=== PATIENT | female | born 1960 | race Hispanic/Latino ===

== ENCOUNTER 2018-01-21 16:41 | Inpatient (IN) | payer MEDICAID, OTHER ==
--- NOTE | 2018-01-21 17:09 | ED PDOC ---
HPI:STROKE - Historian Historian: Patient, Family - TPA Positive for Contraindication: No - Notes: Notes:: Pt presents to ED with Mother with c/o difficulty speaking that started @ 2:30 PM today. Pt was watching TV when she started feeling dizzy and speech became difficulty. Denies GIBSON, paresthesias, weakness, fever, head trauma. Pt recently discharged from psych unit and medications were changed but did not know which ones. Pt states shaking in arms is not new. NIHSS Stroke Scale - Date/Time Evaluation Performed Date Performed: 01/21/18 Time Performed: 17:06 When Was NIHSS Performed: Code Stroke - How Severe is the Stroke Level of Consciousness: 0=Alert LOC to Questions: 1=One correct LOC to commands: 0=Obeys both correctly Best Gaze: 0=Normal Visual: 0=No visual loss Facial: 0=Normal Motor Arm - Left: 0=No drift Motor Arm - Right: 0=No drift Motor Leg - Left: 0=No drift Motor Leg - Right: 0=No drift Limb Ataxia: 0=Absent Sensory: 0=Normal Best Language: 1=Mild to moderate aphasia Dysarthia: 0=Normal articulation Extinction & Inattention (Neglect): 0=Normal, no object Score: 2 rTPA Inclusion/Exclusion - Refusal of Treatment Patient Refused Treatment: No - Inclusion Criteria for Altepase Patient is 18 years or Older: Yes The Clinical Diagnosis of Ischemic Stroke That is Causing a Potentially Disabling Neurological Deficit: Yes Time of Onset is Well Established to be Less Than 270 Minute Before Treatment Would Begin: Yes Risk/Benefit Discussed With Patient/Family Member Present: Yes - Exclusion Criteria for Altepase Uncontrolled Hypertension at Time of Treatment (Systolic BP above 185 or Diastolic BP above 110 mmHg): No Known Bleeding Diathesis Including but Not Limited to: Platelets Below 100,000/ mm,PTT Above 40 sec After Heparin Use, Current Use of Oral Anitcoagulant With INR Greater Than 1.7 or PT Greater Than 15 secs: No Evidence of an Intracranial Hemorrhage: No Evidence of Major Acute Infarct With Signs Greater Than 1/3 MCA Territory: No Suspicion of Subarachnoid Hemorrhage on Pretreatment Evaluation Even if CT Head Negative For Hemorrhage: No - Warning to TPA With Conditions Following Conditions Weighed Against Anticipated Benefit: No Past Medical History Reviewed: Nursing Documentation, Vital Signs Vital Signs: Last Vital Signs Temp 99.7 F H 01/21/18 16:53 Pulse 81 01/21/18 16:53 Resp 20 01/21/18 16:53 BP 131/62 01/21/18 16:53 Pulse Ox 97 01/21/18 16:53 - Medical History PMH: Anxiety, Bipolar Disorder, Depression, HTN Denies: Cardia Arrhythmia, CHF, Hypercholesterolemia, Mitral Valve Prolapse, Paranoia, Peripheral Edema, Personality Disorder, Post Traumatic Stress Disorder , Chronic Kidney Disease, Schizophrenia - Surgical History Surgical History: Denies: Appendectomy, Cholecystectomy, Coronary Stent, Pacemaker - Family History Family History: States: Unknown Family Hx - Living Arrangements Living Arrangements: With Family - Social History Current smoker - smoking cessation education provided: Yes Alcohol: None Drugs: Denies - Home Medications Home Medications: Ambulatory Orders Medication Instructions Recorded Gabapentin [Neurontin] 300 mg PO TID #45 cap 01/19/18 Ibuprofen [Motrin Tab] 600 mg PO TID #45 tab 01/19/18 Nicotine 14 mg/24 hr [Nicoderm CQ] 1 patch TD DAILY #14 patch 01/19/18 Quetiapine Fumarate [Seroquel] 200 mg PO 1600 #14 tablet 01/19/18 Quetiapine Fumarate [Seroquel] 400 mg PO AMHS #14 tablet 01/19/18 Zaleplon [Sonata] 10 mg PO HS PRN #14 cap 01/19/18 buPROPion XL [Wellbutrin XL] 150 mg PO DAILY #14 t24 01/19/18 hydrOXYzine Pamoate [Vistaril] 50 mg PO TID #45 cap 01/19/18 - Allergies Allergies/Adverse Reactions: Allergies Allergy/AdvReac Type Severity Reaction Status Date / Time No Known Allergies Allergy Verified 01/13/18 00:50 Review of Systems Constitutional: Negative for: Fever, Chills Eyes: Negative for: Vision Change Cardiovascular: Negative for: Chest Pain, Palpitations Respiratory: Negative for: Cough, Shortness of Breath Gastrointestinal: Negative for: Nausea, Vomiting, Abdominal Pain, Diarrhea Musculoskeletal: Negative for: Neck Pain Skin: Negative for: Rash, Lesions Neurological: Positive for: Incoordination (Chronic), Change in Speech. Negative for: Weakness, Numbness, Confusion, Seizures, Altered Mental Status, Headache, Dizziness Physical Exam - Reviewed Nursing Documentation Reviewed: Yes Vital Signs Reviewed: Yes - Physical Exam Appears: Positive for: Well, No Acute Distress Head Exam: Positive for: ATRAUMATIC, NORMAL INSPECTION Skin: Positive for: Normal Color, Warm, Dry Eye Exam: Positive for: Normal appearance, EOMI, PERRL Neck: Positive for: Normal, Painless ROM, Supple Cardiovascular/Chest: Positive for: Regular Rate, Rhythm Respiratory: Positive for: Normal Breath Sounds Gastrointestinal/Abdominal: Positive for: Normal Exam Neurologic/Psych: Positive for: Alert, program advisor II-XII, Oriented, Aphasia, Other ( Generalized body tremors (old as per patient)). Negative for: Motor/Sensory Deficits, Facial Droop - Laboratory Results Result Diagrams: 01/21/18 17:38 01/21/18 17:38 - ECG O2 Sat by Pulse Oximetry: 97 (RA) Pulse Ox Interpretation: Normal - Core Measure Core Measure Indicators: Code Stroke - Critical Care Total Time (In Min): 60 Medical Decision Making Medical Decision Making: Time: 1701 -- Code stroke Time: 1704 Plan: -- Type and Screen -- Head CT w/o (CODE STROKE) -- CMP -- Hemoglobin -- Lipid Panel -- Troponin I -- CBC with differentials -- PTT -- Prothombin Time -- Chest Portable XR -- Sodium Chloride IV 1000 mls/hr -- Risk Compliance Analyst -- ED Obtain Labs -- Glucose, Blood, POC -- Nursing Swallow Screen -- Vital Signs Q15MIN Time: 17:[address] Chowdhury (Code stroke), recommends reevaluation and if unchanged will tPA. Time: [address] RESULTS FINDINGS: HEMORRHAGE: No intracranial hemorrhage. BRAIN: Normal dowell-white matter differentiation and density are appreciated throughout the cerebrum and cerebellum with the brainstem appearing unremarkable as well. There is no mass effect. There is no suspicious extra-axial fluid collection and the midline brain anatomy appears diffusely unremarkable. VENTRICLES: Unremarkable. No hydrocephalus. CALVARIUM: Unremarkable. PARANASAL SINUSES: Unremarkable as visualized. No significant inflammatory changes. MASTOID AIR CELLS: Unremarkable as visualized. No inflammatory changes. OTHER FINDINGS: None. IMPRESSION: Unremarkable noncontrast head CT. No significant interval change compared prior to dated 01/22/2014. Discussed with Dr. Carvalho with written down read as verification 01/21/2018 5:20 p.m.. Time: 17:[address] Chowdhury, recommends tPA. Time: 1749 CHEST X-RAY RESULTS FINDINGS: LUNGS: No active pulmonary disease. PLEURA: No significant pleural effusion identified, no pneumothorax apparent. CARDIOVASCULAR: No radiographic findings to suggest acute or significant cardiovascular disease. OSSEOUS STRUCTURES: No significant abnormalities. VISUALIZED UPPER ABDOMEN: Normal. OTHER FINDINGS: None. IMPRESSION: No active disease. No significant interval change compared to the prior examination(s). Time: 17:55 Pt administered tPA bolus and drip. Scribe Attestation: Documented by Dominique Vargas, acting as a scribe for Dr. Fernanda Carvalho MD. Provider Scribe Attestation: All medical record entries made by the Scribe were at my direction and personally dictated by me. I have reviewed the chart and agree that the record accurately reflects my personal performance of the history, physical exam, medical decision making, and the department course for this patient. I have also personally directed, reviewed, and agree with the discharge instructions and disposition. Disposition - Clinical Impression Clinical Impression: CVA (cerebral vascular accident) - Patient ED Disposition Is Patient to be Admitted: Yes - Disposition Disposition Time: 17:50 Condition: GUARDED - Pt Status Changed To: Hospital Disposition Of: Inpatient - Admit Certification Admit to Inpatient:: After my assessment, the patient will require hospitalization for at least two midnights. This is because of the severity of symptoms shown, intensity of services needed, and/or the medical risk in this patient being treated as an outpatient. - POA Present On Arrival: None
--- NOTE | 2018-01-21 17:32 | CT ---
PROCEDURE: CT HEAD WITHOUT CONTRAST. HISTORY: COMPARISON: Noncontrast head CT 01/22/2014. TECHNIQUE: Axial computed tomography images were obtained through the head/brain without intravenous contrast. Radiation dose: Due to system failure, radiation dose data is unavailable. This CT exam was performed using one or more of the following dose reduction techniques: Automated exposure control, adjustment of the mA and/or kV according to patient size, and/or use of iterative reconstruction technique. FINDINGS: HEMORRHAGE: No intracranial hemorrhage. BRAIN: Normal dowell-white matter differentiation and density are appreciated throughout the cerebrum and cerebellum with the brainstem appearing unremarkable as well. There is no mass effect. There is no suspicious extra-axial fluid collection and the midline brain anatomy appears diffusely unremarkable. VENTRICLES: Unremarkable. No hydrocephalus. CALVARIUM: Unremarkable. PARANASAL SINUSES: Unremarkable as visualized. No significant inflammatory changes. MASTOID AIR CELLS: Unremarkable as visualized. No inflammatory changes. OTHER FINDINGS: None. IMPRESSION: Unremarkable noncontrast head CT. No significant interval change compared prior to dated 01/22/2014. Discussed with Dr. Carvalho with written down read as verification 01/21/2018 5:20 p.m..
--- NOTE | 2018-01-21 17:51 | RAD ---
HISTORY: Code Stroke COMPARISON: 01/22/2014 FINDINGS: LUNGS: No active pulmonary disease. PLEURA: No significant pleural effusion identified, no pneumothorax apparent. CARDIOVASCULAR: No radiographic findings to suggest acute or significant cardiovascular disease. OSSEOUS STRUCTURES: No significant abnormalities. VISUALIZED UPPER ABDOMEN: Normal. OTHER FINDINGS: None. IMPRESSION: No active disease. No significant interval change compared to the prior examination(s).
[2018-01-21 17:53] LABS: BASO % 0.3 % (0.0-2.0); EOS # 0.1 K/uL (0.0-0.7); EOS % 0.8 % (0.0-4.0); HEMOGLOBIN 13.8 g/dL (12.0-16.0); LYMPH # 1.8 K/uL (1.0-4.3); LYMPH % 19.1 % (20.0-40.0); MEAN CELL VOLUME 99.2 fl (81.0-99.0); MEAN CORPUSCULAR HEMOGLOBIN 34.5 pg (27.0-31.0); MEAN CORPUSCULAR HGB CONC 34.8 g/dL (33.0-37.0); MONO # 0.8 K/uL (0.0-0.8); MONO % 9.1 % (0.0-10.0); NEUT # 6.6 K/uL (1.8-7.0); NEUT % 70.7 % (50.0-75.0); RBC 3.99 Mil/uL (3.80-5.20); RED CELL DISTRIBUTION WIDTH 12.3 % (11.5-14.5); WHITE BLOOD COUNT 9.3 K/uL (4.8-10.8)
[2018-01-21 18:11] LABS: ALB/GLOB RATIO 1.2 (1.0-2.1); ALBUMIN 4.2 g/dL (3.5-5.0); ALT/SGPT 30 U/L (9-52); AST/SGOT 21 U/L (14-36); BLOOD UREA NITROGEN 10 mg/dl (7-17); CALCIUM 9.7 mg/dL (8.4-10.2); GFR AFRICAN-AMERICAN > 60; GFR NON-AFRICAN AMERICAN > 60; HDL CHOLESTEROL 68 MG/DL (30-70)
[2018-01-21 18:22] LABS: LDL CHOLESTEROL 75 mg/dL (0-129)
[2018-01-21 18:27] LABS: PARTIAL THROMBOPLASTIN TIME 25.5 Seconds (25.6-37.1); PROTHROMBIN TIME 11.4 Seconds (9.8-13.1)
--- NOTE | 2018-01-21 19:31 | CP.PCM.CON ---
History of Present Illness - History of Present Illness History of Present Illness: PMD: Brandon Valderrama MD Reason for Consult: critical care management Chief complaint: confusion/trouble speaking The Patient was seen and examined in the ED HPI: the Hx was obtained partially from the Patient but mostly from the medical record. She is a 57 years old female with hx of Breast Cancer, Bipolar, self medicating misusing and abusing Psychotropic drugs. She presented to the ED with her Mother with complaint of sudden unset of dizziness and speech difficulty being garbled or slurred and mention of confusion. No fever, headache , dizziness, head trauma, LOC, chest pain nor SOB. No facial droop nor weakness to the upper nor lower extremities. Code Stroke was called. NIHSS was 2 - The Neurologist was consulted and TPA was administered after a negative CT of head. PMH: Right Breast Cancer dx 7 years ago s/p Chemo and Radiotherapy with lumpectomy; Bipolar; Depression; Involungtary Tremors; self medicating and misusing Psychotropic medications; PSH: Cervical spine tumor removal X3; Right breast lumpectomy SH: heavy smoker; No Alcohol; Lorazepam abuse; Live with family FH: States: No known family hx Allergies: NKDA Medication: Reviewed Review of Systems - Review of Systems Review of Systems: Review of systems limited because of the patients difficulty in communication - Constitutional Constitutional: absent: Anorexia, Chills, Fever, Headache - EENT Eyes: Requires Corrective Lenses. absent: Floaters, Itchy Eyes, Sees Flashes Ears: absent: Decreased Hearing, Ear Discharge, Tinnitus Nose/Mouth/Throat: absent: Epistaxis, Nasal Congestion - Cardiovascular Cardiovascular: absent: Chest Pain, Dyspnea, Edema - Respiratory Respiratory: absent: Cough, Dyspnea - Gastrointestinal Gastrointestinal: absent: Constipation, Diarrhea, Nausea, Vomiting - Genitourinary Genitourinary: absent: Dysuria, Flank Pain - Musculoskeletal Musculoskeletal: absent: Back Pain - Integumentary Integumentary: absent: Sores, Striae, Swelling - Neurological Neurological: absent: Confusion, Focal Weakness, Vertigo - Psychiatric Psychiatric: Anxiety, Depression, Suicidal Ideation - Endocrine Endocrine: absent: Polyuria - Hematologic/Lymphatic Hematologic: absent: Easy Bleeding, Easy Bruising Past Patient History - Infectious Disease Hx of Infectious Diseases: None - Past Medical History & Family History Past Medical History?: Yes - Past Social History Smoking Status: Heavy Smoker > 10 Cigarettes Daily Chewing Tobacco Use: No Cigar Use: No Alcohol: None Drugs: Denies Home Situation {Lives}: With Family - CARDIAC Hx Cardia Arrhythmia: No Hx Congestive Heart Failure: No Hx Hypercholesterolemia: No Hx Hypertension: Yes Hx Mitral Valve Prolapse: No Hx Pacemaker: No Hx Peripheral Edema: No - PULMONARY Hx Respiratory Disorders: No - NEUROLOGICAL Hx Neurological Disorder: No Other/Comment: Involuntary tremors - HEENT Hx HEENT Problems: No - RENAL Hx Chronic Kidney Disease: No - ENDOCRINE/METABOLIC Hx Endocrine Disorders: No - HEMATOLOGICAL/ONCOLOGICAL Hx Blood Disorders: No - INTEGUMENTARY Hx Dermatological Problems: No - MUSCULOSKELETAL/RHEUMATOLOGICAL Hx Musculoskeletal Disorders: Yes Hx Falls: No Other/Comment: Spinal Fusion - GASTROINTESTINAL Hx Gastrointestinal Disorders: No - GENITOURINARY/GYNECOLOGICAL Hx Genitourinary Disorders: No Hx Reproductive Disorders: No Other/Comment: Right Breast Cancer - PSYCHIATRIC Hx Anxiety: Yes Hx Bipolar Disorder: Yes Hx Depression: Yes Hx Paranoia: No Hx Post Traumatic Stress Disorder: No Hx Schizophrenia: No - SURGICAL HISTORY Hx Appendectomy: No Hx Cholecystectomy: No Hx Coronary Stent: No Other/Comment: left breast lumpectomy - ANESTHESIA Hx Anesthesia: Yes Hx Anesthesia Reactions: No Hx Malignant Hyperthermia: No Meds Allergies/Adverse Reactions: Allergies Allergy/AdvReac Type Severity Reaction Status Date / Time No Known Allergies Allergy Verified 01/13/18 00:50 - Medications Medications: Current Medications Sodium Chloride (Sodium Chloride 0.9%) 1,000 mls @ 100 mls/hr IV .Q10H DEBI Physical Exam - Constitutional Appears: No Acute Distress - Head Exam Head Exam: ATRAUMATIC, NORMAL INSPECTION, NORMOCEPHALIC - Eye Exam Eye Exam: EOMI, Normal appearance Pupil Exam: NORMAL ACCOMODATION, PERRL - ENT Exam ENT Exam: Mucous Membranes Moist, Normal Exam, Normal External Ear Exam - Neck Exam Neck exam: Positive for: Full Rom, Normal Inspection. Negative for: Lymphadenopathy, Tenderness - Respiratory Exam Respiratory Exam: Clear to Auscultation Bilateral. absent: Rales, Rhonchi, Wheezes - Cardiovascular Exam Cardiovascular Exam: REGULAR RHYTHM, RRR, +S1, +S2. absent: Gallop, JVD - GI/Abdominal Exam GI & Abdominal Exam: Normal Bowel Sounds, Soft. absent: Mass, Organomegaly, Tenderness - Rectal Exam Rectal Exam: Deferred - Extremities Exam Extremities exam: Positive for: full ROM, normal inspection. Negative for: joint swelling, pedal edema - Back Exam Back exam: NORMAL INSPECTION. absent: CVA tenderness (L), CVA tenderness (R) - Neurological Exam Neurological exam: Alert, CN II-XII Intact, Oriented x3, Reflexes Normal Additional comments: No facial droop, Cluttered, Mumbling speech with difficulty to find words. - Psychiatric Exam Psychiatric exam: Flat Affect - Skin Skin Exam: Dry, Intact, Normal Color, Warm Results - Vital Signs Recent Vital Signs: Last Vital Signs Temp 98.9 F 01/21/18 18:02 Pulse 73 01/21/18 18:31 Resp 15 01/21/18 18:31 BP 128/78 01/21/18 18:31 Pulse Ox 97 01/21/18 19:12 - Labs Result Diagrams: 01/21/18 17:38 01/21/18 17:38 Labs: Laboratory Results - last 24 hr 01/21/18 01/21/18 01/21/18 17:38 17:38 17:38 WBC 9.3 RBC 3.99 Hgb 13.8 Hct 39.6 MCV 99.2 H MCH 34.5 H MCHC 34.8 RDW 12.3 Plt Count 306 MPV 8.0 Neut % (Auto) 70.7 Lymph % (Auto) 19.1 L Nance % (Auto) 9.1 Eos % (Auto) 0.8 Baso % (Auto) 0.3 Neut # (Auto) 6.6 Lymph # (Auto) 1.8 Nance # (Auto) 0.8 Eos # (Auto) 0.1 Baso # (Auto) 0.0 PT 11.4 INR 1.0 APTT 25.5 L Sodium 143 Potassium 3.7 Chloride 102 Carbon Dioxide 25 Anion Gap 20 BUN 10 Creatinine 0.6 L Est GFR ( Amer) > 60 Est GFR (Non-Af Amer) > 60 Random Glucose 87 Calcium 9.7 Total Bilirubin 0.3 AST 21 ALT 30 Alkaline Phosphatase 73 Troponin I < 0.0120 Total Protein 7.7 Albumin 4.2 Globulin 3.5 Albumin/Globulin Ratio 1.2 Triglycerides 55 Cholesterol 168 LDL Cholesterol Direct 75 HDL Cholesterol 68 - Impressions Impression: NSR 74 /min Prolonged QT - Imaging and Cardiology Chest x-ray Status: Image reviewed by me, Report reviewed by me Additional comment: No Active Disease CT scan - head Status: Image reviewed by me, Report reviewed by me Additional comment: Unremarkable Assessment & Plan - Assessment and Plan (Free Text) Assessment: #. Abnormal speech R/o CVA #. Bipolar #. Involuntary tremors #. Hx of Breast Cancer Plan: 57 years old female with hx of Breast Cancer and Bipolar presented to the ED with complaint of sudden unset of dizziness and speech difficulty being garbled or slurred and mention of confusion. No fever, headache, dizziness, head trauma , LOC, chest pain nor SOB. No facial droop nor weakness to the upper nor lower extremities. Code Stroke was called. NIHSS was 2 - The Neurologist was consulted and TPA was administered after a negative CT of head. #. Abnormal speech R/o CVA vs Psychiatric disorder. Serotonin syndrome unlikely but consider Tachyphemia if CVA is ruled out - CT head: no bleed - Consult Dr Chowdhury Neurology - Patient received TPA - NPO failed swallow eval by nurse - Neuro checks Q1H - OT/PT - Swallow eval - Speech therapy #. Bipolar - Consult Psychiatry Dr Ayers #. Involuntary tremors - treat with Propranol if severe #. Hx of Breast Cancer - Treateded #. DVT Prophylaxis with SCD #. Code Status: Full - Date & Time Date: 01/21/18 Time: 19:31
[2018-01-21] MEDS: Sodium Chloride 0.9% 1,000 ML IV SCH (20:26)
[2018-01-21] MEDS: Potassium Chl 20 mEq in D5-NS 1,000 ML IV SCH (21:00)
[2018-01-21] MEDS ORDERED: Sodium Chloride 0.9% 50 ML IV ONE (21:02)
[2018-01-21] MEDS ORDERED: Iodixanol 320 MG/ML 100 ML BOTTLE IV ONE (21:02)
[2018-01-22 05:49] LABS: BASO % 0.4 % (0.0-2.0); EOS # 0.1 K/uL (0.0-0.7); EOS % 1.1 % (0.0-4.0); HEMOGLOBIN 13.8 g/dL (12.0-16.0); LYMPH # 2.7 K/uL (1.0-4.3); LYMPH % 26.7 % (20.0-40.0); MEAN CELL VOLUME 100.3 fl (81.0-99.0); MEAN CORPUSCULAR HEMOGLOBIN 34.4 pg (27.0-31.0); MEAN CORPUSCULAR HGB CONC 34.3 g/dL (33.0-37.0); MEAN PLATELET VOLUME 8.3 fl (7.2-11.7); MONO # 0.9 K/uL (0.0-0.8); MONO % 8.7 % (0.0-10.0); NEUT # 6.3 K/uL (1.8-7.0); NEUT % 63.1 % (50.0-75.0); RBC 4.02 Mil/uL (3.80-5.20); RED CELL DISTRIBUTION WIDTH 12.6 % (11.5-14.5); WHITE BLOOD COUNT 9.9 K/uL (4.8-10.8)
[2018-01-22 05:52] LABS: BLOOD UREA NITROGEN 8 mg/dl (7-17); CALCIUM 9.2 mg/dL (8.4-10.2); GFR AFRICAN-AMERICAN > 60; GFR NON-AFRICAN AMERICAN > 60
[2018-01-22] MEDS: Potassium Chl 20 mEq in D5-NS 1,000 ML IV SCH (10:11)
--- NOTE | 2018-01-22 11:21 | HP ---
CHIEF COMPLAINT: Speaking difficulty. HISTORY OF PRESENT ILLNESS: This is a 57-year-old female without significant past medical history who was watching TV yesterday afternoon and suddenly starting having difficulty speaking, so the patient was brought to the emergency room where the patient was found to have acute stroke and tPA administered and was admitted for further management. REVIEW OF SYSTEMS: Positive difficulty speaking. Review of systems otherwise is negative for headache, dizziness, syncope, loss of consciousness, chest pain, shortness of breath, nausea, vomiting, diarrhea, constipation, any new joint or extremity pain. Review of systems of all other organ systems is unremarkable. PAST MEDICAL HISTORY: Significant for questionable hypertension. PAST SURGICAL HISTORY: Unremarkable. PAST PSYCHIATRIC HISTORY: Significant for anxiety, depression, and bipolar disorder. PERSONAL HISTORY: The patient is currently nonsmoker, nondrinker. No substance abuse. MEDICATIONS: The patient is on multiple medications including gabapentin, ibuprofen, nicotine patch, quetiapine, Sonata, Wellbutrin, and . ALLERGIES: THE PATIENT IS NOT ALLERGIC TO ANY MEDICATIONS. FAMILY HISTORY: Noncontributory. PHYSICAL EXAMINATION: GENERAL: A well-built, well-nourished 57-year-old female, in no acute distress. VITAL SIGNS: Temperature 98.6, pulse 75, respirations 19, blood pressure 114/75, and saturations 97%. HEENT: Pupils reacting to light. No JVD. No thyromegaly. No lymphadenopathy. No nystagmus. Normocephalic, atraumatic skull. HEART: S1 and S2, normal and regular. No significant murmur, gallop or rub is heard. LUNGS: Shows good bilateral air exchange. No rales or rhonchi. ABDOMEN: Soft and nontender. No organomegaly. No fluid. Bowel sounds are plus and normal. EXTREMITIES: No edema. No calf swelling. No tenderness. No acute ischemia. CENTRAL NERVOUS SYSTEM: The patient is alert, awake, and oriented x3. The patient has speech abnormality and has dysarthria, but there is no acute focal motor or sensory neurological deficits, otherwise. DIAGNOSTIC DATA: Available diagnostic data reviewed. CAT scan head did not reveal any acute territorial infarct or bleeding. Her troponin levels are negative. WBC 9.9, hemoglobin 13.3, hematocrit 40.3, and platelets 309. Sodium 144, potassium 4.2, chloride 104, bicarb 27, BUN 8, and creatinine 0.8. SMA-12 is unremarkable. Chest x-ray is clear. CTA of head and neck is done, but report is pending. EKG shows normal sinus rhythm without any significant acute ST-T changes. The patient has terminal positive R-wave in AVR, consistent with right axis and incomplete right bundle-branch block. ADMITTING IMPRESSION: Acute cerebrovascular accident, dysarthria, bipolar disorder, hypertension, anxiety, and depression. PLAN: As ordered. Case and plan discussed with the patient. Samuel Mireles MD
--- NOTE | 2018-01-22 12:49 | CP.PCM.CON ---
History of Present Illness - History of Present Illness History of Present Illness: 5 57 yr old woman who has pmh of right sided breast cancer, dx 7 years ago, s/p chemotherapy, radiotherapy and lumpectomy, bipolar disease who was BIBA to the Er yesterday at about 330 pm with lip droop, with aphasia and some right sided mild weakness. Symptoms started at 2:30 pm yesterday, and TPA was given within 3 hours of presentation. I was able to conduct a neurology exam via video and found that the patient did have word finding difficulties with right sided weakness. Today, her symptoms are resolved after TPA. NIH score is 0 PMH: Right Breast Cancer dx 7 years ago s/p Chemo and Radiotherapy with lumpectomy; Bipolar; Depression; Involungtary Tremors; self medicating and misusing Psychotropic medications; PSH: Cervical spine tumor removal X3; Right breast lumpectomy SH: heavy smoker; No Alcohol; Lorazepam abuse; Live with family FH: States: No known family hx Allergies: NKDA On exam: Neurological exam is normal. She has tremendous amount of voluntary tremors and tongue is midline. good strength bilaterally, no sensory issues noted. Past Patient History - Infectious Disease Hx of Infectious Diseases: None - Past Medical History & Family History Past Medical History?: Yes - Past Social History Smoking Status: Heavy Smoker > 10 Cigarettes Daily Chewing Tobacco Use: No Cigar Use: No Alcohol: None Drugs: Denies Home Situation {Lives}: With Family - CARDIAC Hx Cardia Arrhythmia: No Hx Congestive Heart Failure: No Hx Hypercholesterolemia: No Hx Hypertension: Yes Hx Mitral Valve Prolapse: No Hx Pacemaker: No Hx Peripheral Edema: No - PULMONARY Hx Respiratory Disorders: No - NEUROLOGICAL Hx Neurological Disorder: No Other/Comment: Involuntary tremors - HEENT Hx HEENT Problems: No - RENAL Hx Chronic Kidney Disease: No - ENDOCRINE/METABOLIC Hx Endocrine Disorders: No - HEMATOLOGICAL/ONCOLOGICAL Hx Blood Disorders: No - INTEGUMENTARY Hx Dermatological Problems: No - MUSCULOSKELETAL/RHEUMATOLOGICAL Hx Musculoskeletal Disorders: Yes Hx Falls: No Other/Comment: Spinal Fusion - GASTROINTESTINAL Hx Gastrointestinal Disorders: No - GENITOURINARY/GYNECOLOGICAL Hx Genitourinary Disorders: No Hx Reproductive Disorders: No Other/Comment: Right Breast Cancer - PSYCHIATRIC Hx Anxiety: Yes Hx Bipolar Disorder: Yes Hx Depression: Yes Hx Paranoia: No Hx Post Traumatic Stress Disorder: No Hx Schizophrenia: No - SURGICAL HISTORY Hx Appendectomy: No Hx Cholecystectomy: No Hx Coronary Stent: No Other/Comment: left breast lumpectomy - ANESTHESIA Hx Anesthesia: Yes Hx Anesthesia Reactions: No Hx Malignant Hyperthermia: No Meds Allergies/Adverse Reactions: Allergies Allergy/AdvReac Type Severity Reaction Status Date / Time No Known Allergies Allergy Verified 01/13/18 00:50 - Medications Medications: Current Medications Sodium Chloride (Sodium Chloride 0.9%) 1,000 mls @ 100 mls/hr IV .Q10H DEBI Last Admin: 01/21/18 20:26 Dose: 100 mls/hr Potassium Chloride/Dextrose/Sod Cl (Potassium Chl 20 Meq In D5-Ns) 1,000 mls @ 100 mls/hr IV .Q10H DEBI Stop: 01/22/18 20:34 Last Admin: 01/22/18 10:11 Dose: 100 mls/hr Nicotine (Nicoderm Cq) 1 patch TD DAILY DEBI Last Admin: 01/22/18 10:12 Dose: 1 patch Results - Vital Signs Recent Vital Signs: Last Vital Signs Temp 98.4 F 01/22/18 09:00 Pulse 72 01/22/18 10:00 Resp 16 01/22/18 10:00 BP 102/66 01/22/18 10:00 Pulse Ox 97 01/22/18 10:00 - Labs Result Diagrams: 01/22/18 05:04 01/22/18 05:04 Labs: Laboratory Results - last 24 hr 01/21/18 01/21/18 01/21/18 17:00 17:26 17:38 WBC 9.3 RBC 3.99 Hgb 13.8 Hct 39.6 MCV 99.2 H MCH 34.5 H MCHC 34.8 RDW 12.3 Plt Count 306 MPV 8.0 Neut % (Auto) 70.7 Lymph % (Auto) 19.1 L [place] % (Auto) 9.1 Eos % (Auto) 0.8 Baso % (Auto) 0.3 Neut # (Auto) 6.6 Lymph # (Auto) 1.8 [place] # (Auto) 0.8 Eos # (Auto) 0.1 Baso # (Auto) 0.0 PT INR APTT Sodium Potassium Chloride Carbon Dioxide Anion Gap BUN Creatinine Est GFR ( Amer) Est GFR (Non-Af Amer) POC Glucose (mg/dL) 95 Random Glucose Calcium Total Bilirubin AST ALT Alkaline Phosphatase Troponin I Total Protein Albumin Globulin Albumin/Globulin Ratio Triglycerides Cholesterol LDL Cholesterol Direct HDL Cholesterol Vitamin B12 TSH 3rd Generation Blood Type O POSITIVE Antibody Screen Negative BBK History Checked No verified bt 01/21/18 01/21/18 01/22/18 17:38 17:38 05:04 WBC 9.9 RBC 4.02 Hgb 13.8 Hct 40.3 MCV 100.3 H MCH 34.4 H MCHC 34.3 RDW 12.6 Plt Count 309 MPV 8.3 Neut % (Auto) 63.1 Lymph % (Auto) 26.7 [place] % (Auto) 8.7 Eos % (Auto) 1.1 Baso % (Auto) 0.4 Neut # (Auto) 6.3 Lymph # (Auto) 2.7 [place] # (Auto) 0.9 H Eos # (Auto) 0.1 Baso # (Auto) 0.0 PT 11.4 INR 1.0 APTT 25.5 L Sodium 143 Potassium 3.7 Chloride 102 Carbon Dioxide 25 Anion Gap 20 BUN 10 Creatinine 0.6 L Est GFR ( Amer) > 60 Est GFR (Non-Af Amer) > 60 POC Glucose (mg/dL) Random Glucose 87 Calcium 9.7 Total Bilirubin 0.3 AST 21 ALT 30 Alkaline Phosphatase 73 Troponin I < 0.0120 Total Protein 7.7 Albumin 4.2 Globulin 3.5 Albumin/Globulin Ratio 1.2 Triglycerides 55 Cholesterol 168 LDL Cholesterol Direct 75 HDL Cholesterol 68 Vitamin B12 TSH 3rd Generation Blood Type Antibody Screen BBK History Checked 01/22/18 01/22/18 05:04 06:49 WBC RBC Hgb Hct MCV MCH MCHC RDW Plt Count MPV Neut % (Auto) Lymph % (Auto) [place] % (Auto) Eos % (Auto) Baso % (Auto) Neut # (Auto) Lymph # (Auto) [place] # (Auto) Eos # (Auto) Baso # (Auto) PT INR APTT Sodium 144 Potassium 4.2 Chloride 104 Carbon Dioxide 27 Anion Gap 17 BUN 8 Creatinine 0.6 L Est GFR ( Amer) > 60 Est GFR (Non-Af Amer) > 60 POC Glucose (mg/dL) Random Glucose 112 H Calcium 9.2 Total Bilirubin AST ALT Alkaline Phosphatase Troponin I Total Protein Albumin Globulin Albumin/Globulin Ratio Triglycerides Cholesterol LDL Cholesterol Direct HDL Cholesterol Vitamin B12 643 TSH 3rd Generation 1.75 Blood Type Antibody Screen BBK History Checked - Imaging and Cardiology CT scan - head Status: Report reviewed by me (Normal ct head from today and yesterday. ) Assessment & Plan - Assessment and Plan (Free Text) Assessment: 57 yr old woman with aphasia now resolved, NIH stroke scale 0, who responded to TPA well and is now symptom free. We will still proceed with stroke workup. PLan: 1. MRI Brain diffusion protocol 2. hold aspirin until wednesday 3. ECHO 4. CTA head completed 5. PT St OT Thank you dr han
--- NOTE | 2018-01-22 12:53 | CT ---
PROCEDURE: CT HEAD WITHOUT CONTRAST. HISTORY: CVA COMPARISON: 01/21/2018 TECHNIQUE: Axial computed tomography images were obtained through the head/brain without intravenous contrast. Radiation dose: Total exam DLP = 843.04 mGy-cm. This CT exam was performed using one or more of the following dose reduction techniques: Automated exposure control, adjustment of the mA and/or kV according to patient size, and/or use of iterative reconstruction technique. FINDINGS: HEMORRHAGE: No intracranial hemorrhage. BRAIN: No mass effect or edema. No atrophy or chronic microvascular ischemic changes. No evidence of acute infarct. Normal dowell/white matter differentiation is preserved. VENTRICLES: Unremarkable. No hydrocephalus. CALVARIUM: Unremarkable. PARANASAL SINUSES: Unremarkable as visualized. No significant inflammatory changes. MASTOID AIR CELLS: Unremarkable as visualized. No inflammatory changes. OTHER FINDINGS: None. IMPRESSION: No evidence of acute infarct. No intracranial mass or hemorrhage. Unremarkable examination.
--- NOTE | 2018-01-22 13:16 | PN ---
DATE: 01/22/2018 CRITICAL CARE PROGRESS NOTE LOCATION: The patient in ICU, bed 434. TIME SPENT: 35 minutes. SUBJECTIVE: The patient is seen and evaluated at the bedside. Past medical, surgical, and family history reviewed. A 57-year-old female with history significant for bipolar disorder and CA breast admitted through emergency room, presenting with sudden onset of dizziness, speech difficulty, being garbled or slurred and mention of confusion, not associated with fever, headache or head trauma or loss of consciousness. CT head negative on admission, status post tPA as per neurology consultation. Failed swallow evaluation. Admitted to ICU. Remains alert and awake. Able to follow commands appropriate. Speech improved and clear. Denies headache. No shortness of breath or chest pain. Complaining of mild epigastric pain, associated with her usual acid reflux. Tremor of both hands. OBJECTIVE: VITAL SIGNS: Temperature 98.4, heart rate 72 and regular, blood pressure 106/77, mean arterial pressure 86, respiratory rate 16, thoracoabdominal, saturation 98% on room air. INTAKE AND OUTPUT: Intake 100 mL, positive balance of 100. Weight 135 pounds. HEENT: Pupils are reactive. Conjunctivae pink. Sclerae white. NECK: Supple. Trachea central. CHEST: Bilateral breath sounds. HEART: Rhythm regular. S1 and S2 normal intensity. LUNGS: Bilateral breath sounds clear to auscultation. EXTREMITIES: Positive for full range of motion. Normal inspection. Mild involuntary tremor. NEUROLOGIC: Cranial nerves intact. Oriented to name, place and time. Normal reflex. No facial droop. Mumbling speech with difficulty, improved compared to presentation. CURRENT MEDICATIONS: Nicotine patch one patch daily, potassium chloride with D5 normal saline at 100 mL/hour. LABORATORY DATA: WBC 9.9, hemoglobin 13.8, hematocrit 40.2, and platelet count 309,000. PT 11.4, INR 1, and PTT 25.5. SMA-7 sodium 144, potassium 4.2, chloride 104, CO2 27, BUN 8, creatinine 0.6, and random glucose 112. Microbiology, none reported. Head CT unremarkable. Chest x-ray; no acute infiltrate. Report of head and neck CTA pending. MRI head pending. IMPRESSION AND PLAN: 1. Neurologic: Admitted with garbled speech. Initial CT head negative status post tPA. Remains wakeful. No headache. Still with garbled speech and involuntary tremor. Suspect extrapyramidal symptoms related to long-term use of antipsychotic medications. Follow up MRI of head. 2. Pulmonary: No acute issues. 3. Cardiac: telemetry sinus rhythm. No arrhythmias noted. 4. Hematology: Normal white count, normal platelet count, normal hemoglobin and hematocrit. 5. Gastrointestinal: Possible gastritis, no evidence of active GI bleeding. 6. Renal: No acute issues noted. 7. Psychiatric: History of bipolar disorder, needs followup by evaluation and recommendation by psych consult on board. 8. Continue DVT and GI prophylaxis. 9. Hold anticoagulation until repeat CT head and MRI report available. Swallow evaluation, Pepcid 20 mg and Protonix 40 IV daily. Vicente Velasco MD
[2018-01-23 05:24] LABS: MEAN CELL VOLUME 99.5 fl (81.0-99.0); MEAN CORPUSCULAR HEMOGLOBIN 34.4 pg (27.0-31.0); MEAN CORPUSCULAR HGB CONC 34.6 g/dL (33.0-37.0); RBC 4.07 Mil/uL (3.80-5.20); RED CELL DISTRIBUTION WIDTH 12.1 % (11.5-14.5); WHITE BLOOD COUNT 12.3 K/uL (4.8-10.8)
[2018-01-23 05:34] LABS: ALB/GLOB RATIO 1.1 (1.0-2.1); ALBUMIN 3.7 g/dL (3.5-5.0); AST/SGOT 21 U/L (14-36); BLOOD UREA NITROGEN 8 mg/dl (7-17); CALCIUM 9.2 mg/dL (8.4-10.2); GFR AFRICAN-AMERICAN > 60; GFR NON-AFRICAN AMERICAN > 60
[2018-01-23 05:35] LABS: ALT/SGPT 26 U/L (9-52)
[2018-01-23] MEDS ORDERED: Sodium Chloride 0.9% 1,000 ML IV SCH ×2 (07:45→08:20)
--- NOTE | 2018-01-23 07:58 | PN ---
DATE: 01/23/2018 SUBJECTIVE: The patient is seen and examined. Interim events noted. Consults noted and appreciated. The patient remains in Intensive Care Unit . The patient feels better, sleeping, arousable, and no deficits. Back to her usual state. PHYSICAL EXAMINATION GENERAL: The patient is in no acute distress. VITAL SIGNS: Stable. HEART: S1 and S2, normal and regular. LUNGS: Good bilateral air exchange. ABDOMEN: Soft and nontender. EXTREMITIES: No edema. No calf swelling. No tenderness. No acute ischemia. CENTRAL NERVOUS SYSTEM: Exam is essentially unchanged. DIAGNOSTIC DATA: Available diagnostic data reviewed. Telemetry monitoring does not show significant arrhythmia. Neurology followup and interventions noted and appreciated. ASSESSMENT AND PLAN: Overall, the patient's general medical condition is stable and improved. Plan as ordered. Samuel Mireles MD
--- NOTE | 2018-01-23 08:09 | CP.PCM.PN ---
Subjective - Date & Time of Evaluation Date of Evaluation: 01/23/18 Time of Evaluation: 08:09 - Subjective Subjective: Ms. Heath was seen and examined at the bedside. She is alert, oriented in all spheres. She denies any headache but complains of dizziness, lightheadedness with movement of her head. She is able to follow simple commands with noted tremors in her right upper extremity. She states of diplopia with her eyes looking at her left side, but normal with her right side. She has some redness in her face and neck, but denies any itchiness. Her blood pressure has been in the low 100 and 90's sytolic. The repeat CT scan of the head yesterday showed no evidence of acute infarct. No intracranial mass or hemorrhage. Objective - Vital Signs/Intake and Output Vital Signs (last 24 hours): Temp Pulse Resp BP Pulse Ox 98.4 F 68 14 94/61 L 93 L 01/23/18 04:00 01/23/18 06:00 01/23/18 06:00 01/23/18 06:00 01/23/18 06:00 - Medications Medications: Current Medications Diazepam (Valium) 2 mg PO Q12 DEBI Sodium Chloride (Sodium Chloride 0.9%) 1,000 mls @ 100 mls/hr IV .Q10H DEBI Last Admin: 01/21/18 20:26 Dose: 100 mls/hr Sodium Chloride (Sodium Chloride 0.9%) 1,000 mls @ 100 mls/hr IV .Q10H DEBI Stop: 01/23/18 21:45 Metoclopramide HCl (Reglan) 10 mg IVP Q6 PRN PRN Reason: Nausea/Vomiting Last Admin: 01/23/18 08:00 Dose: 10 mg Nicotine (Nicoderm Cq) 1 patch TD DAILY [facility] Last Admin: 01/22/18 10:12 Dose: 1 patch Pantoprazole Sodium (Protonix Inj) 40 mg IVP DAILY [facility] Last Admin: 01/22/18 14:12 Dose: 40 mg - Labs Labs: 01/23/18 04:25 01/23/18 04:25 PT 11.4 Seconds (9.8-13.1) 01/21/18 17:38 INR 1.0 (0.9-1.2) 01/21/18 17:38 APTT 25.5 Seconds (25.6-37.1) L 01/21/18 17:38 - Constitutional Appears: No Acute Distress - Head Exam Head Exam: NORMAL INSPECTION - Eye Exam Additional comments: nystagmus with the left eye when looking at her left side. - Neurological Exam Neurological Exam: Alert, Awake, Oriented x3 Neuro motor strength exam: Left Upper Extremity: 4, Right Upper Extremity: 4, Left Lower Extremity: 4, Right Lower Extremity: 4 Additional comments: Alert, oriented, follows commands. sensation is intact. Assessment and Plan (1) CVA (cerebral vascular accident) Assessment & Plan: Case discussed with Dr. Chowdhury, continue all current medical, physical regimen. Recommend hydration to keep blood pressure at least 120 systolic, discontinue IVF if sytolic blood pressure is above 160 and diastolic blood pressure above 110 mm/hg. Recommend valium 2 mg PO Q 12 hours PRN with meclizine with severe dizziness. Recommend keep head of bed elevated at least 30 degress, encourage po intake if tolerated. Status: Acute
[2018-01-23] MEDS ORDERED: Pneumococcal 23-Valent Vaccine IM ONE (08:44)
--- NOTE | 2018-01-23 11:02 | CT ---
PROCEDURE: CT Angiography of the neck and Brain. HISTORY: Confusion/slurred speech COMPARISON: Comparison is made to the previous CT of the head without contrast dated 01/21/2018 TECHNIQUE: CT angiography of the intracranial arteries was performed. Coronal and sagittal maximum intensity projection reformated images were generated. This CT exam was performed using one or more of the following dose reduction techniques: Automated exposure control, adjustment of the mA and/or kV according to patient size, and/or use of iterative reconstruction technique. FINDINGS: CTA of the neck: RIGHT CAROTID ARTERIES: Common Carotid Artery: No evidence of significant stenosis. Carotid Bifurcation: No evidence of significant stenosis Internal Carotid Artery:Tortuous internal carotid artery extending to the retropharyngeal region. External Carotid Artery (proximal branches): Normal. LEFT CAROTID ARTERIES: Common Carotid Artery: No evidence of focal stenosis. Carotid Bifurcation: No evidence of significant stenosis Internal Carotid Artery:Tortuous internal carotid artery extending to the retro pharyngeal region. External Carotid Artery (proximal branches): Normal. VERTEBRAL ARTERIES: Right Vertebral Artery: The distal right vertebral artery is small in size. Left Vertebral Artery: The left vertebral artery is dominant. INTERNAL CEREBRAL ARTERIES: Unremarkable. The skull base, petrous, cavernous and supraclinoid segments are bilaterally widely patent. ANTERIOR CEREBRAL ARTERIES: Unremarkable. A1 and A2 segments are widely patent. Smaller distal branches unremarkable, as visualized. MIDDLE CEREBRAL ARTERIES: Unremarkable. M1 and M2 segments are widely patent. Perisylvian branches grossly symmetric. POSTERIOR CIRCULATION: Basilar Artery: Unremarkable. Distal Vertebral Arteries: Unremarkable. Posterior Cerebral Arteries: Unremarkable. Posterior Inferior Cerebellar Arteries: Unremarkable. ANEURYSM/ VASCULAR MALFORMATIONS: None. OTHER FINDINGS: The left thyroid lobe is not visualized. The right thyroid lobe lobes is enlarged. There is right thyroid nodule measures 1 centimeter. Internal anterior fusion and fixation noted at the mid cervical spine IMPRESSION: No evidence of focal stenosis or occlusion in the carotid arteries and intracranial arteries. Tortuous bilateral internal carotid arteries extending to the retropharyngeal region.
[2018-01-23] MEDS ORDERED: Albuterol-Ipratrop 3 mg / 0.5 (3 ml) UD INH PRN (11:17)
--- NOTE | 2018-01-23 12:22 | PN ---
DATE: 01/23/2018 LOCATION: The patient in ICU bed 429. TIME SPENT: 35 minutes. SUBJECTIVE: The patient is seen and evaluated at the bedside. Past medical, surgical, social and family history reviewed. A 57-year-old female with bipolar disorder, carcinoma of left breast status post left lumpectomy, chemo and radiation treatment, admitted with sudden onset of dizziness, difficulty with speech being garbled. CT head negative on admission, suspected CVA status post tPA. Overnight afebrile, normotensive. Telemetry sinus rhythm, saturation 95% on room air. This morning alert and awake, follows commands, appropriate. Complaining of dizziness, lightheadedness with movement of her head, complaining of shaky movements of both hands. Also not complaining of diplopia with her eyes looking at her left side. OBJECTIVE: VITAL SIGNS: Temperature 98.4, heart rate 68, respiratory rate 14, thoracoabdominal, blood pressure 94/61, and pulse oximetry 93%. HEENT: Pupils are equal, round, and reactive to light and accommodation. Extraocular muscles intact. Conjunctivae pink. Sclerae white. NECK: Supple. CHEST: Bilateral breath sounds clear to auscultation. HEART: Rhythm regular. S1 and S2 normal. No audible murmur. ABDOMEN: Bowel sounds are present. Soft. Liver and spleen not palpable. Bladder not distended. EXTREMITIES: No clubbing, cyanosis or edema. NEUROLOGIC: Left upper extremity 4/5. Right upper extremity 4/5. Left lower extremity 4/5. Right lower extremity 4/5. Deep tendon reflexes 2+ bilaterally. Plantar flexor. CURRENT MEDICATIONS: Sodium chloride 100 mL/hour, Protonix 40 IV daily, nicotine patch daily, Reglan 10 mg IV every 6 hours p.r.n., and Valium 2 mg p.o. every 12 hours. LABORATORY DATA: WBC 12.3, hemoglobin 14, hematocrit 40.5, and platelet count of 307,000. PT 11.4, INR 1, and PTT 25.5. SMA-7; sodium 140, potassium 3.9, chloride 102, CO2 25, BUN 17, creatinine 0.5, random glucose 104, calcium 9.2, total bilirubin 0.5, AST 21, ALT 26, alkaline phosphatase 78, and albumin 3.7. Vitamin B12 643. TSH of 1.75. Microbiology, none reported. Head CT dated 01/22/2018, no mass effect or edema. No atrophy or chronic microvascular ischemic changes, evidence of acute infarct. Head and neck CT angiography bilateral internal carotid arteries extending to the retropharyngeal region, no evidence of focal stenosis or occlusion in the carotid arteries and intracranial arteries. IMPRESSION AND PLAN: 1. Neurologic: Admitted with garbled speech. Initial CT head negative status post tPA. Remains wakeful. Speech improved. Involuntary tremor of both hands, more on the left than the right persist, suspect extrapyramidal symptoms related to long-term use of antipsychotic medications. MRI of head could not be done due to claustorphobia.. 2. Pulmonary: Chronic smoker with chronic obstructive lung disease. Continue DuoNeb as every 6 hours, cardiac telemetry sinus rhythm. No arrhythmia noted. 3. Hematology: Mild leukocytosis, probably reactive. Monitor for any evidence of infection. 4. Renal, no acute issues. 5. GI: Stable. Tolerating p.o. feeds. 6. Hypotension: The patient complaining of dizziness and ringing in the ear, suspect vertigo as per neurology. Recommended hydration along with Antivert and Valium to see response to treatment. 7. Continue DVT. GI prophylaxis. Aspirin to resume tomorrow. Vicente Velasco MD MTDD
[2018-01-23] MEDS: Sodium Chloride 0.9% 1,000 ML IV SCH (20:45)
[2018-01-24 06:03] LABS: ALB/GLOB RATIO 1.3 (1.0-2.1); ALBUMIN 3.8 g/dL (3.5-5.0); ALT/SGPT 25 U/L (9-52); AST/SGOT 24 U/L (14-36); BLOOD UREA NITROGEN 8 mg/dl (7-17); CALCIUM 9.3 mg/dL (8.4-10.2); GFR AFRICAN-AMERICAN > 60; GFR NON-AFRICAN AMERICAN > 60
[2018-01-24 06:05] LABS: HEMOGLOBIN 13.6 g/dL (12.0-16.0); MEAN CELL VOLUME 98.9 fl (81.0-99.0); MEAN CORPUSCULAR HEMOGLOBIN 33.7 pg (27.0-31.0); MEAN CORPUSCULAR HGB CONC 34.1 g/dL (33.0-37.0); RBC 4.05 Mil/uL (3.80-5.20); RED CELL DISTRIBUTION WIDTH 12.1 % (11.5-14.5); WHITE BLOOD COUNT 10.9 K/uL (4.8-10.8)
[2018-01-24] MEDS: Sodium Chloride 0.9% 1,000 ML IV SCH ×2 (06:26→18:46)
--- NOTE | 2018-01-24 07:01 | CARD ---
APPROVED REPORT EKG Measurement Heart [id number] <Conclusion> Normal sinus rhythm Rightward axis Prolonged QT Abnormal ECG
--- NOTE | 2018-01-24 09:53 | CP.PCM.PN ---
Subjective - Date & Time of Evaluation Date of Evaluation: 01/24/18 Time of Evaluation: 09:52 - Subjective Subjective: Ms. Heath was seen and examined at the bedside. She is alert oriented in all spheres. She denies any headache, weakness, but c/o of mild dizziness which was improvement from yesterday. She remains with the extra pyramidal tremors, but able to follow all commands. She is also being seen by a psychiatrist.She claims of not able to increase PO intake so not to disturb her mother and staff. She is tolerating IVF. She needs assistance with her ADL. There was no untoward events overnight. Objective - Vital Signs/Intake and Output Vital Signs (last 24 hours): Temp Pulse Resp BP Pulse Ox 98.8 F 73 18 125/74 99 01/24/18 07:42 01/24/18 07:42 01/24/18 07:42 01/24/18 07:42 01/24/18 07:42 - Medications Medications: Current Medications Albuterol/Ipratropium (Duoneb 3 Mg/0.5 Mg (3 Ml) Ud) 3 ml INH RQ6 PRN PRN Reason: Shortness of Breath Diazepam (Valium) 2 mg PO Q12 PRN PRN Reason: Dizziness Sodium Chloride (Sodium Chloride 0.9%) 1,000 mls @ 100 mls/hr IV .Q10H [facility] Last Admin: 01/24/18 06:26 Dose: Not Given Metoclopramide HCl (Reglan) 10 mg IVP Q6 PRN PRN Reason: Nausea/Vomiting Last Admin: 01/24/18 09:19 Dose: 10 mg Nicotine (Nicoderm Cq) 1 patch TD DAILY [facility] Last Admin: 01/24/18 09:19 Dose: 1 patch Pantoprazole Sodium (Protonix Inj) 40 mg IVP DAILY [facility]BI Last Admin: 01/24/18 09:19 Dose: 40 mg - Labs Labs: 01/24/18 04:30 01/24/18 04:30 PT 11.4 Seconds (9.8-13.1) 01/21/18 17:38 INR 1.0 (0.9-1.2) 01/21/18 17:38 APTT 25.5 Seconds (25.6-37.1) L 01/21/18 17:38 - Constitutional Appears: No Acute Distress - Head Exam Head Exam: NORMAL INSPECTION - Neurological Exam Neurological Exam: Alert, Awake, Oriented x3 Neuro motor strength exam: Left Upper Extremity: 5, Right Upper Extremity: 5, Left Lower Extremity: 5, Right Lower Extremity: 5 Additional comments: No neuro deficits except for the extra pyramidal tremors. Assessment and Plan (1) CVA (cerebral vascular accident) Assessment & Plan: Case discussed with Dr. Chowdhury, continue all current medical, physical, and occupational therapies. Recommend vestibular rehab for her dizziness. Encourage increase PO intake.Recommend blood pressure control not to exceed systolic over 160 and diastolic more than 110. Will start aspirin 81 mg PO daily gab. Status: Acute
--- NOTE | 2018-01-24 10:34 | PN ---
DATE: 01/24/2018 SUBJECTIVE: The patient is seen and examined. Interim events noted. The patient is now in Progressive Care Unit on telemetry monitoring. The patient feels okay. Complains of not being able to sleep well, but no chest pain, shortness of breath, or any weakness. PHYSICAL EXAMINATION: GENERAL: The patient is in no acute distress. VITAL SIGNS: Stable. HEART: S1 and S2, normal and regular. LUNGS: Good bilateral air exchange. GASTROINTESTINAL: Abdomen is soft and nontender. EXTREMITIES: No edema. No calf swelling. No tenderness. No acute ischemia. CENTRAL NERVOUS SYSTEM: Exam is essentially unchanged. DIAGNOSTIC DATA: Available diagnostic data reviewed. Telemetry monitoring does not reveal significant arrhythmia. ASSESSMENT AND PLAN: Overall, the patient is clinically stable and improving. Plan as ordered. Neurologic followup and intervention noted and appreciated. Samuel Mireles MD
--- NOTE | 2018-01-24 13:52 | CP.PCM.CON ---
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 reportedly has history of two inpatient psychiatric hospializations , last was and patient was released on 01/19 pt has been admitted due to abuse of her psychotropic medications, taking more than prescribed of seroquel sonata and neurontin pt reported that she has been depressed as she has lost her sister 18months ago and also for not having a close relation with her son pt reported has been feeling relatively better since she was discharged from [facility] which is about three days ago, yet she stated she has been sleeping a lot possible due to the high dose of seroquel total of 1000 mg daily , pt reported feeling anxious at times, reported early insomnia, denied any changes in appetite denied symptoms of depression, denied manic or psychotic symptoms denied any current suicidal or homicidal ideation Past Patient History - Infectious Disease Hx of Infectious Diseases: None - Past Medical History & Family History Past Medical History?: Yes - Past Social History Smoking Status: Current Some Days Smoker - CARDIAC Hx Cardia Arrhythmia: No Hx Congestive Heart Failure: No Hx Hypercholesterolemia: No Hx Hypertension: Yes Hx Mitral Valve Prolapse: No Hx Pacemaker: No Hx Peripheral Edema: No - PULMONARY Hx Respiratory Disorders: No - NEUROLOGICAL Hx Neurological Disorder: No Other/Comment: Involuntary tremors - HEENT Hx HEENT Problems: No - RENAL Hx Chronic Kidney Disease: No - ENDOCRINE/METABOLIC Hx Endocrine Disorders: No - HEMATOLOGICAL/ONCOLOGICAL Hx Blood Disorders: No - INTEGUMENTARY Hx Dermatological Problems: No - MUSCULOSKELETAL/RHEUMATOLOGICAL Hx Musculoskeletal Disorders: Yes Hx Falls: No Other/Comment: Spinal Fusion - GASTROINTESTINAL Hx Gastrointestinal Disorders: No - GENITOURINARY/GYNECOLOGICAL Hx Genitourinary Disorders: No Hx Reproductive Disorders: No Other/Comment: Right Breast Cancer - PSYCHIATRIC Hx Anxiety: Yes Hx Bipolar Disorder: Yes Hx Depression: Yes Hx Paranoia: No Hx Post Traumatic Stress Disorder: No Hx Schizophrenia: No - SURGICAL HISTORY Hx Appendectomy: No Hx Cholecystectomy: No Hx Coronary Stent: No Other/Comment: left breast lumpectomy - ANESTHESIA Hx Anesthesia: Yes Hx Anesthesia Reactions: No Hx Malignant Hyperthermia: No Meds Allergies/Adverse Reactions: Allergies Allergy/AdvReac Type Severity Reaction Status Date / Time No Known Allergies Allergy Verified 01/13/18 00:50 - Medications Medications: Current Medications Albuterol/Ipratropium (Duoneb 3 Mg/0.5 Mg (3 Ml) Ud) 3 ml INH RQ6 PRN PRN Reason: Shortness of Breath Aspirin (Ecotrin) 81 mg PO DAILY [facility] Atorvastatin Calcium (Lipitor) 10 mg PO DAILY [facility] Diazepam (Valium) 2 mg PO Q12 PRN PRN Reason: Dizziness Sodium Chloride (Sodium Chloride 0.9%) 1,000 mls @ 100 mls/hr IV .Q10H [facility] Last Admin: 01/24/18 06:26 Dose: Not Given Metoclopramide HCl (Reglan) 10 mg IVP Q6 PRN PRN Reason: Nausea/Vomiting Last Admin: 01/24/18 09:19 Dose: 10 mg Nicotine (Nicoderm Cq) 1 patch TD DAILY [facility] Last Admin: 01/24/18 09:19 Dose: 1 patch Pantoprazole Sodium (Protonix Inj) 40 mg IVP DAILY [facility] Last Admin: 01/24/18 09:19 Dose: 40 mg Physical Exam - Psychiatric Exam Psychiatric exam: Anxious Additional comments: pt seen in chair, cooperative good eye contact, reported feeling anxious, anxious affect, thought form coherent, denied any current suicidal or homicidal ideation denied perceptual disturbances, non elicited alert awakeoriented to person place and time Results - Vital Signs Recent Vital Signs: Last Vital Signs Temp 98.3 F 01/24/18 12:00 Pulse 73 01/24/18 12:00 Resp 18 01/24/18 12:00 BP 121/74 01/24/18 12:00 Pulse Ox 100 01/24/18 12:00 - Labs Result Diagrams: 01/24/18 04:30 01/24/18 04:30 Labs: Laboratory Results - last 24 hr 01/23/18 01/24/18 01/24/18 07:52 04:30 04:30 WBC 10.9 H RBC 4.05 Hgb 13.6 Hct 40.0 MCV 98.9 MCH 33.7 H MCHC 34.1 RDW 12.1 Plt Count 325 ESR 7 Sodium 138 Potassium 3.9 Chloride 99 Carbon Dioxide 28 Anion Gap 15 BUN 8 Creatinine 0.5 L Est GFR ( Amer) > 60 Est GFR (Non-Af Amer) > 60 Random Glucose 110 H Calcium 9.3 Total Bilirubin 0.4 AST 24 ALT 25 Alkaline Phosphatase 77 C-React Prot High Sens Total Protein 6.6 Albumin 3.8 Globulin 2.8 Albumin/Globulin Ratio 1.3 25-OH Vitamin D Total 31.3 01/24/18 04:30 WBC RBC Hgb Hct MCV MCH MCHC RDW Plt Count ESR Sodium Potassium Chloride Carbon Dioxide Anion Gap BUN Creatinine Est GFR ( Amer) Est GFR (Non-Af Amer) Random Glucose Calcium Total Bilirubin AST ALT Alkaline Phosphatase C-React Prot High Sens 2.98 Total Protein Albumin Globulin Albumin/Globulin Ratio 25-OH Vitamin D Total Assessment & Plan - Assessment and Plan (Free Text) Assessment: bipolar i disorder most recent episode depressed moderate benzodiazepine abuse Plan: start neurontin 300 mg tid seroquel 300mg qhs vistaril 50mg q8 prn for anxiety pt psychiatricaly cleared to be discharged to rehab recommend after rehab to be linked to day program for therapy
[2018-01-24 18:30] VITALS: BMI 21.1
[2018-01-25 05:38] LABS: HEMOGLOBIN 14.1 g/dL (12.0-16.0); MEAN CELL VOLUME 98.9 fl (81.0-99.0); MEAN CORPUSCULAR HEMOGLOBIN 34.4 pg (27.0-31.0); MEAN CORPUSCULAR HGB CONC 34.8 g/dL (33.0-37.0); RBC 4.08 Mil/uL (3.80-5.20); WHITE BLOOD COUNT 12.8 K/uL (4.8-10.8)
[2018-01-25 05:53] LABS: ALB/GLOB RATIO 1.2 (1.0-2.1); ALT/SGPT 63 U/L (9-52); AST/SGOT 37 U/L (14-36); BLOOD UREA NITROGEN 7 mg/dl (7-17); CALCIUM 9.3 mg/dL (8.4-10.2); GFR AFRICAN-AMERICAN > 60; GFR NON-AFRICAN AMERICAN > 60
--- NOTE | 2018-01-25 09:36 | CP.PCM.PN ---
Objective - Vital Signs/Intake and Output Vital Signs (last 24 hours): Temp Pulse Resp BP Pulse Ox 98.5 F 72 18 102/78 96 01/25/18 07:41 01/25/18 07:41 01/25/18 07:41 01/25/18 07:41 01/25/18 07:41 - Medications Medications: Current Medications Albuterol/Ipratropium (Duoneb 3 Mg/0.5 Mg (3 Ml) Ud) 3 ml INH RQ6 PRN PRN Reason: Shortness of Breath Aspirin (Ecotrin) 81 mg PO DAILY [facility] Last Admin: 01/25/18 08:36 Dose: 81 mg Atorvastatin Calcium (Lipitor) 10 mg PO DAILY [facility] Last Admin: 01/25/18 08:36 Dose: 10 mg Diazepam (Valium) 2 mg PO HS PRN PRN Reason: Insomnia Last Admin: 01/24/18 21:57 Dose: 2 mg Gabapentin (Neurontin) 100 mg PO TID [facility] Last Admin: 01/25/18 08:37 Dose: 100 mg Metoclopramide HCl (Reglan) 10 mg IVP Q6 PRN PRN Reason: Nausea/Vomiting Last Admin: 01/25/18 08:39 Dose: 10 mg Nicotine (Nicoderm Cq) 1 patch TD DAILY [facility] Last Admin: 01/25/18 08:37 Dose: 1 patch Pantoprazole Sodium (Protonix Inj) 40 mg IVP DAILY [facility] Last Admin: 01/25/18 08:37 Dose: 40 mg - Labs Labs: 01/25/18 04:20 01/25/18 04:20 PT 11.4 Seconds (9.8-13.1) 01/21/18 17:38 INR 1.0 (0.9-1.2) 01/21/18 17:38 APTT 25.5 Seconds (25.6-37.1) L 01/21/18 17:38
--- NOTE | 2018-01-25 12:54 | CARD ---
APPROVED REPORT EXAM: Two-dimensional and M-mode echocardiogram with Doppler and color Doppler. Other Information Quality : AverageRhythm : NSR Technically limited study due to smoking. INDICATION CVA/TIA 2D DIMENSIONS IVSd0.76 (0.7-1.1cm)LVDd3.81 (3.9-5.9cm) LVOT Diameter1.86 (1.8-2.4cm)PWd0.86 (0.7-1.1cm) IVSs1.15 (0.8-1.2cm)LVDs3.44 (2.5-4.0cm) FS (%) 9.7 %PWs0.94 (0.8-1.2cm) M-Mode DIMENSIONS Left Atrium (MM)2.56 (2.5-4.0cm)IVSd0.76 (0.7-1.1cm) Aortic Root3.06 (2.2-3.7cm)LVDd3.88 (4.0-5.6cm) Aortic Cusp Exc.1.76 (1.5-2.0cm)PWd0.97 (0.7-1.1cm) IVSs1.15 cmFS (%) 25 % LVDs2.91 (2.0-3.8cm)PWs1.12 cm Mitral Valve MV E Lgplnqba14.1cm/sMV DECEL [id number] A Nbrrhkci46.7cm/s MV NTT25jwR/A ratio0.8MVA (PHT)2.62cm2 TDI Lateral E' Peak V8.47cm/sMedial E' Peak V10.43cm/sE/Lateral E'7.2 E/Medial E'5.9 LEFT VENTRICLE The left ventricle is normal size. There is normal left ventricular wall thickness. Left ventricle systolic function is normal. The Ejection Fraction is 65-70%. There is normal LV segmental wall motion. Transmitral Doppler flow pattern is Grade I-abnormal relaxation pattern. RIGHT VENTRICLE The right ventricle is normal size. There is normal right ventricular wall thickness. The right ventricular systolic function is normal. ATRIA The left atrium size is normal. The right atrium size is normal. AORTIC VALVE The aortic valve is normal in structure. No aortic regurgitation is present. There is no aortic valvular stenosis. MITRAL VALVE The mitral valve is normal in structure. There is no evidence of mitral valve prolapse. There is no mitral valve stenosis. There is no mitral valve regurgitation noted. TRICUSPID VALVE The tricuspid valve is normal in structure. There is no tricuspid valve regurgitation noted. PULMONIC VALVE The pulmonary valve is normal in structure. There is no pulmonic valvular regurgitation. GREAT VESSELS The aortic root is normal in size. The IVC is normal in size and collapses >50% with inspiration. PERICARDIAL EFFUSION The pericardium appears normal. <Conclusion> The left ventricle is normal size. There is normal left ventricular wall thickness. There is normal LV segmental wall motion. Left ventricle systolic function is normal. The Ejection Fraction is 65-70%. Transmitral Doppler flow pattern is Grade I-abnormal relaxation pattern.
--- NOTE | 2018-01-25 13:33 | CP.PCM.DIS ---
Provider - Provider Date of Admission: 01/21/18 19:15 Attending physician: Samuel Mireles MD Consults: Neurologist Dr Garza Time Spent in preparation of Discharge (in minutes): 20 Hospital Course - Lab Results Lab Results: Micro Results 01/21/18 12:24 Nose MRSA Culture (Admit) - Final MRSA NOT DETECTED Most Recent Lab Values WBC 12.8 K/uL (4.8-10.8) H 01/25/18 04:20 RBC 4.08 Mil/uL (3.80-5.20) 01/25/18 04:20 Hgb 14.1 g/dL (12.0-16.0) 01/25/18 04:20 Hct 40.4 % (34.0-47.0) 01/25/18 04:20 MCV 98.9 fl (81.0-99.0) 01/25/18 04:20 MCH 34.4 pg (27.0-31.0) H 01/25/18 04:20 MCHC 34.8 g/dL (33.0-37.0) 01/25/18 04:20 RDW 12.0 % (11.5-14.5) 01/25/18 04:20 Plt Count 336 K/uL (130-400) 01/25/18 04:20 MPV 8.3 fl (7.2-11.7) 01/22/18 05:04 Neut % (Auto) 63.1 % (50.0-75.0) 01/22/18 05:04 Lymph % (Auto) 26.7 % (20.0-40.0) 01/22/18 05:04 [place] % (Auto) 8.7 % (0.0-10.0) 01/22/18 05:04 Eos % (Auto) 1.1 % (0.0-4.0) 01/22/18 05:04 Baso % (Auto) 0.4 % (0.0-2.0) 01/22/18 05:04 Neut # (Auto) 6.3 K/uL (1.8-7.0) 01/22/18 05:04 Lymph # (Auto) 2.7 K/uL (1.0-4.3) 01/22/18 05:04 [place] # (Auto) 0.9 K/uL (0.0-0.8) H 01/22/18 05:04 Eos # (Auto) 0.1 K/uL (0.0-0.7) 01/22/18 05:04 Baso # (Auto) 0.0 K/uL (0.0-0.2) 01/22/18 05:04 ESR 7 mm/hr (0-30) 01/24/18 04:30 PT 11.4 Seconds (9.8-13.1) 01/21/18 17:38 INR 1.0 (0.9-1.2) 01/21/18 17:38 APTT 25.5 Seconds (25.6-37.1) L 01/21/18 17:38 Sodium 140 mmol/l (132-148) 01/25/18 04:20 Potassium 3.6 MMOL/L (3.6-5.0) 01/25/18 04:20 Chloride 98 mmol/L (98-107) 01/25/18 04:20 Carbon Dioxide 28 mmol/L (22-30) 01/25/18 04:20 Anion Gap 18 (10-20) 01/25/18 04:20 BUN 7 mg/dl (7-17) 01/25/18 04:20 Creatinine 0.5 mg/dl (0.7-1.2) L 01/25/18 04:20 Est GFR ( Amer) > 60 01/25/18 04:20 Est GFR (Non-Af Amer) > 60 01/25/18 04:20 POC Glucose (mg/dL) 95 mg/dL (65-110) 01/21/18 17:26 Random Glucose 108 mg/dL (65-105) H 01/25/18 04:20 Hemoglobin A1c 5.5 % (4.2-6.5) 01/21/18 17:39 Calcium 9.3 mg/dL (8.4-10.2) 01/25/18 04:20 Total Bilirubin 0.5 mg/dl (0.2-1.3) 01/25/18 04:20 AST 37 U/L (14-36) H D 01/25/18 04:20 ALT 63 U/L (9-52) H D 01/25/18 04:20 Alkaline Phosphatase 80 U/L (38-126) 01/25/18 04:20 Troponin I < 0.0120 ng/mL (0.00-0.120) 01/21/18 17:38 C-React Prot High Sens 2.98 mg/L (1.00-3.00) 01/24/18 04:30 Total Protein 7.2 G/DL (6.3-8.2) 01/25/18 04:20 Albumin 4.0 g/dL (3.5-5.0) 01/25/18 04:20 Globulin 3.2 gm/dL (2.2-3.9) 01/25/18 04:20 Albumin/Globulin Ratio 1.2 (1.0-2.1) 01/25/18 04:20 Triglycerides 55 mg/DL (0-149) 01/21/18 17:38 Cholesterol 168 mg/dL (0-199) 01/21/18 17:38 LDL Cholesterol Direct 75 mg/dL (0-129) 01/21/18 17:38 HDL Cholesterol 68 MG/DL (30-70) 01/21/18 17:38 Vitamin B12 643 pg/mL (239-931) 01/22/18 06:49 25-OH Vitamin D Total 31.3 NG/ML (30.0-100.0) 01/23/18 07:52 TSH 3rd Generation 1.75 mIU/ML (0.46-4.68) 01/22/18 06:49 Blood Type O POSITIVE 01/21/18 17:00 Antibody Screen Negative 01/21/18 17:00 BBK History Checked No verified bt 01/21/18 17:00 - Hospital Course Hospital Course: 57 yo , f, PMhx/o Breast Cancer, Bipolar, self medicating misusing and abusing Psychotropic drugs presenting with dysarthria and confusion , admitted for CVA unspecified, s/p TPA treatment . CT head no intracranial bleeding. MRI brain patient does not cooperate with exam.CTA head/neck no evidence of vascular obstruction. Echo normal. Neuro consult appreciated. Psyq consult appreciated. Psyq meds adjusted. Cleared to be discharged to Acute rehab. Patient seen and examined bedside with Dr Mireles. Patient AAO x 3. Noted b/l arm involuntary tremor Denies chest pain, SOB, abd pain, no overnight events. Medically cleared to be discharged. Diagnosis on Discharged 1) CVA unspecified -resolved 2) Bipolar disorder -chronic 3) Hx/o Breast ca -chronic Discharge Exam - Head Exam Head Exam: NORMAL INSPECTION - Eye Exam Eye Exam: Normal appearance - ENT Exam ENT Exam: Mucous Membranes Moist - Respiratory Exam Respiratory Exam: Clear to PA & Lateral. absent: Wheezes, Stridor - Cardiovascular Exam Cardiovascular Exam: REGULAR RHYTHM, +S1, +S2 - GI/Abdominal Exam GI & Abdominal Exam: Normal Bowel Sounds, Soft. absent: Tenderness - Extremities Exam Additional comments: b/l arms involuntary tremor - Neurological Exam Neurological exam: Alert - Psychiatric Exam Psychiatric exam: Normal Affect - Skin Skin Exam: Intact Discharge Plan - Follow Up Plan Condition: STABLE Disposition: REHAB FACILITY/REHAB UNIT
[2018-01-25 16:17] VITALS: BP 105/64; PULSE 76; RESP 17; TEMP 98.6; O2SAT 98
== END 2018-01-25 16:15 | DRG 880 ==
LOC: H.ER 16:41 → H.ERHOLD 19:15 → H.ICU/CCU 21:47 → H.TEL 01-23 17:34
PROVIDERS: ADMIT Internal Medicine; ATTEND Internal Medicine
PROC: 3E03317 Introduction of Other Thrombolytic into Peripheral Vein, Percutaneous Approach (ICD-10-PCS; principal; 2018-01-21)
PROC: F07Z9FZ Gait Training/Functional Ambulation Treatment using Assistive, Adaptive, Supportive or Protective Equipment (ICD-10-PCS; 2018-01-22)
PROC: F06Z3MZ Aphasia Treatment using Augmentative / Alternative Communication Equipment (ICD-10-PCS; 2018-01-22)
PROC: 3E0234Z Introduction of Serum, Toxoid and Vaccine into Muscle, Percutaneous Approach (ICD-10-PCS; 2018-01-23)
DX: I63.9 Cerebral infarction, unspecified (principal); F13.10 Sedative, hypnotic or anxiolytic abuse, uncomplicated; I69.320 Aphasia following cerebral infarction; F31.9 Bipolar disorder, unspecified; F19.10 Other psychoactive substance abuse, uncomplicated; D72.828 Other elevated white blood cell count; H53.2 Diplopia; I10 Essential (primary) hypertension; F41.9 Anxiety disorder, unspecified; F17.210 Nicotine dependence, cigarettes, uncomplicated; Z85.3 Personal history of malignant neoplasm of breast; Z92.21 Personal history of antineoplastic chemotherapy; Z23 Encounter for immunization; Z92.3 Personal history of irradiation

== ENCOUNTER 2018-04-13 15:43 | Inpatient (IN) | payer OTHER ==
[2018-04-13 15:43] VITALS: BMI 21.1
[2018-04-13 17:39] LABS: BASO % 0.1 % (0.0-2.0); EOS % 0.1 % (0.0-4.0); HEMOGLOBIN 12.2 g/dL (12.0-16.0); LYMPH # 0.8 K/uL (1.0-4.3); LYMPH % 9.6 % (20.0-40.0); MEAN CELL VOLUME 99.1 fl (81.0-99.0); MEAN CORPUSCULAR HEMOGLOBIN 33.3 pg (27.0-31.0); MEAN CORPUSCULAR HGB CONC 33.6 g/dL (33.0-37.0); MEAN PLATELET VOLUME 7.8 fl (7.2-11.7); MONO # 0.5 K/uL (0.0-0.8); MONO % 5.8 % (0.0-10.0); NEUT # 7.2 K/uL (1.8-7.0); NEUT % 84.4 % (50.0-75.0); PLATELET COUNT 453 K/uL (130-400); RBC 3.68 Mil/uL (3.80-5.20); RED CELL DISTRIBUTION WIDTH 13.8 % (11.5-14.5); WHITE BLOOD COUNT 8.5 K/uL (4.8-10.8)
[2018-04-13 18:03] LABS: BLOOD UREA NITROGEN 12 mg/dl (7-17); CALCIUM 8.6 mg/dL (8.4-10.2); GFR AFRICAN-AMERICAN > 60; GFR NON-AFRICAN AMERICAN > 60
[2018-04-13 18:15] LABS: SALICYLATE < 1.0 mg/dl
--- NOTE | 2018-04-13 18:28 | ED PDOC ---
HPI: Psych/Substance Abuse Time Seen by Provider: 04/13/18 16:20 Chief Complaint (Nursing): GI Problem Chief Complaint (Provider): Withdrawal History Per: Patient History/Exam Limitations: no limitations Onset/Duration Of Symptoms: Days (x5) Current Symptoms Are (Timing): Still Present Suicide/Self Injury Attempted (Context): None Modifying Factor(s): None Additional Complaint(s): 58 y/o female with a PMHx of anxiety, bipolar disorder, and depression presents to the ED complaining of nausea, vomiting and diarrhea, onset 5 days ago. Patient states she has been seen at two hospitals since then for symptoms. Patient believes she is withdrawing from klonopin for anxiety because she decided to stop taking it at home. Since then, patient reports she has been very anxious and agitated. Denies fever, vomiting and diarrhea. PMD: Alejandro Valderrama Past Medical History Reviewed: Historical Data, Nursing Documentation, Vital Signs Vital Signs: Last Vital Signs Temp 98.1 F 04/13/18 15:55 Pulse 84 04/13/18 15:55 Resp 18 04/13/18 15:55 BP 119/52 L 04/13/18 15:55 Pulse Ox 99 04/13/18 15:55 - Medical History PMH: Anxiety, Bipolar Disorder, Depression, HTN Denies: Cardia Arrhythmia, CHF, HIV, Hypercholesterolemia, Mitral Valve Prolapse, Paranoia, Peripheral Edema, Personality Disorder, Post Traumatic Stress Disorder, Chronic Kidney Disease, Schizophrenia Other PMH: Breast Cancer - Surgical History Surgical History: No Surg Hx Denies: Appendectomy, Cholecystectomy, Coronary Stent, Pacemaker - Family History Family History: States: Unknown Family Hx - Social History Current smoker - smoking cessation education provided: Yes Alcohol: None Drugs: Denies - Home Medications Home Medications: Ambulatory Orders Medication Instructions Recorded LORazepam [Ativan] 2 mg PO BID 04/14/18 QUEtiapine [SEROquel] 400 mg PO HS 04/14/18 - Allergies Allergies/Adverse Reactions: Allergies Allergy/AdvReac Type Severity Reaction Status Date / Time No Known Allergies Allergy Verified 01/13/18 00:50 Review of Systems ROS Statement: Except As Marked, All Systems Reviewed And Found Negative Gastrointestinal: Positive for: Nausea, Vomiting, Diarrhea Psych: Positive for: Anxiety (and agitated) Physical Exam - Reviewed Nursing Documentation Reviewed: Yes Vital Signs Reviewed: Yes - Physical Exam Appears: Positive for: Non-toxic, Uncomfortable (shaking, appears anxious) Head Exam: Positive for: ATRAUMATIC, NORMOCEPHALIC Skin: Positive for: Normal Color, Warm, Dry Eye Exam: Positive for: Normal appearance, EOMI, PERRL ENT: Positive for: Normal ENT Inspection Neck: Positive for: Normal, Painless ROM Cardiovascular/Chest: Positive for: Regular Rate, Rhythm. Negative for: Murmur Respiratory: Positive for: Normal Breath Sounds. Negative for: Respiratory Distress Gastrointestinal/Abdominal: Positive for: Normal Exam, Soft. Negative for: Tenderness Back: Positive for: Normal Inspection. Negative for: L CVA Tenderness, R CVA Tenderness, Vertebral Tenderness Extremity: Positive for: Normal ROM. Negative for: Deformity Neurologic/Psych: Positive for: Alert, Oriented, Other (Patient seen very anxious, shaky and agitated). Negative for: Motor/Sensory Deficits - Laboratory Results Result Diagrams: 04/13/18 17:36 04/13/18 21:39 - ECG O2 Sat by Pulse Oximetry: 99 (RA) Pulse Ox Interpretation: Normal Medical Decision Making Medical Decision Making: Time: 1739 Plan: med withdrawal, full workup for psych/med overdose -- Acetaminophen -- Alcohol Serum -- BMP -- Urine Drug Screen -- Salicylate -- CBC with differentials -- Ativan 1 mg IVP -- Urinalysis 1844-- Spoke to Bandar at poison control who states to have a repeat Tylenol and LFTs at 9:30 PM and if tylenol level decreased- than NAC is not needed but if increased NAC is needed. and if lfts are elevated, that would be another reason to do NAc. (repeate would be at around 930 pm) pt denies taking tylenol Time: 1899 -- Patient endorsed to Dr. Najera, pending repeat labs and re-evaluation. Scribe Attestation: Documented by Dominique Vargas acting as a scribe for Dr. Kin Nam MD. Provider Scribe Attestation: All medical record entries made by the Scribe were at my direction and personally dictated by me. I have reviewed the chart and agree that the record accurately reflects my personal performance of the history, physical exam, medical decision making, and the department course for this patient. I have also personally directed, reviewed, and agree with the discharge instructions and disposition. Disposition - Clinical Impression Clinical Impression: Tylenol overdose - Patient ED Disposition Is Patient to be Admitted: Transfer of Care - Disposition Disposition: Transfer of Care Disposition Time: 19:00 Condition: FAIR Patient Signed Over To: Raul Najera
[2018-04-13 19:45] LABS: SQUAMOUS EPITHIAL 1 /hpf (0-5); URINE BILIRUBIN NEGATIVE (NEGATIVE); URINE BLOOD NEGATIVE (NEGATIVE); URINE CLARITY SLIGHTY-CLOUDY (Clear); URINE COLOR YELLOW (YELLOW); URINE GLUCOSE (UA) NEG (Normal); URINE LEUKOCYTE ESTERASE NEG Leu/uL (Negative); URINE PROTEIN NEGATIVE (NEGATIVE); URINE UROBILINOGEN 0.2-1.0 mg/dL (0.2-1.0)
[2018-04-13 19:52] LABS: BARBITURATES, UR NEGATIVE (NEGATIVE); BENZODIAZEPINES, UR NEGATIVE (NEGATIVE); OPIATES, UR POSITIVE (NEGATIVE); PHENCYCLIDINE, UR NEGATIVE (NEGATIVE)
[2018-04-13 19:56] LABS: ALB/GLOB RATIO 1.4 (1.0-2.1); ALBUMIN 4.1 g/dL (3.5-5.0)
[2018-04-13 20:08] LABS: ANISOCYTOSIS SLIGHT; BANDS 1 % (0-2); LYMPHOCYTE 4 % (20-50); MONOCYTE 4 % (0-10); NEUTROPHIL 91 % (42-75); PLATELET ESTIMATE NORMAL (NORMAL); TOTAL CELLS COUNTED 100; TOXIC GRANULATION PRESENT
--- NOTE | 2018-04-13 20:23 | ED PDOC ---
- Laboratory Results Result Diagrams: 04/13/18 17:36 04/13/18 21:39 - ECG O2 Sat by Pulse Oximetry: 99 (RA) Pulse Ox Interpretation: Normal Medical Decision Making Medical Decision Making: Time: 1899 -- Patient endorsed to me by Dr. Nam, pending lab work and crisis evaluation. 23:00 Patient has abnormal LFT's Poison control recommends NAC treatment Patient currently stable, no signs of withdrawal, normal vitals Patient states she took 4 Tylenol PM tablets and one Tylenol with codeine within the past 12 hours Will admit for NAC treatment and repeat LFTs Case discussed with Dr. Rosales ____ Scribe Attestation: Documented by Dmoinique Vargas acting as a scribe for Dr. Raul Najera MD. Provider Scribe Attestation: All medical record entries made by the Scribe were at my direction and personally dictated by me. I have reviewed the chart and agree that the record accurately reflects my personal performance of the history, physical exam, medical decision making, and the department course for this patient. I have also personally directed, reviewed, and agree with the discharge instructions and disposition. Disposition - Clinical Impression Clinical Impression: Tylenol overdose - POA Present On Arrival: None - Disposition Disposition: Admitted as In-Patient Disposition Time: 22:00 Condition: FAIR
[2018-04-13 20:44] LABS: BILIRUBIN,DIRECT 0.4 mg/ml (0.0-0.4)
[2018-04-13 22:08] LABS: ALBUMIN 3.7 g/dL (3.5-5.0)
[2018-04-13 22:09] LABS: ALB/GLOB RATIO 1.3 (1.0-2.1); BILIRUBIN,DIRECT 0.3 mg/ml (0.0-0.4)
[2018-04-13] MEDS ORDERED: ACETYLCYSTEINE IVPB ONE (22:38)
[2018-04-13] MEDS ORDERED: WATER IVPB ONE (22:38)
[2018-04-13] MEDS ORDERED: DEXTROSE 5% IVPB ONE (22:38)
[2018-04-13 23:00] LABS: BLOOD UREA NITROGEN 8 mg/dl (7-17); GFR AFRICAN-AMERICAN > 60; GFR NON-AFRICAN AMERICAN > 60
[2018-04-13 23:01] LABS: CALCIUM 8.3 mg/dL (8.4-10.2)
[2018-04-14] MEDS ORDERED: WATER IVPB ONE ×2 (00:01→05:35)
[2018-04-14] MEDS ORDERED: ACETYLCYSTEINE IVPB ONE ×2 (00:01→05:35)
[2018-04-14] MEDS ORDERED: DEXTROSE 5% IVPB ONE ×2 (00:01→05:35)
[2018-04-14] MEDS ORDERED: Dextrose 5%/Lactated Ringer's 1,000 ML IV SCH (05:45)
--- NOTE | 2018-04-14 07:33 | CARD ---
APPROVED REPORT Date of service: 04/14/2018 <Conclusion> Normal sinus rhythm Rightward axis Borderline ECG
--- NOTE | 2018-04-14 09:22 | RAD ---
Date of service: 04/13/2018 HISTORY: overdose COMPARISON: Portable chest 01/21/2018. FINDINGS: LUNGS: No active pulmonary disease. PLEURA: No significant pleural effusion identified, no pneumothorax apparent. CARDIOVASCULAR: Normal. OSSEOUS STRUCTURES: No significant abnormalities. VISUALIZED UPPER ABDOMEN: Normal. OTHER FINDINGS: Incidental anterior cervical spinal fusion hardware reiterated. Multiple dental implants are also identified at the mandible IMPRESSION: No interval acute cardiopulmonary disease appreciated.
--- NOTE | 2018-04-14 12:44 | CP.PCM.CON ---
History of Present Illness - History of Present Illness History of Present Illness: pt is 58ys old female with previous psychiatric diagnosis of depression/ bipolar disorder/ benzodizepine and psychotropic abuse pt has history of two inpatient psychiatric hospializations , last was 01/13/18 pt has been admitted due to abuse of her psychotropic medications, taking more than prescribed of seroquel sonata and neurontin pt presented to ER after she has been abusing and taking more than prescribed of her psychotropic medications including lorazepam and seroquel, this resulted in her psychiatrist refusing to prescribe her medications after he came to know she is abusing them again when questioned about abusing her medications, pt was tearful stating that she wanted to punish herself pt reported that she has been depressed as she has lost her sister 18months ago and also for not having a close relation with her son, reported increased anxiety with frequent panic attacks, poor sleep, poor appetite, pt has indicated being frustrated with her current condition, reported poor self control , denied active suicidal ideation n the hospital yet unable to contract for safety if she would be discharged It is to be noted that pt has overdosed on Tylenol , currently is being treated for elevated acetaminophen level and liver functions Past Patient History - Infectious Disease Hx of Infectious Diseases: None - Past Medical History & Family History Past Medical History?: Yes - Past Social History Smoking Status: Former Smoker - CARDIAC Hx Cardiac Disorders: No - PULMONARY Hx Tuberculosis: No - NEUROLOGICAL HX Cerebrovascular Accident: No Hx Seizures: No - HEENT Hx HEENT Problems: No - RENAL Hx Chronic Kidney Disease: No - ENDOCRINE/METABOLIC Hx Endocrine Disorders: No - HEMATOLOGICAL/ONCOLOGICAL Hx Cancer: Yes (HX OF BREAST CANCER) Hx Human Immunodeficiency Virus (HIV): No - INTEGUMENTARY Hx Dermatological Problems: No - MUSCULOSKELETAL/RHEUMATOLOGICAL Hx Musculoskeletal Disorders: Yes Hx Falls: Yes Other/Comment: Spinal Fusion - GASTROINTESTINAL Hx Gastrointestinal Disorders: No - GENITOURINARY/GYNECOLOGICAL Hx Sexually Transmitted Disorders: No - PSYCHIATRIC Hx Anxiety: Yes Hx Bipolar Disorder: Yes Hx Depression: Yes Hx Paranoia: No Hx Post Traumatic Stress Disorder: No Hx Schizophrenia: No Hx Substance Use: Yes (lorazepam, marijuana) - SURGICAL HISTORY Hx Appendectomy: No Hx Cholecystectomy: No Hx Coronary Stent: No - ANESTHESIA Hx Anesthesia: Yes Hx Anesthesia Reactions: No Hx Malignant Hyperthermia: No Meds Allergies/Adverse Reactions: Allergies Allergy/AdvReac Type Severity Reaction Status Date / Time No Known Allergies Allergy Verified 01/13/18 00:50 - Medications Medications: Current Medications Acetylcysteine 6,120 mg/ (Dextrose) 1,030.6 mls @ 62.5 mls/hr IVPB ONCE ONE Stop: 04/14/18 22:04 Last Admin: 04/14/18 06:11 Dose: 62.5 mls/hr Dextrose/Lactated Ringer's (Dextrose 5%/Lactated Ringer's) 1,000 mls @ 80 mls/ hr IV .[id number] [facility] Stop: 04/15/18 05:46 Ondansetron HCl (Zofran Inj) 4 mg IVP Q6 PRN PRN Reason: Nausea/Vomiting Last Admin: 04/14/18 11:47 Dose: 4 mg Quetiapine Fumarate (Seroquel) 400 mg PO HS [facility] Physical Exam - Psychiatric Exam Additional comments: pt seen in bed depressed mood , tearful and extremely anxious affect, thought form circumstantial, denied perceptual disturbances, denied active suicidal intent denied homicidal ideation, alert awake oriented to person and place Results - Vital Signs Recent Vital Signs: Last Vital Signs Temp 98.3 F 04/14/18 08:00 Pulse 78 04/14/18 08:00 Resp 20 04/14/18 08:00 BP 131/66 04/14/18 08:00 Pulse Ox 97 04/14/18 08:00 - Labs Result Diagrams: 04/13/18 17:36 04/13/18 21:39 Labs: Laboratory Results - last 24 hr 04/13/18 04/13/18 04/13/18 17:36 17:36 17:36 WBC 8.5 RBC 3.68 L Hgb 12.2 Hct 36.4 MCV 99.1 H MCH 33.3 H MCHC 33.6 RDW 13.8 Plt Count 453 H D MPV 7.8 Neut % (Auto) 84.4 H Lymph % (Auto) 9.6 L Thayer % (Auto) 5.8 Eos % (Auto) 0.1 Baso % (Auto) 0.1 Neut # (Auto) 7.2 H Lymph # (Auto) 0.8 L Thayer # (Auto) 0.5 Eos # (Auto) 0.0 Baso # (Auto) 0.0 Neutrophils % (Manual) 91 H Band Neutrophils % 1 Lymphocytes % (Manual) 4 L Monocytes % (Manual) 4 Toxic Granulation Present Platelet Estimate Normal Anisocytosis (manual) Slight Sodium 133 Potassium 4.0 Chloride 98 Carbon Dioxide 25 Anion Gap 14 BUN 12 Creatinine 0.5 L Est GFR ( Amer) > 60 Est GFR (Non-Af Amer) > 60 Random Glucose 120 H Calcium 8.6 Total Bilirubin Direct Bilirubin AST ALT Alkaline Phosphatase Total Protein Albumin Globulin Albumin/Globulin Ratio Urine Color Urine Clarity Urine pH Ur Specific [place] Urine Protein Urine Glucose (UA) Urine Ketones Urine Blood Urine Nitrate Urine Bilirubin Urine Urobilinogen Ur Leukocyte Esterase Urine RBC (Auto) Urine Microscopic WBC Ur Squamous Epith Cells Salicylates < 1.0 Urine Opiates Screen Urine Methadone Screen Acetaminophen 58.0 H Ur Barbiturates Screen Ur Phencyclidine Scrn Ur Amphetamines Screen U Benzodiazepines Scrn U Oth Cocaine Metabols U Cannabinoids Screen Alcohol, Quantitative < 10 04/13/18 04/13/18 04/13/18 19:22 19:22 19:43 WBC RBC Hgb Hct MCV MCH MCHC RDW Plt Count MPV Neut % (Auto) Lymph % (Auto) Thayer % (Auto) Eos % (Auto) Baso % (Auto) Neut # (Auto) Lymph # (Auto) Thayer # (Auto) Eos # (Auto) Baso # (Auto) Neutrophils % (Manual) Band Neutrophils % Lymphocytes % (Manual) Monocytes % (Manual) Toxic Granulation Platelet Estimate Anisocytosis (manual) Sodium Potassium Chloride Carbon Dioxide Anion Gap BUN Creatinine Est GFR ( Amer) Est GFR (Non-Af Amer) Random Glucose Calcium Total Bilirubin 0.5 Direct Bilirubin 0.4 AST 142 H D ALT 156 H D Alkaline Phosphatase 99 Total Protein 7.1 Albumin 4.1 Globulin 3.0 Albumin/Globulin Ratio 1.4 Urine Color Yellow Urine Clarity Slighty-cloudy Urine pH 6.0 Ur Specific [place] 1.021 Urine Protein Negative Urine Glucose (UA) Neg Urine Ketones Negative Urine Blood Negative Urine Nitrate Negative Urine Bilirubin Negative Urine Urobilinogen 0.2-1.0 Ur Leukocyte Esterase Neg Urine RBC (Auto) 2 Urine Microscopic WBC 1 Ur Squamous Epith Cells 1 Salicylates Urine Opiates Screen Positive H Urine Methadone Screen Negative Acetaminophen Ur Barbiturates Screen Negative Ur Phencyclidine Scrn Negative Ur Amphetamines Screen Negative U Benzodiazepines Scrn Negative U Oth Cocaine Metabols Negative U Cannabinoids Screen Negative Alcohol, Quantitative 04/13/18 04/13/18 04/13/18 21:39 21:39 21:39 WBC RBC Hgb Hct MCV MCH MCHC RDW Plt Count MPV Neut % (Auto) Lymph % (Auto) Thayer % (Auto) Eos % (Auto) Baso % (Auto) Neut # (Auto) Lymph # (Auto) Thayer # (Auto) Eos # (Auto) Baso # (Auto) Neutrophils % (Manual) Band Neutrophils % Lymphocytes % (Manual) Monocytes % (Manual) Toxic Granulation Platelet Estimate Anisocytosis (manual) Sodium 136 Potassium 4.3 Chloride 103 Carbon Dioxide 23 Anion Gap 14 BUN 8 Creatinine 0.5 L Est GFR ( Amer) > 60 Est GFR (Non-Af Amer) > 60 Random Glucose 94 Calcium 8.3 L Total Bilirubin 0.5 Direct Bilirubin 0.3 AST 94 H D ALT 137 H Alkaline Phosphatase 89 Total Protein 6.5 Albumin 3.7 Globulin 2.8 Albumin/Globulin Ratio 1.3 Urine Color Urine Clarity Urine pH Ur Specific [place] Urine Protein Urine Glucose (UA) Urine Ketones Urine Blood Urine Nitrate Urine Bilirubin Urine Urobilinogen Ur Leukocyte Esterase Urine RBC (Auto) Urine Microscopic WBC Ur Squamous Epith Cells Salicylates Urine Opiates Screen Urine Methadone Screen Acetaminophen 22.0 Ur Barbiturates Screen Ur Phencyclidine Scrn Ur Amphetamines Screen U Benzodiazepines Scrn U Oth Cocaine Metabols U Cannabinoids Screen Alcohol, Quantitative Assessment & Plan - Assessment and Plan (Free Text) Assessment: bipolar disorder depressed severe without psychotic features generalized anxiety disorder panic disorder benzodiazepine abuse Plan: pt at current mental status danger to self , needs admission to psychiatry for stabilization due to suicide risk pt agredd to be admitted to geriatric psychiatry unit upon medical clearance for stabilization if pt refuses to sign for voluntary admission , it is my recommendation that she would be screened BY [facility] for involuntary admission I recommend to decrease seroquel to 300mg qhs, discontinue ativan gradually and start neurontin 100mg tid
[2018-04-14] MEDS: Dextrose 5%/Lactated Ringer's 500 ML IV SCH ×2 (16:50→20:30)
[2018-04-14 18:44] LABS: INR 1.1; PROTHROMBIN TIME 12.1 Seconds (9.8-13.1)
[2018-04-14 18:45] LABS: ALB/GLOB RATIO 1.3 (1.0-2.1); ALBUMIN 4.2 g/dL (3.5-5.0); BILIRUBIN,DIRECT 0.4 mg/ml (0.0-0.4)
[2018-04-14 18:47] LABS: PARTIAL THROMBOPLASTIN TIME 28.3 Seconds (25.6-37.1)
--- NOTE | 2018-04-14 23:31 | CP.PCM.HP ---
History of Present Illness - History of Present Illness History of Present Illness: This is a 58 y/o female admitted for Tylenol overdose. Claims that she took only few tablets for headaches and body pains. She apparently abruptly stopped taking her Clonazepam and since then has been having uncontrolled tremors and body pains. Noted elevated liver enzymes on admission. Present on Admission - Present on Admission Any Indicators Present on Admission: No History of DVT/PE: No History of Uncontrolled Diabetes: No Urinary Catheter: No Decubitus Ulcer Present: No Review of Systems - Psychiatric Psychiatric: Anxiety, Depression, Mood Swings Past Patient History - Infectious Disease Hx of Infectious Diseases: None - Past Medical History & Family History Past Medical History?: Yes - Past Social History Alcohol: None Drugs: Denies - CARDIAC Hx Cardia Arrhythmia: No Hx Congestive Heart Failure: No Hx Hypercholesterolemia: No Hx Hypertension: Yes Hx Mitral Valve Prolapse: No Hx Pacemaker: No Hx Peripheral Edema: No - PULMONARY Hx Tuberculosis: No - NEUROLOGICAL HX Cerebrovascular Accident: No Hx Seizures: No - HEENT Hx HEENT Problems: No - RENAL Hx Chronic Kidney Disease: No - ENDOCRINE/METABOLIC Hx Endocrine Disorders: No - HEMATOLOGICAL/ONCOLOGICAL Hx Human Immunodeficiency Virus (HIV): No - INTEGUMENTARY Hx Dermatological Problems: No - MUSCULOSKELETAL/RHEUMATOLOGICAL Hx Musculoskeletal Disorders: Yes Hx Falls: Yes Other/Comment: Spinal Fusion - GASTROINTESTINAL Hx Gastrointestinal Disorders: No - GENITOURINARY/GYNECOLOGICAL Hx Sexually Transmitted Disorders: No - PSYCHIATRIC Hx Anxiety: Yes Hx Bipolar Disorder: Yes Hx Depression: Yes Hx Paranoia: No Hx Post Traumatic Stress Disorder: No Hx Schizophrenia: No - SURGICAL HISTORY Hx Appendectomy: No Hx Cholecystectomy: No Hx Coronary Stent: No - ANESTHESIA Hx Anesthesia: Yes Hx Anesthesia Reactions: No Hx Malignant Hyperthermia: No Meds Home Medications: Home Medication List Medication Instructions Recorded Confirmed Type Gabapentin [Neurontin] 100 mg PO TID cap 04/18/18 Rx Ibuprofen [Motrin Tab] 800 mg PO Q12 PRN tab 04/18/18 Rx LORazepam [Ativan] 1 mg PO BID PRN tab 04/18/18 Rx Nicotine 21 mg/24 hr [Nicoderm Cq] 1 patch TD DAILY patch 04/18/18 Rx QUEtiapine [SEROquel] 300 mg PO HS #0 tab 04/18/18 Rx Allergies/Adverse Reactions: Allergies Allergy/AdvReac Type Severity Reaction Status Date / Time codeine AdvReac NAUSEA Verified 04/18/18 14:11 Physical Exam - Head Exam Head Exam: NORMAL INSPECTION - Eye Exam Eye Exam: Normal appearance - Respiratory Exam Respiratory Exam: Clear to Auscultation Bilateral - Cardiovascular Exam Cardiovascular Exam: REGULAR RHYTHM - GI/Abdominal Exam GI & Abdominal Exam: Normal Bowel Sounds - Neurological Exam Neurological exam: CN II-XII Intact, Oriented x3 - Psychiatric Exam Psychiatric exam: Agitated, Anxious, Depressed Results - Vital Signs Recent Vital Signs: Last Vital Signs Temp 98.2 F 04/14/18 20:15 Pulse 70 04/14/18 21:00 Resp 17 04/14/18 20:15 BP 121/73 04/14/18 20:15 Pulse Ox 98 04/14/18 20:15 - Labs Result Diagrams: 04/13/18 17:36 04/16/18 05:25 Labs: Laboratory Results - last 24 hr 04/14/18 04/14/18 04/14/18 18:04 18:04 18:04 PT 12.1 INR 1.1 APTT 28.3 Total Bilirubin 0.5 Direct Bilirubin 0.4 AST 50 H D ALT 124 H Alkaline Phosphatase 89 Total Protein 7.4 Albumin 4.2 Globulin 3.2 Albumin/Globulin Ratio 1.3 Acetaminophen < 10.0 L Assessment & Plan (1) Tylenol overdose Status: Acute (2) Bipolar 1 disorder Status: Acute (3) Mood disorder Status: Acute Priority: High - Assessment and Plan (Free Text) Plan: hydrate continue monitor labs lytes liver enzymes telemetry daily ekg cmp
[2018-04-15] MEDS: Dextrose 5%/Lactated Ringer's 500 ML IV SCH (02:30)
[2018-04-15 07:19] LABS: ALB/GLOB RATIO 1.3 (1.0-2.1); ALBUMIN 3.4 g/dL (3.5-5.0); ALT/SGPT 94 U/L (9-52); AST/SGOT 41 U/L (14-36); BLOOD UREA NITROGEN 3 mg/dl (7-17); CALCIUM 8.7 mg/dL (8.4-10.2); GFR AFRICAN-AMERICAN > 60; GFR NON-AFRICAN AMERICAN > 60
--- NOTE | 2018-04-15 17:04 | CP.PCM.PN ---
<Maranda Cortez - Last Filed: 04/15/18 17:02> Subjective - Date & Time of Evaluation Date of Evaluation: 04/15/18 Time of Evaluation: 11:10 - Subjective Subjective: Pt seen at bedside this am; was laying in bed in no distress but appeared anxious. She had several episodes of dropped beats on tele monitoring; but pt is asymptomatic. Objective - Vital Signs/Intake and Output Vital Signs (last 24 hours): Temp Pulse Resp BP Pulse Ox 99.1 F 87 20 125/76 95 04/15/18 16:05 04/15/18 16:05 04/15/18 16:05 04/15/18 16:05 04/15/18 16:05 Intake and Output: 04/15/18 04/15/18 06:59 18:59 Intake Total 1750 Balance 1750 - Medications Medications: Current Medications Gabapentin (Neurontin) 100 mg PO TID [facility] Last Admin: 04/15/18 16:54 Dose: 100 mg Lorazepam (Ativan) 0.5 mg PO BID PRN PRN Reason: Anxiety Last Admin: 04/15/18 08:57 Dose: 0.5 mg Nicotine (Nicoderm Cq) 1 patch TD DAILY [facility] Last Admin: 04/15/18 08:57 Dose: 1 patch Ondansetron HCl (Zofran Inj) 4 mg IVP Q6 PRN PRN Reason: Nausea/Vomiting Last Admin: 04/15/18 13:40 Dose: 4 mg Quetiapine Fumarate (Seroquel) 300 mg PO HS [facility] - Labs Labs: 04/13/18 17:36 04/15/18 05:40 PT 12.1 Seconds (9.8-13.1) 04/14/18 18:04 INR 1.1 04/14/18 18:04 APTT 28.3 Seconds (25.6-37.1) 04/14/18 18:04 - Constitutional Appears: No Acute Distress - Respiratory Exam Respiratory Exam: NORMAL BREATHING PATTERN - Cardiovascular Exam Cardiovascular Exam: REGULAR RHYTHM - GI/Abdominal Exam GI & Abdominal Exam: Soft - Extremities Exam Extremities Exam: Normal Inspection - Neurological Exam Neurological Exam: Alert, Awake - Psychiatric Exam Psychiatric exam: Depressed - Skin Skin Exam: Normal Color Assessment and Plan (1) Dropped heart beats Status: Acute (2) Tylenol overdose Status: Acute (3) Mood disorder Status: Acute - Assessment and Plan (Free Text) Plan: - cardiology consult for dropped beats/clearance to go to psych - LFTs trending down, tylenol level wnl - psychiatry consult appreciated; change seroquel to 300 mg PO HS and start neurontin 100 mg - pt agreeable to voluntary psych admission after medically stable - continue with rest of plan as ordered <Robert Rosales - Last Filed: 04/18/18 23:06> Objective - Vital Signs/Intake and Output Vital Signs (last 24 hours): Temp Pulse Resp BP Pulse Ox 98 F 90 20 125/75 97 04/18/18 17:00 04/18/18 17:00 04/18/18 17:00 04/18/18 17:00 04/18/18 17:00 - Labs Labs: 04/13/18 17:36 04/16/18 05:25 PT 12.1 Seconds (9.8-13.1) 04/14/18 18:04 INR 1.1 04/14/18 18:04 APTT 28.3 Seconds (25.6-37.1) 04/14/18 18:04 Assessment and Plan (1) Tylenol overdose Status: Acute (2) Bipolar 1 disorder Status: Acute (3) Mood disorder Status: Acute - Assessment and Plan (Free Text) Plan: I was present during evaluation and discussed with Dr Vasile alicia plans of care and tx Robert Rosales M.D.
--- NOTE | 2018-04-15 17:11 | CARD ---
APPROVED REPORT Date of service: 04/15/2018 EKG Measurement Heart [id number] <Conclusion> Normal sinus rhythm Rightward axis Borderline ECG
[2018-04-15] MEDS: QUEtiapine 300 MG TABLET PO SCH (21:30)
[2018-04-16 06:55] LABS: ALB/GLOB RATIO 1.3 (1.0-2.1); ALBUMIN 3.6 g/dL (3.5-5.0); ALT/SGPT 81 U/L (9-52); AST/SGOT 31 U/L (14-36); BLOOD UREA NITROGEN 8 mg/dl (7-17); CALCIUM 9.2 mg/dL (8.4-10.2); GFR AFRICAN-AMERICAN > 60; GFR NON-AFRICAN AMERICAN > 60
--- NOTE | 2018-04-16 19:50 | CP.PCM.CON ---
History of Present Illness - History of Present Illness History of Present Illness: Consulation for evaluation of skipped premature beats HPI: Review of Systems - Review of Systems Systems not reviewed;Unavailable: Acuity of Condition - Constitutional Constitutional: As Per HPI - EENT Eyes: As Per HPI Ears: As Per HPI Nose/Mouth/Throat: As Per HPI - Breasts Breasts: As Per HPI - Cardiovascular Cardiovascular: As Per HPI - Respiratory Respiratory: As Per HPI - Gastrointestinal Gastrointestinal: As Per HPI - Genitourinary Genitourinary: As Per HPI - Reproductive: Female Reproductive:Female: As Per HPI - Menstruation Menstruation: As Per HPI - Musculoskeletal Musculoskeletal: As Per HPI - Integumentary Integumentary: As Per HPI - Neurological Neurological: As Per HPI - Psychiatric Psychiatric: As Per HPI - Endocrine Endocrine: As Per HPI - Hematologic/Lymphatic Hematologic: As Per HPI Past Patient History - Infectious Disease Hx of Infectious Diseases: None - Past Medical History & Family History Past Medical History?: Yes - Past Social History Alcohol: None Drugs: Denies - CARDIAC Hx Cardia Arrhythmia: No Hx Congestive Heart Failure: No Hx Hypercholesterolemia: No Hx Hypertension: Yes Hx Mitral Valve Prolapse: No Hx Pacemaker: No Hx Peripheral Edema: No - PULMONARY Hx Tuberculosis: No - NEUROLOGICAL HX Cerebrovascular Accident: No Hx Seizures: No - HEENT Hx HEENT Problems: No - RENAL Hx Chronic Kidney Disease: No - ENDOCRINE/METABOLIC Hx Endocrine Disorders: No - HEMATOLOGICAL/ONCOLOGICAL Hx Human Immunodeficiency Virus (HIV): No - INTEGUMENTARY Hx Dermatological Problems: No - MUSCULOSKELETAL/RHEUMATOLOGICAL Hx Musculoskeletal Disorders: Yes Hx Falls: Yes Other/Comment: Spinal Fusion - GASTROINTESTINAL Hx Gastrointestinal Disorders: No - GENITOURINARY/GYNECOLOGICAL Hx Sexually Transmitted Disorders: No - PSYCHIATRIC Hx Anxiety: Yes Hx Bipolar Disorder: Yes Hx Depression: Yes Hx Paranoia: No Hx Post Traumatic Stress Disorder: No Hx Schizophrenia: No - SURGICAL HISTORY Hx Appendectomy: No Hx Cholecystectomy: No Hx Coronary Stent: No - ANESTHESIA Hx Anesthesia: Yes Hx Anesthesia Reactions: No Hx Malignant Hyperthermia: No Meds Allergies/Adverse Reactions: Allergies Allergy/AdvReac Type Severity Reaction Status Date / Time No Known Allergies Allergy Verified 01/13/18 00:50 - Medications Medications: Current Medications Gabapentin (Neurontin) 100 mg PO TID [facility] Last Admin: 04/16/18 16:10 Dose: 100 mg Ibuprofen (Motrin Tab) 800 mg PO Q12 PRN PRN Reason: Pain, moderate (4-7) Lorazepam (Ativan) 1 mg PO BID PRN PRN Reason: Agitation Last Admin: 04/16/18 16:10 Dose: 1 mg Nicotine (Nicoderm Cq) 1 patch TD DAILY [facility] Last Admin: 04/16/18 10:25 Dose: 1 patch Ondansetron HCl (Zofran Inj) 4 mg IVP Q6 PRN PRN Reason: Nausea/Vomiting Last Admin: 04/16/18 10:33 Dose: 4 mg Quetiapine Fumarate (Seroquel) 300 mg PO HS [facility] Last Admin: 04/15/18 21:30 Dose: 300 mg Physical Exam - Constitutional Appears: Well - Head Exam Head Exam: ATRAUMATIC, NORMAL INSPECTION, NORMOCEPHALIC - Eye Exam Eye Exam: EOMI, Normal appearance, PERRL Pupil Exam: NORMAL ACCOMODATION, PERRL - ENT Exam ENT Exam: Mucous Membranes Moist, Normal Exam - Neck Exam Neck exam: Positive for: Normal Inspection - Respiratory Exam Respiratory Exam: Clear to Auscultation Bilateral, NORMAL BREATHING PATTERN - Cardiovascular Exam Cardiovascular Exam: REGULAR RHYTHM - GI/Abdominal Exam GI & Abdominal Exam: Normal Bowel Sounds, Soft. absent: Tenderness - Extremities Exam Extremities exam: Positive for: normal inspection - Back Exam Back exam: NORMAL INSPECTION - Neurological Exam Neurological exam: Alert, CN II-XII Intact, Normal Gait, Oriented x3, Reflexes Normal - Psychiatric Exam Psychiatric exam: Normal Affect, Normal Mood - Skin Skin Exam: Dry, Intact, Normal Color, Warm Results - Vital Signs Recent Vital Signs: Last Vital Signs Temp 98.2 F 04/16/18 16:15 Pulse 83 04/16/18 16:15 Resp 20 04/16/18 16:15 BP 116/70 04/16/18 16:15 Pulse Ox 96 04/16/18 16:15 - Labs Result Diagrams: 04/13/18 17:36 04/16/18 05:25 Labs: Laboratory Results - last 24 hr 04/16/18 05:25 Sodium 136 Potassium 4.3 Chloride 98 Carbon Dioxide 28 Anion Gap 14 BUN 8 Creatinine 0.5 L Est GFR ( Amer) > 60 Est GFR (Non-Af Amer) > 60 Random Glucose 100 Calcium 9.2 Total Bilirubin 0.4 AST 31 ALT 81 H Alkaline Phosphatase 72 Total Protein 6.4 Albumin 3.6 Globulin 2.7 Albumin/Globulin Ratio 1.3 Assessment & Plan (1) Dropped heart beats Assessment and Plan: echo Status: Acute (2) Tylenol overdose Status: Acute (3) Bipolar 1 disorder Status: Acute (4) Mood disorder Status: Acute Priority: High (5) Schizophrenia Status: Acute
[2018-04-16] MEDS: QUEtiapine 300 MG TABLET PO SCH (21:31)
[2018-04-17] MEDS: QUEtiapine 300 MG TABLET PO SCH ×2 (21:20→21:32)
--- NOTE | 2018-04-18 00:13 | CP.PCM.PN ---
Subjective - Date & Time of Evaluation Date of Evaluation: 04/16/18 Time of Evaluation: 14:00 - Subjective Subjective: patient feels very jittery. Claims that she had been having increasing anxiety since she abruptly stopped taking her Clonazepam. Noted an episode of skipped beat yesterday. Denies any chest pain or SOB. Objective - Vital Signs/Intake and Output Vital Signs (last 24 hours): Temp Pulse Resp BP Pulse Ox 98.1 F 78 20 126/72 96 04/17/18 20:11 04/17/18 21:00 04/17/18 20:11 04/17/18 20:11 04/17/18 20:11 - Medications Medications: Current Medications Gabapentin (Neurontin) 100 mg PO TID [facility] Last Admin: 04/17/18 17:38 Dose: 100 mg Ibuprofen (Motrin Tab) 800 mg PO Q12 PRN PRN Reason: Pain, moderate (4-7) Last Admin: 04/17/18 14:58 Dose: 800 mg Lorazepam (Ativan) 1 mg PO BID PRN PRN Reason: Agitation Last Admin: 04/17/18 09:10 Dose: 1 mg Nicotine (Nicoderm Cq) 1 patch TD DAILY [facility] Last Admin: 04/17/18 09:05 Dose: 1 patch Ondansetron HCl (Zofran Inj) 4 mg IVP Q6 PRN PRN Reason: Nausea/Vomiting Last Admin: 04/17/18 14:57 Dose: 4 mg Quetiapine Fumarate (Seroquel) 300 mg PO HS [facility] Last Admin: 04/17/18 21:32 Dose: 300 mg - Labs Labs: 04/13/18 17:36 04/16/18 05:25 PT 12.1 Seconds (9.8-13.1) 04/14/18 18:04 INR 1.1 04/14/18 18:04 APTT 28.3 Seconds (25.6-37.1) 04/14/18 18:04
--- NOTE | 2018-04-18 00:14 | CP.PCM.PN ---
Subjective - Date & Time of Evaluation Date of Evaluation: 04/17/18 Time of Evaluation: 12:00 - Subjective Subjective: Patient claims that she is more calm today. Seen by cardiology Has no chest pain or SOB Afebrile. Objective - Vital Signs/Intake and Output Vital Signs (last 24 hours): Temp Pulse Resp BP Pulse Ox 98.1 F 78 20 126/72 96 04/17/18 20:11 04/17/18 21:00 04/17/18 20:11 04/17/18 20:11 04/17/18 20:11 - Medications Medications: Current Medications Gabapentin (Neurontin) 100 mg PO TID [facility] Last Admin: 04/17/18 17:38 Dose: 100 mg Ibuprofen (Motrin Tab) 800 mg PO Q12 PRN PRN Reason: Pain, moderate (4-7) Last Admin: 04/17/18 14:58 Dose: 800 mg Lorazepam (Ativan) 1 mg PO BID PRN PRN Reason: Agitation Last Admin: 04/17/18 09:10 Dose: 1 mg Nicotine (Nicoderm Cq) 1 patch TD DAILY [facility] Last Admin: 04/17/18 09:05 Dose: 1 patch Ondansetron HCl (Zofran Inj) 4 mg IVP Q6 PRN PRN Reason: Nausea/Vomiting Last Admin: 04/17/18 14:57 Dose: 4 mg Quetiapine Fumarate (Seroquel) 300 mg PO HS [facility] Last Admin: 04/17/18 21:32 Dose: 300 mg - Labs Labs: 04/13/18 17:36 04/16/18 05:25 PT 12.1 Seconds (9.8-13.1) 04/14/18 18:04 INR 1.1 04/14/18 18:04 APTT 28.3 Seconds (25.6-37.1) 04/14/18 18:04 - Head Exam Head Exam: NORMAL INSPECTION - Eye Exam Eye Exam: Normal appearance - ENT Exam ENT Exam: Mucous Membranes Moist - Respiratory Exam Respiratory Exam: Clear to Ausculation Bilateral - Cardiovascular Exam Cardiovascular Exam: REGULAR RHYTHM - GI/Abdominal Exam GI & Abdominal Exam: Normal Bowel Sounds - Neurological Exam Neurological Exam: Awake, Oriented x3 - Psychiatric Exam Psychiatric exam: Anxious Assessment and Plan (1) Bipolar 1 disorder Status: Acute (2) Dropped heart beats Status: Acute (3) Mood disorder Status: Acute (4) Tylenol overdose Status: Acute - Assessment and Plan (Free Text) Plan: Cont meds Cont tx arrange for Psych admission cont tx Cont meds
--- NOTE | 2018-04-18 14:24 | CP.PCM.PN ---
Objective - Vital Signs/Intake and Output Vital Signs (last 24 hours): Temp Pulse Resp BP Pulse Ox 98.6 F 78 18 101/67 98 04/18/18 12:53 04/18/18 12:53 04/18/18 12:53 04/18/18 12:53 04/18/18 12:53 - Medications Medications: Current Medications Gabapentin (Neurontin) 100 mg PO TID [facility] Last Admin: 04/18/18 14:18 Dose: 100 mg Ibuprofen (Motrin Tab) 800 mg PO Q12 PRN PRN Reason: Pain, moderate (4-7) Last Admin: 04/18/18 08:38 Dose: 800 mg Lorazepam (Ativan) 1 mg PO BID PRN PRN Reason: Agitation Last Admin: 04/18/18 08:36 Dose: 1 mg Nicotine (Nicoderm Cq) 1 patch TD DAILY [facility] Last Admin: 04/18/18 08:37 Dose: 1 patch Ondansetron HCl (Zofran Inj) 4 mg IVP Q6 PRN PRN Reason: Nausea/Vomiting Last Admin: 04/18/18 11:00 Dose: 4 mg Quetiapine Fumarate (Seroquel) 300 mg PO HS [facility] Last Admin: 04/17/18 21:32 Dose: 300 mg - Labs Labs: 04/13/18 17:36 04/16/18 05:25 PT 12.1 Seconds (9.8-13.1) 04/14/18 18:04 INR 1.1 04/14/18 18:04 APTT 28.3 Seconds (25.6-37.1) 04/14/18 18:04 Assessment and Plan (1) Dropped heart beats Status: Acute (2) Tylenol overdose Status: Acute (3) Bipolar 1 disorder Status: Acute (4) Mood disorder Status: Acute (5) Schizophrenia Status: Acute
[2018-04-18 16:30] VITALS: BP 125/75; PULSE 90; RESP 20; O2SAT 97
[2018-04-18 17:54] VITALS: TEMP 98
--- NOTE | 2018-04-18 23:31 | CP.PCM.DIS ---
Provider - Provider Date of Admission: 04/13/18 22:57 Attending physician: Robert Rosales MD Time Spent in preparation of Discharge (in minutes): 30 Diagnosis - Discharge Diagnosis (1) Bipolar 1 disorder Status: Acute (2) Dropped heart beats Status: Acute (3) Mood disorder Status: Acute Priority: High (4) Tylenol overdose Status: Acute Hospital Course - Lab Results Lab Results: Most Recent Lab Values WBC 8.5 K/uL (4.8-10.8) 04/13/18 17:36 RBC 3.68 Mil/uL (3.80-5.20) L 04/13/18 17:36 Hgb 12.2 g/dL (12.0-16.0) 04/13/18 17:36 Hct 36.4 % (34.0-47.0) 04/13/18 17:36 MCV 99.1 fl (81.0-99.0) H 04/13/18 17:36 MCH 33.3 pg (27.0-31.0) H 04/13/18 17:36 MCHC 33.6 g/dL (33.0-37.0) 04/13/18 17:36 RDW 13.8 % (11.5-14.5) 04/13/18 17:36 Plt Count 453 K/uL (130-400) H D 04/13/18 17:36 MPV 7.8 fl (7.2-11.7) 04/13/18 17:36 Neut % (Auto) 84.4 % (50.0-75.0) H 04/13/18 17:36 Lymph % (Auto) 9.6 % (20.0-40.0) L 04/13/18 17:36 Mccreary % (Auto) 5.8 % (0.0-10.0) 04/13/18 17:36 Eos % (Auto) 0.1 % (0.0-4.0) 04/13/18 17:36 Baso % (Auto) 0.1 % (0.0-2.0) 04/13/18 17:36 Neut # (Auto) 7.2 K/uL (1.8-7.0) H 04/13/18 17:36 Lymph # (Auto) 0.8 K/uL (1.0-4.3) L 04/13/18 17:36 Mccreary # (Auto) 0.5 K/uL (0.0-0.8) 04/13/18 17:36 Eos # (Auto) 0.0 K/uL (0.0-0.7) 04/13/18 17:36 Baso # (Auto) 0.0 K/uL (0.0-0.2) 04/13/18 17:36 Neutrophils % (Manual) 91 % (42-75) H 04/13/18 17:36 Band Neutrophils % 1 % (0-2) 04/13/18 17:36 Lymphocytes % (Manual) 4 % (20-50) L 04/13/18 17:36 Monocytes % (Manual) 4 % (0-10) 04/13/18 17:36 Toxic Granulation Present 04/13/18 17:36 Platelet Estimate Normal (NORMAL) 04/13/18 17:36 Anisocytosis (manual) Slight 04/13/18 17:36 PT 12.1 Seconds (9.8-13.1) 04/14/18 18:04 INR 1.1 04/14/18 18:04 APTT 28.3 Seconds (25.6-37.1) 04/14/18 18:04 Sodium 136 mmol/l (132-148) 04/16/18 05:25 Potassium 4.3 MMOL/L (3.6-5.0) 04/16/18 05:25 Chloride 98 mmol/L (98-107) 04/16/18 05:25 Carbon Dioxide 28 mmol/L (22-30) 04/16/18 05:25 Anion Gap 14 (10-20) 04/16/18 05:25 BUN 8 mg/dl (7-17) 04/16/18 05:25 Creatinine 0.5 mg/dl (0.7-1.2) L 04/16/18 05:25 Est GFR ( Amer) > 60 04/16/18 05:25 Est GFR (Non-Af Amer) > 60 04/16/18 05:25 Random Glucose 100 mg/dL (65-105) 04/16/18 05:25 Calcium 9.2 mg/dL (8.4-10.2) 04/16/18 05:25 Phosphorus 3.3 mg/dl (2.5-4.5) 04/15/18 10:17 Magnesium 2.2 MG/DL (1.6-2.3) 04/15/18 10:17 Total Bilirubin 0.4 mg/dl (0.2-1.3) 04/16/18 05:25 Direct Bilirubin 0.4 mg/ml (0.0-0.4) 04/14/18 18:04 AST 31 U/L (14-36) 04/16/18 05:25 ALT 81 U/L (9-52) H 04/16/18 05:25 Alkaline Phosphatase 72 U/L (38-126) 04/16/18 05:25 Total Protein 6.4 G/DL (6.3-8.2) 04/16/18 05:25 Albumin 3.6 g/dL (3.5-5.0) 04/16/18 05:25 Globulin 2.7 gm/dL (2.2-3.9) 04/16/18 05:25 Albumin/Globulin Ratio 1.3 (1.0-2.1) 04/16/18 05:25 Urine Color Yellow (YELLOW) 04/13/18 19:22 Urine Clarity Slighty-cloudy (Clear) 04/13/18 19:22 Urine pH 6.0 (5.0-8.0) 04/13/18 19:22 Ur Specific Oil Trough 1.021 (1.003-1.030) 04/13/18 19:22 Urine Protein Negative mg/dL (NEGATIVE) 04/13/18 19:22 Urine Glucose (UA) Neg mg/dL (Normal) 04/13/18 19:22 Urine Ketones Negative mg/dL (NEGATIVE) 04/13/18 19:22 Urine Blood Negative (NEGATIVE) 04/13/18 19:22 Urine Nitrate Negative (NEGATIVE) 04/13/18 19:22 Urine Bilirubin Negative (NEGATIVE) 04/13/18 19:22 Urine Urobilinogen 0.2-1.0 mg/dL (0.2-1.0) 04/13/18 19:22 Ur Leukocyte Esterase Neg Brit/uL (Negative) 04/13/18 19:22 Urine RBC (Auto) 2 /hpf (0-3) 04/13/18 19:22 Urine Microscopic WBC 1 /hpf (0-5) 04/13/18 19:22 Ur Squamous Epith Cells 1 /hpf (0-5) 04/13/18 19:22 Salicylates < 1.0 mg/dl 04/13/18 17:36 Urine Opiates Screen Positive (NEGATIVE) H 04/13/18 19:22 Urine Methadone Screen Negative (NEGATIVE) 04/13/18 19:22 Acetaminophen < 10.0 ug/ml (10.0-30.0) L 04/14/18 18:04 Ur Barbiturates Screen Negative (NEGATIVE) 04/13/18 19:22 Ur Phencyclidine Scrn Negative (NEGATIVE) 04/13/18 19:22 Ur Amphetamines Screen Negative (NEGATIVE) 04/13/18 19:22 U Benzodiazepines Scrn Negative (NEGATIVE) 04/13/18 19:22 U Oth Cocaine Metabols Negative (NEGATIVE) 04/13/18 19:22 U Cannabinoids Screen Negative (NEGATIVE) 04/13/18 19:22 Alcohol, Quantitative < 10 mg/dl (0-10) 04/13/18 17:36 - Hospital Course Hospital Course: This is a 58 y/o female admitted for tylenol overdose and anxiolytic withdrawal syndrome. She was noted to be very anxious, had elevated liver enzymes and elevated Tylenol level. She was given hydration and labs were monitored. She was seen by Psychiatry and advised Psych inpaientShe had an episode of skipped beats and was seen by Dr almeida and was cleared to go to inpatient Psych admission She was discharged in stable condition to Adult Psychatry Floor. Discharge Exam - Head Exam Head Exam: NORMAL INSPECTION - Eye Exam Eye Exam: Normal appearance - Respiratory Exam Respiratory Exam: Clear to PA & Lateral - Cardiovascular Exam Cardiovascular Exam: REGULAR RHYTHM - GI/Abdominal Exam GI & Abdominal Exam: Normal Bowel Sounds - Neurological Exam Neurological exam: Oriented x3 - Psychiatric Exam Psychiatric exam: Anxious - Skin Skin Exam: Normal Color Discharge Plan - Follow Up Plan Condition: FAIR Disposition: DISCHARGE TO PSYCH HOSPITAL Instructions: Acetaminophen Overdose (DC), Acetaminophen Overdose (GEN) Additional Instructions: Discharged to Adult Inpatient Psych floor. Referrals: Kerri Mcdaniel MD [Medical Doctor] - Armin Almeida MD [Staff Provider] -
== END 2018-04-18 17:20 | DRG 449 ==
LOC: H.ER 15:43 → UNDOADMIN 22:57 → H.ERHOLD 22:57 → H.TEL 04-14 01:45
PROVIDERS: ADMIT Family Medicine; ATTEND Family Medicine
DX: T39.1X4A Poisoning by 4-Aminophenol derivatives, undetermined, initial encounter (principal); F13.10 Sedative, hypnotic or anxiolytic abuse, uncomplicated; F31.4 Bipolar disorder, current episode depressed, severe, without psychotic features; F41.1 Generalized anxiety disorder; F41.0 Panic disorder [episodic paroxysmal anxiety]; I49.40 Unspecified premature depolarization; I10 Essential (primary) hypertension; F17.210 Nicotine dependence, cigarettes, uncomplicated; Z85.3 Personal history of malignant neoplasm of breast; Z88.6 Allergy status to analgesic agent; Y92.89 Other specified places as the place of occurrence of the external cause

== ENCOUNTER 2018-04-18 18:27 | Inpatient (IN) | payer MEDICAID ==
[2018-04-18 18:31] VITALS: BMI 21.6
[2018-04-18] MEDS ORDERED: Magnesium Hydroxide Susp 30 ml UD PO PRN (18:42)
[2018-04-18] MEDS ORDERED: Bismuth Subsalicylate 262 mg/15 ml Sus (240 ml) PO PRN (18:42)
--- NOTE | 2018-04-18 20:12 | PCM.BM ---
<Michael Mendez - Last Filed: 04/18/18 20:10> Treatment Plan Problems - Problems identified on initial assessmt Hopelessness/Helplessness Date Initiated: 04/18/18 Time Initiated: 20:10 Assessment reference: NA Status: Active Treatment assets and liabiliti Patient Assests: cooperative, insightful, motivated, good support system, cognitively intact, good interpersonal skills Patient Liabilities: physical pain, medical problems - Milieu Protocol Maintain good personal hygiene: daily Encourage regular showers, daily Remind patient to perform daily oral care, daily Assist patient to perform ADL's Conduct patient checks and document Observation sheet: Q15 minutes Maintain personal safety: every shift Educate patient to report safety concerns to staff, every shift Monitor environment for contraband/sharps Medication safety: Monitor for expected outcome, potential side effects: every shift, Assess barriers to learning: every shift, Assess readiness for medication education: every shift <Arabella Villarreal - Last Filed: 04/19/18 11:09> - Diagnosis (1) Mood disorder Status: Acute Interventions: Medication management, Individual and group therapy, Psychoeducation 04/19/18 11:09 (2) Generalized anxiety disorder Status: Acute Interventions: Medication management, Individual and group therapy, Psychoeducation 04/19/18 11:09 <Sedrick Stanford - Last Filed: 04/21/18 08:22> Family Contact Family involvement: Family/SO is involved Family contact: Patient agrees to contact, Family has been contacted by patient , Telephone contact initiated by staff Family contact name: Bassem Hagen - Son Family contacted how many times per week?: 3 Family contact comment: Pt's son is concerned with his mother's Ativan use and abuse and would like her to engage in substance abuse treatment and gain better outlets for her anxiety. Rehab and adult day care were discussed with son and pt. [phone]. - Goals for Treatment Patient goals for treatment: Pt would like to be tapered off of the Ativan and hopefully find non-habit forming alternatives to better manage her anxiety. Patient's family/SO goals for treatment: Bassem would like pt's medications to be changed to non-habit forming alternatives and would like pt to be referred to substance abuse treatment and possibly adult day care, so she can learn better ways of coping and not have so much down junito at home. Discharge/Continuing Care - Education Needs Education Needs: Family Medication, Family Diagnosis/Disease Process, Family Coping Skills, Family Community resources, Family Aftercare Safety Plan, Patient Medication, Patient Diagnosis/Disease Process, Patient Coping Skills, Patient Community resources, Patient Aftercare Safety Plan - Discharge Discharge Criteria: Tolerates medication w/o severe side effects, Free of Suicidal thoughts, Normal sleep pattern, No longer exhibiting s/s of withdrawal , Reduction of target symptoms Discharge to:: Home, With Family - Treatment Team Participation Patient/Family/SO Statement: 04/20/18 10:05 Pt was met with at bedside for treatment team as she "did not feel" like getting out of bed. Pt reported she is "not feeling right" both physically and emotionally. Pt reported she is experiencing stomach pains, headache and jittery. Dr. Villarreal explained that her Ativan will continue to be lowered and pt 's Seroquel will be raised. Pt expressed wanting to discontinue the Ativan and expressed wanting to make changes to ensure continued sobriety from benzodiazepines. Pt discussed rehabs as her son would like her to get a more comprehensive level of substance abuse treatment. Discussed with Family/SO: Yes Was Patient/Family/SO present at Treatment Team Meeting: Yes
[2018-04-19 06:50] LABS: HEMOGLOBIN 12.8 g/dL (12.0-16.0); MEAN CELL VOLUME 98.5 fl (81.0-99.0); MEAN CORPUSCULAR HEMOGLOBIN 33.9 pg (27.0-31.0); MEAN CORPUSCULAR HGB CONC 34.5 g/dL (33.0-37.0); RBC 3.77 Mil/uL (3.80-5.20); RED CELL DISTRIBUTION WIDTH 14.3 % (11.5-14.5); WHITE BLOOD COUNT 8.5 K/uL (4.8-10.8)
[2018-04-19 07:07] LABS: ALB/GLOB RATIO 1.3 (1.0-2.1); ALBUMIN 3.7 g/dL (3.5-5.0); ALT/SGPT 49 U/L (9-52); AST/SGOT 28 U/L (14-36); BLOOD UREA NITROGEN 15 mg/dl (7-17); CALCIUM 9.2 mg/dL (8.4-10.2); GFR NON-AFRICAN AMERICAN > 60; HDL CHOLESTEROL 72 MG/DL (30-70)
[2018-04-19 07:17] LABS: LDL CHOLESTEROL 77 mg/dL (0-129)
--- NOTE | 2018-04-19 07:57 | PCM.PSYCH ---
Initial Psychiatric Evaluation - Initial Psychiatric Evaluation Type of Admission: Voluntary Legal Status: Capacity Chief Complaint (in patient's own words): "I'm depressed." Patient's Reaction to Hospitalization: HPI: 58 yo female w/ h/o mood disorder (bipolar vs MDD), admitted s/p OD on tylenol, which she states she took to "feel better" (less pain and anxiety). She denies that it was a suicide attempt. +Depressed mood +Anxiety +Sleep disturbances. Denies AH/VH/paranoia/delusions. She reports that she has taken Ativan for several years and that it is the only thing that has been helpful for her chronic anxiety. Denies current signs/symptoms of benzo withdrawal. PPHx: 2 previous psychiatric admissions, denies h/o suicide attempts PMHx: H/o Breast CA 2010 s/p lumpectomy/chemo/rad; Cervical spine surgery x 3, chronic nerve pain All: Codeine FHx: Denies h/o mental illness SHx: On SSI, , 1 adult son; smoke 1/2 ppd; denies etoh/drugs Current Medications: Active Medications Generic Name Dose Route Start Last Admin Trade Name Freq PRN Reason Stop Dose Admin Acetaminophen 650 mg 04/18/18 18:42 Tylenol 325mg Tab PO Q4 PRN Pain, moderate (4-7) Al Hydrox/Mg Hydrox/Simethicone 30 ml 04/18/18 18:42 Maalox Plus 30 Ml PO Q4 PRN Dyspepsia Bismuth Subsalicylate 524 mg 04/18/18 18:42 Pepto-Bismol PO Q4 PRN Diarrhea Gabapentin 100 mg 04/19/18 09:00 Neurontin PO BID [facility] Ibuprofen 800 mg 04/18/18 19:10 04/18/18 21:59 Motrin Tab PO 800 mg Q12 PRN Administration Pain, moderate (4-7) Lorazepam 0.5 mg 04/18/18 18:42 Ativan PO 05/02/18 18:43 HS PRN Insomnia Lorazepam 0.5 mg 04/18/18 18:42 04/19/18 06:38 Ativan PO 05/02/18 18:43 0.5 mg Q6 PRN Administration Anixety/Agitation Magnesium Hydroxide 30 ml 04/18/18 18:42 Milk Of Magnesia PO HS PRN Constipation Nicotine 1 patch 04/19/18 09:00 Nicoderm Cq TD DAILY [facility] Quetiapine Fumarate 300 mg 04/18/18 22:00 04/18/18 21:05 Seroquel PO 300 mg HS [facility] Administration Past Psychiatric History - Past Psychiatric History Previous Treatment History: Inpatient Pertinent Medical Hx (Current Medical&Sleep Prob, Allergies): Allergies Allergy/AdvReac Type Severity Reaction Status Date / Time codeine AdvReac NAUSEA Verified 04/18/18 14:11 Gabapentin [Neurontin] 100 mg PO TID cap 04/18/18 Ibuprofen [Motrin Tab] 800 mg PO Q12 PRN tab 04/18/18 LORazepam [Ativan] 1 mg PO BID PRN tab 04/18/18 Nicotine 21 mg/24 hr [Nicoderm Cq] 1 patch TD DAILY patch 04/18/18 QUEtiapine [SEROquel] 300 mg PO HS #0 tab 04/18/18 Review of Systems - Psychiatric Psychiatric: As Per HPI, Abnormal Sleep Pattern, Anhedonia, Anxiety, Change in Appetite, Depression, Difficulty Concentrating, Hopelessness, Irritability, Mood Swings Mental Status Examination - Personal Presentation Personal Presentation: Looks stated age - Affect Affect: Constricted - Motor Activity Motor Activity: Calm - Reliability in Providing Information Reliability in Providing Information: Fair - Speech Speech: Organized - Mood Mood: Depressed, Anxious - Formal Thought Process Formal Thought Process: No Impairment - Hallucinations/Delusions Additional comments: NO AH/VH/paranoia/delusions - Cognitive Functions Orientation: Person, Place, Situation, Time Sensorium: Alert Attention/Concentration: Attentive Estimate of Intelligence: Average Judgement: Intact, as evidence by: Insight regarding need for hospitalization Memory: Recent intact, as evidence by: Ability to recall events of the day, Remote intact, as evidenced by: Abilit to recall sig. life events, Remote intact , as evidenced by: Ability to recall historical events - Risk Risk: Diminished functioning - Strength & Assets Inventory Strength & Assets Inventory: Cooperative - Limitations Limitations: Living alone DSM 5 DX - DSM 5 DSM 5 Diagnosis: Mood disorder (Bipolar d/o vs MDD); CARMEN - Recommended/Plan of Treatment Treatment Recommendations and Plan of Treatment: Mood disorder (Bipolar d/o vs MDD); CARMEN -Admit to psychiatry unit -Individual and group therapy -Psychoeducation -Taper Ativan gradually -Increase Seroquel to 350 mg PO HS -Nicotine patch -Medicine consult Projected ELOS: 5-7 days Discharge Plan and Discharge Criteria: Discharge when patient is psychiatrically stable - Smoking Cessation Smoking Cessation Initiated: Yes
[2018-04-19] MEDS: Alum-Mag Hydrox-Simethicone Susp (30 mL) PO PRN (11:27)
[2018-04-19 12:57] LABS: FOLATE 7.2 ng/mL
--- NOTE | 2018-04-20 08:01 | PCM.PYCHPN ---
Psychiatric Progress Note - Psychiatric Progress Note Patient seen today, length of contact: Patient evaluated, case discussed with team, chart reviewed Patient Chief Complaint: "I'm depressed." Problems Identified/Issues Discussed: Patient reports that she continues to feel depressed and anxious w/ low motivation and energy. She does not want to get out of bed or participate in groups or activities, despite staff encouragement. She reports sleep disturbances. No adverse effects to medications reported. Medication Change: No Medical Record Reviewed: Yes Consults ordered or reviewed: Medicine consult Mental Status Examination - Cognitive Function Orientation: Person, Place, Situation, Time Memory: Intact Attention: WNL Concentration: WNL Association: [facility] Fund of Knowledge: [facility] Decription of patient's judgement and insights: Poor I/J - Mood Mood: Depressed, Anxious - Affect Affect: Constricted - Formal Thought Process Formal Thought Process: No Impairment Psychotic Thoughts and Behaviors: Denies AH/VH/paranoia/delusions - Suicidal Ideation Suicidal Ideation: No - Homicidal Ideation Homicidal Ideation: No Goal/Treatment Plan - Goal/Treatment Plan Need for Continued Stay: Remain at risks for inpatient hospitalization, Severe depression anxiety, Discharge may exacerbated symptoms Progress Toward Problem(s) and Goals/Treatment Plan: Mood disorder (Bipolar d/o vs MDD); CARMEN -Individual and group therapy -Psychoeducation -Taper Ativan gradually -Continue Seroquel 350 mg PO HS -Nicotine patch -Medicine consult Estimated Date of D/C: 04/25/18
[2018-04-20] MEDS: Alum-Mag Hydrox-Simethicone Susp (30 mL) PO PRN (15:16)
--- NOTE | 2018-04-20 15:53 | CP.PCM.CON ---
<Maranda Cortez - Last Filed: 04/20/18 19:22> History of Present Illness - History of Present Illness History of Present Illness: 58 yo F with hx anxiety and depression, spinal surgeries, currently admitted to inpt psych unit due to tylenol overdose. Pt was admitted to telemetry before, LFTs trended down and tylenol level normalized. Was seen by wild life manager and cleared for d/c to psych. Pt seen today at bedside; has many concerns about her health. States she has pain in "right kidney" thinks she has fevers, sometimes has shortness of breath when she gets nervous, and feels like she is sweaty all the time. Asking for increased doses of seroquel and ativan, even though she states "I am trying to wean off ativan." ROS positive for chronic neck pain, nausea. Neg for headaches, dizziness, abdominal pain, issues urinating, issues stooling, leg edema, difficulty walking. Review of Systems - Review of Systems Review of Systems: as per HPI Past Patient History - Infectious Disease Hx of Infectious Diseases: None - Past Medical History & Family History Past Medical History?: Yes - Past Social History Smoking Status: Former Smoker - CARDIAC Hx Cardia Arrhythmia: No Hx Congestive Heart Failure: No Hx Hypercholesterolemia: No Hx Mitral Valve Prolapse: No Hx Pacemaker: No Hx Peripheral Edema: No - PULMONARY Hx Respiratory Disorders: No Hx Tuberculosis: No - NEUROLOGICAL HX Cerebrovascular Accident: No Hx Seizures: No - HEENT Hx HEENT Problems: No - RENAL Hx Chronic Kidney Disease: No - ENDOCRINE/METABOLIC Hx Endocrine Disorders: No - HEMATOLOGICAL/ONCOLOGICAL Hx Blood Disorders: No Hx Human Immunodeficiency Virus (HIV): No - INTEGUMENTARY Hx Dermatological Problems: No - MUSCULOSKELETAL/RHEUMATOLOGICAL Hx Musculoskeletal Disorders: Yes Hx Falls: Yes Hx Spinal Stenosis: Yes (cervical fusion/plate) Other/Comment: Spinal Fusion - GASTROINTESTINAL Hx Gastrointestinal Disorders: No - GENITOURINARY/GYNECOLOGICAL Hx Genitourinary Disorders: No Hx Sexually Transmitted Disorders: No - PSYCHIATRIC Hx Anxiety: Yes Hx Bipolar Disorder: Yes Hx Depression: Yes Hx Emotional Abuse: No Hx Physical Abuse: No Hx Sexual Abuse: No Hx Substance Use: No - SURGICAL HISTORY Hx Surgeries: Yes (cervical spine fusion/plate) Hx Appendectomy: No Hx Cholecystectomy: No Hx Coronary Stent: No - ANESTHESIA Hx Anesthesia: Yes Hx Anesthesia Reactions: No Hx Malignant Hyperthermia: No Meds Allergies/Adverse Reactions: Allergies Allergy/AdvReac Type Severity Reaction Status Date / Time codeine AdvReac NAUSEA Verified 04/18/18 14:11 - Medications Medications: Current Medications Acetaminophen (Tylenol 325mg Tab) 650 mg PO Q4 PRN PRN Reason: Pain, moderate (4-7) Al Hydrox/Mg Hydrox/Simethicone (Maalox Plus 30 Ml) 30 ml PO Q4 PRN PRN Reason: Dyspepsia Last Admin: 04/20/18 15:16 Dose: 30 ml Bismuth Subsalicylate (Pepto-Bismol) 524 mg PO Q4 PRN PRN Reason: Diarrhea Gabapentin (Neurontin) 100 mg PO BID [facility] Last Admin: 04/20/18 09:07 Dose: 100 mg Ibuprofen (Motrin Tab) 800 mg PO Q12 PRN PRN Reason: Pain, moderate (4-7) Last Admin: 04/20/18 12:09 Dose: 800 mg Lorazepam (Ativan) 0.5 mg PO HS PRN PRN Reason: Insomnia Stop: 05/02/18 18:43 Lorazepam (Ativan) 0.5 mg PO TID PRN PRN Reason: Anxiety Stop: 05/03/18 17:01 Last Admin: 04/20/18 12:09 Dose: 0.5 mg Magnesium Hydroxide (Milk Of Magnesia) 30 ml PO HS PRN PRN Reason: Constipation Nicotine (Nicoderm Cq) 1 patch TD DAILY [facility] Last Admin: 04/20/18 09:07 Dose: 1 patch Quetiapine Fumarate (Seroquel) 300 mg PO [facility] Last Admin: 04/19/18 21:11 Dose: 300 mg Quetiapine Fumarate (Seroquel) 50 mg PO [facility] Last Admin: 04/19/18 21:11 Dose: 50 mg Physical Exam - Constitutional Appears: No Acute Distress, Agitated - Eye Exam Eye Exam: Normal appearance - ENT Exam ENT Exam: Mucous Membranes Moist - Respiratory Exam Respiratory Exam: Clear to Auscultation Bilateral, NORMAL BREATHING PATTERN. absent: Chest Wall Tenderness, Respiratory Distress - Cardiovascular Exam Cardiovascular Exam: REGULAR RHYTHM, +S1, +S2 - GI/Abdominal Exam GI & Abdominal Exam: Normal Bowel Sounds, Soft. absent: Tenderness - Extremities Exam Extremities exam: Positive for: normal capillary refill, normal inspection. Negative for: calf tenderness, pedal edema - Back Exam Back exam: absent: CVA tenderness (L), CVA tenderness (R) - Neurological Exam Neurological exam: Alert, Oriented x3 - Psychiatric Exam Psychiatric exam: Agitated, Anxious, Depressed - Skin Skin Exam: Dry, Normal Color, Warm Results - Vital Signs Recent Vital Signs: Last Vital Signs Temp 97 F L 04/20/18 15:48 Pulse 107 H 04/20/18 15:48 Resp 18 04/20/18 15:48 BP 106/64 04/20/18 15:48 Pulse Ox - Labs Result Diagrams: 04/19/18 05:40 04/19/18 05:40 Labs: Laboratory Results - last 24 hr 04/19/18 05:40 RPR Nonreactive Assessment & Plan (1) Mood disorder Status: Chronic (2) Chronic pain Status: Chronic - Assessment and Plan (Free Text) Assessment: 58 yo F with anxiety and mood disorder; admitted to psych after tylenol overdose. Labs reviewed: normal liver, thyroid function; mild elevation in MCV on CBC but Vit B12 and folate wnl Elevation in BUN noted compared to prior admission, kidney function still wnl. Vital signs stable, pt afebrile. Plan: - primary management for anxiety symptoms as per inpt psych team - motrin 600 mg Q6 hrs PRN for pain; advised to take with food - pepcid 20 mg daily - advise adequate hydration and follow BUN - pt is ambulatory, low risk for VTE, encourage ambulation <Robert Rosales - Last Filed: 04/26/18 09:52> Meds - Medications Medications: Current Medications Acetaminophen (Tylenol 325mg Tab) 650 mg PO Q4 PRN PRN Reason: Pain, moderate (4-7) Last Admin: 04/25/18 22:50 Dose: 650 mg Al Hydrox/Mg Hydrox/Simethicone (Maalox Plus 30 Ml) 30 ml PO Q4 PRN PRN Reason: Dyspepsia Last Admin: 04/26/18 04:53 Dose: 30 ml Bismuth Subsalicylate (Pepto-Bismol) 524 mg PO Q4 PRN PRN Reason: Diarrhea Famotidine (Pepcid) 20 mg PO DAILY [facility] Last Admin: 04/26/18 08:22 Dose: 20 mg Gabapentin (Neurontin) 200 mg PO BID [facility] Last Admin: 04/26/18 08:22 Dose: 200 mg Hydroxyzine Pamoate (Vistaril) 25 mg PO TID PRN PRN Reason: Anxiety Last Admin: 04/25/18 12:53 Dose: 25 mg Ibuprofen (Motrin Tab) 600 mg PO Q6 PRN PRN Reason: Pain, moderate (4-7) Last Admin: 04/26/18 01:58 Dose: 600 mg Lidocaine (Lidoderm) 1 ea TD DAILY [facility] Last Admin: 04/26/18 02:35 Dose: 1 ea Magnesium Hydroxide (Milk Of Magnesia) 30 ml PO HS PRN PRN Reason: Constipation Nicotine (Nicoderm Cq) 1 patch TD DAILY [facility] Last Admin: 04/26/18 08:22 Dose: 1 patch Quetiapine Fumarate (Seroquel) 400 mg PO DAILY@2030 [facility] Last Admin: 04/25/18 20:32 Dose: 400 mg Quetiapine Fumarate (Seroquel) 100 mg PO DAILY [facility] Last Admin: 04/26/18 08:23 Dose: 100 mg Quetiapine Fumarate (Seroquel) 100 mg PO DAILY@1400 [facility] Last Admin: 04/25/18 13:43 Dose: 100 mg Results - Vital Signs Recent Vital Signs: Last Vital Signs Temp 97.8 F 04/26/18 05:38 Pulse 75 04/26/18 05:38 Resp 18 04/26/18 05:38 BP 108/68 04/26/18 05:38 Pulse Ox - Labs Result Diagrams: 04/19/18 05:40 04/19/18 05:40 Labs: Laboratory Results - last 24 hr 04/26/18 02:15 Troponin I < 0.0120 Assessment & Plan - Assessment and Plan (Free Text) Plan: I was present during evaluation and discussed with Dr Vasile alicia plans of care and mgt. Robert Rosales M.D.
--- NOTE | 2018-04-21 08:36 | PCM.PYCHPN ---
Psychiatric Progress Note - Psychiatric Progress Note Patient seen today, length of contact: Patient evaluated, case discussed with team, chart reviewed Patient Chief Complaint: "I'm depressed." Problems Identified/Issues Discussed: Patient reports that she continues to feel depressed and anxious w/ low motivation and energy. Patient encouraged to get out of bed and shower. She does not want to participate in groups or activities, despite staff encouragement. She reports sleep disturbances. No adverse effects to medications reported. Medication Change: Yes (Increase Seroquel) Medical Record Reviewed: Yes Consults ordered or reviewed: Medicine consult Mental Status Examination - Cognitive Function Orientation: Person, Place, Situation, Time Memory: Intact Attention: WNL Concentration: WNL Association: WNL Fund of Knowledge: WN Decription of patient's judgement and insights: Poor I/J - Mood Mood: Depressed, Anxious - Affect Affect: Constricted - Formal Thought Process Formal Thought Process: No Impairment Psychotic Thoughts and Behaviors: Denies AH/VH/paranoia/delusions - Suicidal Ideation Suicidal Ideation: No - Homicidal Ideation Homicidal Ideation: No Goal/Treatment Plan - Goal/Treatment Plan Need for Continued Stay: Remain at risks for inpatient hospitalization, Severe depression anxiety, Discharge may exacerbated symptoms Progress Toward Problem(s) and Goals/Treatment Plan: Mood disorder (Bipolar d/o vs MDD); CARMEN -Individual and group therapy -Psychoeducation -Continue Ativan; will attempt to taper gradually -Increase Seroquel to 50 mg PO Daily/ 350 mg PO HS -Nicotine patch -Medicine consult Estimated Date of D/C: 04/26/18
[2018-04-21] MEDS: Alum-Mag Hydrox-Simethicone Susp (30 mL) PO PRN (17:13)
--- NOTE | 2018-04-22 07:33 | PCM.PYCHPN ---
Psychiatric Progress Note - Psychiatric Progress Note Patient seen today, length of contact: Patient evaluated, case discussed with team, chart reviewed Patient Chief Complaint: "I'm depressed." Problems Identified/Issues Discussed: Patient reports that she continues to feel depressed and anxious w/ low motivation/energy and feelings of hopelessness. She does not want to participate in groups or activities, despite staff encouragement. She reports sleep disturbances. No adverse effects to medications reported. We discussed continued tapering of Ativan and titration of Seroquel. Medication Change: Yes (Increase Seroquel; Taper Ativan) Medical Record Reviewed: Yes Consults ordered or reviewed: Medicine consult Mental Status Examination - Cognitive Function Orientation: Person, Place, Situation, Time Memory: Intact Attention: WNL Concentration: WNL Association: WNL Fund of Knowledge: WN Decription of patient's judgement and insights: Poor I/J - Mood Mood: Depressed, Anxious - Affect Affect: Constricted - Formal Thought Process Formal Thought Process: No Impairment Psychotic Thoughts and Behaviors: Denies AH/VH/paranoia/delusions - Suicidal Ideation Suicidal Ideation: No - Homicidal Ideation Homicidal Ideation: No Goal/Treatment Plan - Goal/Treatment Plan Need for Continued Stay: Remain at risks for inpatient hospitalization, Severe depression anxiety, Discharge may exacerbated symptoms Progress Toward Problem(s) and Goals/Treatment Plan: Mood disorder (Bipolar d/o vs MDD); CARMEN -Individual and group therapy -Psychoeducation -Taper Ativan -Increase Seroquel -Nicotine patch -Medicine consult Estimated Date of D/C: 04/26/18
[2018-04-22] MEDS: Alum-Mag Hydrox-Simethicone Susp (30 mL) PO PRN (16:27)
--- NOTE | 2018-04-23 10:09 | PCM.PYCHPN ---
Psychiatric Progress Note - Psychiatric Progress Note Patient seen today, length of contact: Patient evaluated, case discussed with team, chart reviewed Patient Chief Complaint: "I'm depressed." Problems Identified/Issues Discussed: Patient reports that she continues to feel depressed and anxious w/ low motivation/energy and feelings of hopelessness. She reports feeling mild paranoia. She reports continued sleep disturbances. No adverse effects to medications reported. Medication Change: Yes (Increase Seroquel) Medical Record Reviewed: Yes Consults ordered or reviewed: Medicine consult Mental Status Examination - Cognitive Function Orientation: Person, Place, Situation, Time Memory: Intact Attention: WNL Concentration: WNL Association: WNL Fund of Knowledge: [facility] Decription of patient's judgement and insights: Improving I/J - Mood Mood: Depressed, Anxious - Affect Affect: Constricted - Formal Thought Process Formal Thought Process: Paranoia Psychotic Thoughts and Behaviors: Denies AH/VH/paranoia/delusions - Suicidal Ideation Suicidal Ideation: No - Homicidal Ideation Homicidal Ideation: No Goal/Treatment Plan - Goal/Treatment Plan Need for Continued Stay: Remain at risks for inpatient hospitalization, Severe depression anxiety, Discharge may exacerbated symptoms Progress Toward Problem(s) and Goals/Treatment Plan: Mood disorder (Bipolar d/o vs MDD); CARMEN -Individual and group therapy -Psychoeducation -Increase Seroquel -Nicotine patch -Medicine consult Estimated Date of D/C: 04/28/18
[2018-04-23] MEDS: Alum-Mag Hydrox-Simethicone Susp (30 mL) PO PRN (11:01)
--- NOTE | 2018-04-24 11:17 | PCM.PYCHPN ---
Psychiatric Progress Note - Psychiatric Progress Note Patient seen today, length of contact: Patient evaluated, case discussed with team, chart reviewed Patient Chief Complaint: "I'm depressed." Problems Identified/Issues Discussed: Patient reports that she continues to feel depressed w/ low motivation/energy and feelings of hopelessness. She reports continued sleep disturbances. No adverse effects to medications reported. Medication Change: Yes (Increase Seroquel; Stop Ativan) Medical Record Reviewed: Yes Consults ordered or reviewed: Medicine consult Mental Status Examination - Cognitive Function Orientation: Person, Place, Situation, Time Memory: Intact Attention: WNL Concentration: WNL Association: WN Fund of Knowledge: [facility] Decription of patient's judgement and insights: Improving I/J - Mood Mood: Depressed, Anxious - Affect Affect: Constricted - Formal Thought Process Formal Thought Process: No Impairment Psychotic Thoughts and Behaviors: Denies AH/VH/paranoia/delusions - Suicidal Ideation Suicidal Ideation: No - Homicidal Ideation Homicidal Ideation: No Goal/Treatment Plan - Goal/Treatment Plan Need for Continued Stay: Remain at risks for inpatient hospitalization, Severe depression anxiety, Discharge may exacerbated symptoms Progress Toward Problem(s) and Goals/Treatment Plan: Mood disorder (Bipolar d/o vs MDD); CARMEN -Individual and group therapy -Psychoeducation -Increase Seroquel -Stop Ativan -Nicotine patch -Medicine consult Estimated Date of D/C: 04/28/18
--- NOTE | 2018-04-25 08:04 | PCM.PYCHPN ---
Psychiatric Progress Note - Psychiatric Progress Note Patient seen today, length of contact: Patient evaluated, case discussed with team, chart reviewed Patient Chief Complaint: "I'm depressed." Problems Identified/Issues Discussed: Patient reports that she continues to feel depressed and anxious w/ low motivation/energy and feelings of hopelessness. Patient does not want to get out of bed and participate in groups despite staff encouragement. NO AH/VH/SI/ HI. No signs/symptoms of benzo withdrawal. Medication Change: No Medical Record Reviewed: Yes Consults ordered or reviewed: Medicine consult Mental Status Examination - Cognitive Function Orientation: Person, Place, Situation, Time Memory: Intact Attention: WNL Concentration: WNL Association: WNL Fund of Knowledge: WN Decription of patient's judgement and insights: Improving I/J - Mood Mood: Depressed, Anxious - Affect Affect: Constricted - Speech Speech: Appropriate - Formal Thought Process Formal Thought Process: No Impairment Psychotic Thoughts and Behaviors: Denies AH/VH/paranoia/delusions - Suicidal Ideation Suicidal Ideation: No - Homicidal Ideation Homicidal Ideation: No Goal/Treatment Plan - Goal/Treatment Plan Need for Continued Stay: Remain at risks for inpatient hospitalization, Severe depression anxiety, Discharge may exacerbated symptoms Progress Toward Problem(s) and Goals/Treatment Plan: Bipolar Disorder; CARMEN -Individual and group therapy -Psychoeducation -Continue Seroquel 100 mg PO AM/100 mg @2pm/ 400 mg HS -Nicotine patch -Medicine consult Estimated Date of D/C: 04/28/18
--- NOTE | 2018-04-25 13:46 | RAD ---
Date of service: 04/25/2018 PROCEDURE: Cervical Spine Radiographs. HISTORY: Pain. COMPARISON: Noncontrast cervical spine CT 01/22/2014. FINDINGS: BONES: Prior C3 through C5 partial vertebrectomy and posterior decompression anterior fusion is reiterated with reversal of cervical curvature unchanged. No interval definitive fracture or spondylolisthesis identified. Diffuse osteopenia suggests osteoporosis which limits interpretation. Extensive intrinsic posterior element fusion is again seen which may spare the C1 arch once again. No definitive spondylolisthesis. Intervertebral disc spaces separate from the fusion levels appears stable. The odontoid process appears intact. DISC SPACES: As above. SOFT TISSUES: No prevertebral soft tissue swelling. OTHER FINDINGS: None. IMPRESSION: Stable reversal of cervical curvature as well as postoperative fusion hardware from C3-C5 as discussed above. No interval spondylolisthesis or definitive fracture. Diffuse osteopenia is limits evaluation nondisplaced fractures. Posterior spinal decompression likely unchanged but better seen in prior CT than current radiographs.
[2018-04-25] MEDS: Alum-Mag Hydrox-Simethicone Susp (30 mL) PO PRN (20:02)
--- NOTE | 2018-04-26 02:21 | CP.PCM.PCO ---
Addendum Addendum: 04/26/18 02:17 Im notifed by nurse that patient is c/o left side precordial chest pain, that started sudden, not associated symptoms, , reproducible, no pleuritic associated with neck pain Patient examined bedside, AAO x3 chest pain reproducible CV: RRR. + S1, S2, no M/R/G resp: No rales, wheezing, rhonchi Assessment Chest pain reproducible Plan EKG: NSR, no ischemic acute changes compared to old EKG -troponin to f/u -Motrin 600 mg Po -Lidoderm Patch
[2018-04-26] MEDS: Lidocaine 5% Patch TD SCH (02:35)
[2018-04-26] MEDS: Alum-Mag Hydrox-Simethicone Susp (30 mL) PO PRN ×2 (04:53→16:30)
--- NOTE | 2018-04-26 08:41 | PCM.PYCHPN ---
Psychiatric Progress Note - Psychiatric Progress Note Patient seen today, length of contact: Patient evaluated, case discussed with team, chart reviewed Patient Chief Complaint: "I'm depressed." Problems Identified/Issues Discussed: Patient reports that her depression is starting to improve, but that she feels very anxious. Patient has many somatic complaints which vary daily. Patient encourage to get out of bed and participate in groups and activities. NO AH/VH/ SI/HI. Medication Change: No Medical Record Reviewed: Yes Consults ordered or reviewed: Medicine consult Mental Status Examination - Cognitive Function Orientation: Person, Place, Situation, Time Memory: Intact Attention: WNL Concentration: WNL Association: WNL Fund of Knowledge: [facility] Decription of patient's judgement and insights: Improving I/J - Mood Mood: Depressed, Anxious - Affect Affect: Constricted - Speech Speech: Appropriate - Formal Thought Process Formal Thought Process: No Impairment Psychotic Thoughts and Behaviors: Denies AH/VH/paranoia/delusions - Suicidal Ideation Suicidal Ideation: No - Homicidal Ideation Homicidal Ideation: No Goal/Treatment Plan - Goal/Treatment Plan Need for Continued Stay: Remain at risks for inpatient hospitalization, Severe depression anxiety, Discharge may exacerbated symptoms Progress Toward Problem(s) and Goals/Treatment Plan: Bipolar Disorder; CARMEN -Individual and group therapy -Psychoeducation -Continue Seroquel 100 mg PO AM/100 mg @2pm/ 400 mg HS -Nicotine patch -Medicine consult Estimated Date of D/C: 04/28/18
--- NOTE | 2018-04-26 09:55 | CP.PCM.PN ---
Subjective - Date & Time of Evaluation Date of Evaluation: 04/25/18 Time of Evaluation: 12:00 - Subjective Subjective: Patient complains of non specific aches and pains on most parts of the body. Also complains of C spine pain. Had previous surgery of the C spine Denies any trauma to the area. Objective - Vital Signs/Intake and Output Vital Signs (last 24 hours): Temp Pulse Resp BP Pulse Ox 97.8 F 75 18 108/68 04/26/18 05:38 04/26/18 05:38 04/26/18 05:38 04/26/18 05:38 - Medications Medications: Current Medications Acetaminophen (Tylenol 325mg Tab) 650 mg PO Q4 PRN PRN Reason: Pain, moderate (4-7) Last Admin: 04/25/18 22:50 Dose: 650 mg Al Hydrox/Mg Hydrox/Simethicone (Maalox Plus 30 Ml) 30 ml PO Q4 PRN PRN Reason: Dyspepsia Last Admin: 04/26/18 04:53 Dose: 30 ml Bismuth Subsalicylate (Pepto-Bismol) 524 mg PO Q4 PRN PRN Reason: Diarrhea Famotidine (Pepcid) 20 mg PO DAILY [facility] Last Admin: 04/26/18 08:22 Dose: 20 mg Gabapentin (Neurontin) 200 mg PO BID [facility] Last Admin: 04/26/18 08:22 Dose: 200 mg Hydroxyzine Pamoate (Vistaril) 25 mg PO TID PRN PRN Reason: Anxiety Last Admin: 04/25/18 12:53 Dose: 25 mg Ibuprofen (Motrin Tab) 600 mg PO Q6 PRN PRN Reason: Pain, moderate (4-7) Last Admin: 04/26/18 01:58 Dose: 600 mg Lidocaine (Lidoderm) 1 ea TD DAILY [facility] Last Admin: 04/26/18 02:35 Dose: 1 ea Magnesium Hydroxide (Milk Of Magnesia) 30 ml PO HS PRN PRN Reason: Constipation Nicotine (Nicoderm Cq) 1 patch TD DAILY [facility] Last Admin: 04/26/18 08:22 Dose: 1 patch Quetiapine Fumarate (Seroquel) 400 mg PO DAILY@2030 [facility] Last Admin: 04/25/18 20:32 Dose: 400 mg Quetiapine Fumarate (Seroquel) 100 mg PO DAILY [facility] Last Admin: 04/26/18 08:23 Dose: 100 mg Quetiapine Fumarate (Seroquel) 100 mg PO DAILY@1400 [facility] Last Admin: 04/25/18 13:43 Dose: 100 mg - Labs Labs: 04/19/18 05:40 04/19/18 05:40 - Head Exam Head Exam: NORMAL INSPECTION - Eye Exam Eye Exam: Normal appearance - ENT Exam ENT Exam: Mucous Membranes Moist - Respiratory Exam Respiratory Exam: Clear to Ausculation Bilateral - Cardiovascular Exam Cardiovascular Exam: REGULAR RHYTHM - GI/Abdominal Exam GI & Abdominal Exam: Normal Bowel Sounds - Extremities Exam Extremities Exam: Full ROM - Neurological Exam Neurological Exam: Awake, Oriented x3 - Psychiatric Exam Psychiatric exam: Anxious Assessment and Plan (1) Generalized anxiety disorder Status: Acute (2) Cervical radiculopathy Status: Acute (3) Chronic pain Status: Chronic - Assessment and Plan (Free Text) Plan: Send for X ray f C spine pain meds cyclobenzaprine
[2018-04-27] MEDS: Lidocaine 5% Patch TD SCH (08:17)
--- NOTE | 2018-04-27 08:57 | PCM.PYCHPN ---
Psychiatric Progress Note - Psychiatric Progress Note Patient seen today, length of contact: Patient evaluated, case discussed with team, chart reviewed Patient Chief Complaint: "I'm depressed." Problems Identified/Issues Discussed: Patient continues to be anxious and somatically preoccupied and has complaints of chronic pain. She continues to feel depressed but has been out of bed more and is more engaged in groups. No AH/VH/SI/HI. Medication Change: No Medical Record Reviewed: Yes Consults ordered or reviewed: Medicine consult Mental Status Examination - Cognitive Function Orientation: Person, Place, Situation, Time Memory: Intact Attention: WNL Concentration: WNL Association: WNL Fund of Knowledge: [facility] Decription of patient's judgement and insights: Improving I/J - Mood Mood: Depressed, Anxious - Affect Affect: Constricted - Speech Speech: Appropriate - Formal Thought Process Formal Thought Process: No Impairment Psychotic Thoughts and Behaviors: Denies AH/VH/paranoia/delusions - Suicidal Ideation Suicidal Ideation: No - Homicidal Ideation Homicidal Ideation: No Goal/Treatment Plan - Goal/Treatment Plan Need for Continued Stay: Remain at risks for inpatient hospitalization, Severe depression anxiety, Discharge may exacerbated symptoms Progress Toward Problem(s) and Goals/Treatment Plan: Bipolar Disorder; [facility] -Individual and group therapy -Psychoeducation -Continue Seroquel 100 mg PO AM/100 mg @2pm/ 400 mg HS -Nicotine patch -Medicine consult Estimated Date of D/C: 04/29/18
[2018-04-27] MEDS: Alum-Mag Hydrox-Simethicone Susp (30 mL) PO PRN ×2 (10:03→23:02)
--- NOTE | 2018-04-27 16:07 | RAD ---
Date of service: 04/27/2018 HISTORY: mid back persistent severe pain COMPARISON: No prior. FINDINGS: BONES: There is normal alignment of the thoracic vertebral bodies. There is normal thoracic kyphosis. There is diffuse bone demineralization. No acute fracture. DISC SPACES: There is multilevel degenerative disc disease with anterior osteophytes and reduced disc heights worse in the mid thoracic spine at T4-5. There is ossification of the medial lower anterior longitudinal ligament. SOFT TISSUES: Normal. OTHER FINDINGS: None. IMPRESSION: No acute fracture. Diffuse bone demineralization. Multilevel degenerative disc disease, worse at T4-5.
--- NOTE | 2018-04-27 18:10 | CP.PCM.PN ---
Subjective - Date & Time of Evaluation Date of Evaluation: 04/27/18 Time of Evaluation: 13:00 - Subjective Subjective: 58 y/o F reports feeling well. Pt complains of thoracic midline back sharp pain that is constant and has been aggravating progressively. Pt requesting a stronger pain medication. Pt afebrile, tolerating PO with No acute events overnight. Pt denies fever, chills, chest pain, SOB, abdominal pain, N/V. Objective - Vital Signs/Intake and Output Vital Signs (last 24 hours): Temp Pulse Resp BP Pulse Ox 98.1 F 79 20 109/64 04/27/18 15:55 04/27/18 15:55 04/27/18 15:55 04/27/18 15:55 - Medications Medications: Current Medications Acetaminophen (Tylenol 325mg Tab) 650 mg PO Q4 PRN PRN Reason: Pain, moderate (4-7) Last Admin: 04/27/18 16:58 Dose: 650 mg Al Hydrox/Mg Hydrox/Simethicone (Maalox Plus 30 Ml) 30 ml PO Q4 PRN PRN Reason: Dyspepsia Last Admin: 04/27/18 10:03 Dose: 30 ml Bismuth Subsalicylate (Pepto-Bismol) 524 mg PO Q4 PRN PRN Reason: Diarrhea Cyclobenzaprine HCl (Flexeril) 10 mg PO HS PRN PRN Reason: Muscle spasm Famotidine (Pepcid) 20 mg PO DAILY [facility] Last Admin: 04/27/18 08:22 Dose: 20 mg Gabapentin (Neurontin) 200 mg PO BID [facility] Last Admin: 04/27/18 16:38 Dose: 200 mg Hydroxyzine Pamoate (Vistaril) 25 mg PO TID PRN PRN Reason: Anxiety Last Admin: 04/27/18 17:00 Dose: 25 mg Ibuprofen (Motrin Tab) 600 mg PO Q6 PRN PRN Reason: Pain, moderate (4-7) Last Admin: 04/27/18 08:20 Dose: 600 mg Lidocaine (Lidoderm) 1 ea TD DAILY [facility] Last Admin: 04/27/18 08:17 Dose: 1 ea Magnesium Hydroxide (Milk Of Magnesia) 30 ml PO HS PRN PRN Reason: Constipation Nicotine (Nicoderm Cq) 1 patch TD DAILY [facility] Last Admin: 04/27/18 08:22 Dose: 1 patch Quetiapine Fumarate (Seroquel) 400 mg PO DAILY@2030 [facility] Last Admin: 04/26/18 20:33 Dose: 400 mg Quetiapine Fumarate (Seroquel) 100 mg PO DAILY [facility] Last Admin: 04/27/18 08:23 Dose: 100 mg Quetiapine Fumarate (Seroquel) 100 mg PO DAILY@1400 [facility] Last Admin: 04/27/18 13:03 Dose: 100 mg - Labs Labs: 04/19/18 05:40 04/19/18 05:40 - Constitutional Appears: No Acute Distress - Head Exam Head Exam: ATRAUMATIC, NORMAL INSPECTION - Eye Exam Eye Exam: EOMI, Normal appearance - ENT Exam ENT Exam: Mucous Membranes Moist - Neck Exam Neck Exam: Full ROM. absent: Meningismus - Respiratory Exam Respiratory Exam: Clear to Ausculation Bilateral, NORMAL BREATHING PATTERN - Cardiovascular Exam Cardiovascular Exam: REGULAR RHYTHM, +S1, +S2 - GI/Abdominal Exam GI & Abdominal Exam: Soft. absent: Distended, Guarding, Tenderness - Back Exam Back Exam: paraspinal tenderness (thoracic). absent: CVA tenderness (L), CVA tenderness (R) - Neurological Exam Neurological Exam: Alert, Awake, Oriented x3 Assessment and Plan - Assessment and Plan (Free Text) Assessment: 58 y/o F with a PSHx ?cervical spine decompression surgery admitted to psych unit for management of CARMEN. --Stable, feeling better. --Will order a X-ray of thoracic spine. --Pt reassured on the non-concerning Cervical spine X-ray results. --Will evaluate pain management after X-ray results. Case discussed with Dr Rosales.
--- NOTE | 2018-04-28 08:26 | PCM.BM ---
Treatment Plan Problems - Problems identified on initial assessmt Hopelessness/Helplessness Date Initiated: 04/18/18 Time Initiated: 20:10 Assessment reference: NA Status: Active Treatment assets and liabiliti Patient Assests: cooperative, insightful, motivated, good support system, cognitively intact, good interpersonal skills Patient Liabilities: physical pain, medical problems - Milieu Protocol Maintain good personal hygiene: daily Encourage regular showers, daily Remind patient to perform daily oral care, daily Assist patient to perform ADL's Conduct patient checks and document Observation sheet: Q15 minutes Maintain personal safety: every shift Educate patient to report safety concerns to staff, every shift Monitor environment for contraband/sharps Medication safety: Monitor for expected outcome, potential side effects: every shift, Assess barriers to learning: every shift, Assess readiness for medication education: every shift Milieu Narrative: Bipolar Disorder; CARMEN -Individual and group therapy -Psychoeducation -Continue Seroquel 100 mg PO AM/100 mg @2pm/ 400 mg HS -Nicotine patch -Medicine consult Family Contact Family involvement: Family/SO is involved Family contact: Patient agrees to contact, Family has been contacted by patient , Telephone contact initiated by staff Family contact name: Bassem Haegn - Son Family contacted how many times per week?: 3 Family contact comment: Pt's son is concerned with his mother's Ativan use and abuse and would like her to engage in substance abuse treatment and gain better outlets for her anxiety. Rehab and adult day care were discussed with son and pt. [phone]. - Goals for Treatment Patient goals for treatment: Pt would like to be tapered off of the Ativan and hopefully find non-habit forming alternatives to better manage her anxiety. Patient's family/SO goals for treatment: Bassem would like pt's medications to be changed to non-habit forming alternatives and would like pt to be referred to substance abuse treatment and possibly adult day care, so she can learn better ways of coping and not have so much down junito at home. Discharge/Continuing Care - Education Needs Education Needs: Family Medication, Family Diagnosis/Disease Process, Family Coping Skills, Family Community resources, Family Aftercare Safety Plan, Patient Medication, Patient Diagnosis/Disease Process, Patient Coping Skills, Patient Community resources, Patient Aftercare Safety Plan - Discharge Discharge Criteria: Tolerates medication w/o severe side effects, Free of Suicidal thoughts, Normal sleep pattern, No longer exhibiting s/s of withdrawal , Reduction of target symptoms Discharge to:: Home, With Family - Treatment Team Participation Patient/Family/SO Statement: Bipolar Disorder; CARMEN -Individual and group therapy -Psychoeducation -Continue Seroquel 100 mg PO AM/100 mg @2pm/ 400 mg HS -Nicotine patch -Medicine consult Discussed with Family/SO: Yes Was Patient/Family/SO present at Treatment Team Meeting: Yes Treatment Plan Review - Problem Hopelessness/Helplessness Time Initiated: 20:10 - Discharge / Continuing Care Discharge to:: Home, With Family Behavioral Health Services: Intensive Outpatient, Outpatient therapy Health Needs: Alcohol/Drug treatment (Pt was seen in treatment team for review on 04/27/18. Pt reported she feels "great this morning." But reported she does not feel ready to leave the hospital. Pt complained of continued tremors. Pt believes this is her still withdrawing from the Ativan. Pt spoke of continued pain in her legs and the need for another X-ray of her lower spine. Dr. Villarreal tried to impart the severity of benzodiazepine use and abuse and that it can cause . Discharge date set for 04/29/18. )
[2018-04-28] MEDS: Lidocaine 5% Patch TD SCH (08:41)
--- NOTE | 2018-04-28 10:03 | PCM.PYCHPN ---
Psychiatric Progress Note - Psychiatric Progress Note Patient seen today, length of contact: Patient evaluated, case discussed with team, chart reviewed Patient Chief Complaint: "I'm feeling better." Problems Identified/Issues Discussed: Patient is improving clinically. She denies acute depression and reports that her anxiety is improving. She is more goal oriented and engaging appropriately in groups. We discussed likely discharge tomorrow. No AH/VH/SI/HI. Medication Change: No Medical Record Reviewed: Yes Consults ordered or reviewed: Medicine consult Mental Status Examination - Cognitive Function Orientation: Person, Place, Situation, Time Memory: Intact Attention: WNL Concentration: WNL Association: WNL Fund of Knowledge: [facility] Decription of patient's judgement and insights: Improving I/J - Mood Mood: Anxious - Affect Affect: Broad - Speech Speech: Appropriate - Formal Thought Process Formal Thought Process: No Impairment Psychotic Thoughts and Behaviors: Denies AH/VH/paranoia/delusions - Suicidal Ideation Suicidal Ideation: No - Homicidal Ideation Homicidal Ideation: No Goal/Treatment Plan - Goal/Treatment Plan Need for Continued Stay: Severe depression anxiety Progress Toward Problem(s) and Goals/Treatment Plan: Bipolar Disorder; CARMEN -Individual and group therapy -Psychoeducation -Continue Seroquel 100 mg PO AM/100 mg @2pm/ 400 mg HS -Nicotine patch -Medicine consult Estimated Date of D/C: 04/29/18
[2018-04-28 15:50] VITALS: RESP 18
[2018-04-29 06:14] VITALS: BP 121/71; PULSE 84; TEMP 98.1
--- NOTE | 2018-04-29 08:14 | PCM.PYCHDC ---
Mental Status Examination - Mental Status Examination Orientation: Person, Place, Situation, Time Memory: Intact Mood: Neutral Affect: Broad Speech: Appropriate Attention: WNL Concentration: WNL Association: WNL Fund of Knowledge: WNL Formal Thought Process: No Impairment Description of patient's judgement and insight: Fair I/J Psychotic Thoughts and Behaviors: Denies AH/VH/paranoia/delusions Suicidal Ideation: No Current Homicidal Ideation?: No Discharge Summary - Discharge Note Reason for Hospitalization: HPI: 58 yo female w/ h/o mood disorder (bipolar vs MDD), admitted s/p OD on tylenol, which she states she took to "feel better" (less pain and anxiety). She denies that it was a suicide attempt. +Depressed mood +Anxiety +Sleep disturbances. Denies AH/VH/paranoia/delusions. She reports that she has taken Ativan for several years and that it is the only thing that has been helpful for her chronic anxiety. Denies current signs/symptoms of benzo withdrawal. PPHx: 2 previous psychiatric admissions, denies h/o suicide attempts PMHx: H/o Breast CA 2010 s/p lumpectomy/chemo/rad; Cervical spine surgery x 3, chronic nerve pain All: Codeine FHx: Denies h/o mental illness SHx: On SSI, , 1 adult son; smoke 1/2 ppd; denies etoh/drugs Consultations:: List each consultation separately and include: 1. Reason for request. 2. Findings. 3. Follow-up Consultations: Medicine consult Summary of Hospital Course include:: 1. Description of specific treatment plan utilized for patients during their course of treatmen. 2. Summarize the time- course for resolution of acute symptoms and/or regressed behaviors. 3. Describe issues identified and worked on during hospitalization. 4. Describe medication utilized. 5. Describe medical problems identified and treated. 6. Reassessment of suicide risk Summary of Hospital Course: Patient admitted to the psychiatry unit. Individual and group therapy were provided. Patient was stabilized on Seroquel 100 mg PO BID/ 400 mg PO HS. Patient was gradually tapered off benzodiazepines. Psychoeducation provided on the dangers of chronic benzo abuse. She is currently psychiatrically stable for discharge. She denies acute depression/anxiety/AH/VH/paranoia/delusions/SI/ HI. - Diagnosis (1) Mood disorder Current Visit: No Status: Chronic (2) Generalized anxiety disorder Current Visit: Yes Status: Chronic - Final Diagnosis (DSM 5) Condition upon Discharge: STABLE DSM 5: Mood Disorder NOS vs Bipolar Disorder; Generalized Anxiety Disorder Disposition: HOME/ ROUTINE Follow-up Treatment Plan: Mood Disorder NOS vs Bipolar Disorder; CARMEN -Individual and group therapy -Psychoeducation -Continue Seroquel 100 mg PO BID/ 400 mg HS -Nicotine patch -Medicine consult Prescriptions/Medication Reconciliation: Famotidine [Pepcid] 20 mg PO DAILY #30 tab Gabapentin [Neurontin] 200 mg PO BID #120 cap Nicotine 21 mg/24 hr [Nicoderm Cq] 1 patch TD DAILY #30 patch QUEtiapine [Seroquel] 100 mg PO BID #60 tab QUEtiapine [SEROquel] 400 mg PO DAILY@2030 #60 tab - Smoking Cessation Smoking Cessation Medication prescribed: Yes - Antipsychotic Medications Pt discharged on 2 or more routine antipsychotic medications: No
[2018-04-29] MEDS: Lidocaine 5% Patch TD SCH (08:44)
== END 2018-04-29 14:32 | disposition home or self-care (01) | DRG 430 ==
LOC: H.STEP 18:40
PROVIDERS: ADMIT Psychiatry & Neurology Psychiatry; ATTEND Psychiatry & Neurology Psychiatry
PROC: GZHZZZZ Group Psychotherapy (ICD-10-PCS; principal; 2018-04-18)
PROC: GZ58ZZZ Individual Psychotherapy, Cognitive-Behavioral (ICD-10-PCS; 2018-04-18)
DX: F31.9 Bipolar disorder, unspecified (principal); F22 Delusional disorders; F41.1 Generalized anxiety disorder; G89.29 Other chronic pain; M54.12 Radiculopathy, cervical region; M48.02 Spinal stenosis, cervical region; Z85.3 Personal history of malignant neoplasm of breast; Z87.891 Personal history of nicotine dependence; Z88.6 Allergy status to analgesic agent

== ENCOUNTER 2018-06-12 14:28 | Emergency (ER) | payer OTHER ==
[2018-06-12 14:29] VITALS: BMI 21.6
[2018-06-12 14:34] VITALS: BP 97/72; PULSE 81; RESP 18; TEMP 98.1; O2SAT 100
--- NOTE | 2018-06-12 15:42 | ED PDOC ---
HPI: SOB/CHF/COPD Time Seen by Provider: 06/12/18 14:53 Chief Complaint (Nursing): Shortness Of Breath History Per: Patient Additional Complaint(s): 58 y/o female with a PMHx of anxiety, bipolar disorder, and depression presents to the ED complaining of feeling weak, jittery, "like I'm withdrawing from Ativan." Pt reports she was on Xanax and was recently changed to Ativan. pt last took 1 mg tab yesterday. Pt also has loose, watery, non bloody stools, onset 5 days ago. No fever or chills. no nausea or vomiting. Pt notes no appetite. Pt states, "I think of hurting myself, i don't feel comfortable going home." PMD: Alejandro Valderrama Past Medical History Reviewed: Historical Data, Nursing Documentation, Vital Signs Vital Signs: Last Vital Signs Temp 98.1 F 06/12/18 14:31 Pulse 81 06/12/18 14:31 Resp 18 06/12/18 14:31 BP 97/72 L 06/12/18 14:31 Pulse Ox 100 06/12/18 14:31 - Medical History PMH: Anxiety, Bipolar Disorder, Depression, HTN Denies: Cardia Arrhythmia, CHF, Diabetes, Hepatitis, HIV, Hypercholesterolemia, Mitral Valve Prolapse, Paranoia, Peripheral Edema, Personality Disorder, Post Traumatic Stress Disorder, Chronic Kidney Disease, Schizophrenia, Seizures, Sexually Transmitted Disease - Surgical History Surgical History: Denies: Appendectomy, Cholecystectomy, Coronary Stent, Pacemaker - Family History Family History: States: Unknown Family Hx - Living Arrangements Living Arrangements: With Family - Social History Current smoker - smoking cessation education provided: No Alcohol: None Drugs: Opiates - Home Medications Home Medications: Ambulatory Orders Medication Instructions Recorded Famotidine [Pepcid] 20 mg PO DAILY #30 tab 04/28/18 Gabapentin [Neurontin] 200 mg PO BID #120 cap 04/28/18 Ibuprofen [Motrin Tab] 600 mg PO Q6 PRN tab 04/28/18 Nicotine 21 mg/24 hr [Nicoderm Cq] 1 patch TD DAILY #30 patch 04/28/18 QUEtiapine [SEROquel] 400 mg PO DAILY@2029 #60 tab 04/28/18 QUEtiapine [Seroquel] 100 mg PO BID #60 tab 04/28/18 - Allergies Allergies/Adverse Reactions: Allergies Allergy/AdvReac Type Severity Reaction Status Date / Time codeine AdvReac NAUSEA Verified 04/18/18 14:11 Review of Systems ROS Statement: Except As Marked, All Systems Reviewed And Found Negative Psych: Positive for: Depression, Withdrawal Physical Exam - Reviewed Nursing Documentation Reviewed: Yes Vital Signs Reviewed: Yes - Physical Exam Appears: Positive for: Well, Non-toxic, No Acute Distress Head Exam: Positive for: ATRAUMATIC, NORMAL INSPECTION, NORMOCEPHALIC Skin: Positive for: Normal Color, Warm, DRY Eye Exam: Positive for: EOMI, Normal appearance, PERRL ENT: Positive for: Normal ENT Inspection Neck: Positive for: Normal, Painless ROM Cardiovascular/Chest: Positive for: Regular Rate, Rhythm Respiratory: Positive for: CNT, Normal Breath Sounds Gastrointestinal/Abdominal: Positive for: Normal Exam, Soft Back: Positive for: Normal Inspection Extremity: Positive for: Normal ROM Neurologic/Psych: Positive for: Alert, Oriented - Laboratory Results Result Diagrams: 06/12/18 16:46 06/12/18 16:46 - ECG O2 Sat by Pulse Oximetry: 100 Medical Decision Making Medical Decision Making: Iv access established and Ativan administered Pt doing well on re-eval, sitting in bed talking ot mother at bedside. labs resulted and reviewed, Pt tsrated on Keflex for UTI noted on UA. Pt admits to frequency, denies any hematuria or dysuria. Pt on re-eval questioned in regards to homicidal and suicidal ideations, pt states " I do not want to go home, Im scared, i need detox,i want to her myself sometimes." Pt medically cleared at this time in order to undergo crisis eval. Pt states she is ok to go home as long as she has some "Pills of Ativan to go home with." Pt advised that Ativan RX will not be prescribed at this time. Pt then asked for Seroquel or Xanax instead. pt advised that No RX will be given after todays visit. Pt appears to be bed seeking, advised if medication is what she is looking for Crisis will not be able to provide RX for controlled substances. Pt asked if she still would like to see crisis and Pt declined crisis. Pt asked if she was having any homicidal or suicidal ideations and Pt denied. Pt asked if she was looking for RX only and admitted yes. "If I am not getting an Ativan RX I am going to go home." Disposition - Clinical Impression Clinical Impression: Opiate addiction - Patient ED Disposition Is Patient to be Admitted: No - Disposition Disposition: Routine/Home Disposition Time: 20:11 Condition: STABLE Forms: [employer] ([place])
[2018-06-12 16:54] LABS: BASO % 0.4 % (0.0-2.0); EOS % 0.2 % (0.0-4.0); HEMOGLOBIN 16.2 g/dL (12.0-16.0); LYMPH # 1.7 K/uL (1.0-4.3); LYMPH % 19.9 % (20.0-40.0); MEAN CELL VOLUME 101.5 fl (81.0-99.0); MEAN CORPUSCULAR HGB CONC 33.5 g/dL (33.0-37.0); MEAN PLATELET VOLUME 7.4 fl (7.2-11.7); MONO # 0.8 K/uL (0.0-0.8); MONO % 9.2 % (0.0-10.0); NEUT # 6.1 K/uL (1.8-7.0); NEUT % 70.3 % (50.0-75.0); NRBC % 0.1 % (0.0-0.0); RBC 4.77 Mil/uL (3.80-5.20); RED CELL DISTRIBUTION WIDTH 15.9 % (11.5-14.5); WHITE BLOOD COUNT 8.7 K/uL (4.8-10.8)
--- NOTE | 2018-06-12 16:55 | RAD ---
Date of service: 06/12/2018 PROCEDURE: CHEST RADIOGRAPH, 1 VIEW HISTORY: med screening COMPARISON: 04/13/2018 FINDINGS: LUNGS: Clear. PLEURA: No pneumothorax or pleural fluid seen. CARDIOVASCULAR: Normal. OSSEOUS STRUCTURES: No significant abnormalities. VISUALIZED UPPER ABDOMEN: Normal. OTHER FINDINGS: None. IMPRESSION: No active disease.
[2018-06-12 17:06] LABS: SQUAMOUS EPITHIAL 1 /hpf (0-5); URINE AMORPHOUS SEDIMENT RARE /ul (<OCC); URINE BILIRUBIN NEGATIVE (NEGATIVE); URINE BLOOD NEGATIVE (NEGATIVE); URINE CLARITY CLOUDY (Clear); URINE COLOR YELLOW (YELLOW); URINE GLUCOSE (UA) NEG (Normal); URINE LEUKOCYTE ESTERASE LARGE Leu/uL (Negative); URINE PROTEIN 30 mg/dL (NEGATIVE); URINE UROBILINOGEN 0.2-1.0 mg/dL (0.2-1.0)
[2018-06-12 17:09] LABS: ALB/GLOB RATIO 1.1 (1.0-2.1); ALBUMIN 4.1 g/dL (3.5-5.0); ALT/SGPT 26 U/L (9-52); AST/SGOT 26 U/L (14-36); BLOOD UREA NITROGEN 11 mg/dl (7-17); CALCIUM 9.3 mg/dL (8.4-10.2); GFR NON-AFRICAN AMERICAN > 60
[2018-06-12 17:18] LABS: BARBITURATES, UR NEGATIVE (NEGATIVE); BENZODIAZEPINES, UR NEGATIVE (NEGATIVE); OPIATES, UR POSITIVE (NEGATIVE); PHENCYCLIDINE, UR NEGATIVE (NEGATIVE)
--- NOTE | 2018-06-13 13:20 | CARD ---
APPROVED REPORT Date of service: 06/12/2018 EKG Measurement Heart [id number] <Conclusion> Normal sinus rhythm Rightward axis Abnormal ECG
== END 2018-06-12 22:10 | disposition home or self-care (01) ==
LOC: H.ER 14:28
DX: F11.20 Opioid dependence, uncomplicated (principal); Z86.59 Personal history of other mental and behavioral disorders; I10 Essential (primary) hypertension; J44.9 Chronic obstructive pulmonary disease, unspecified; Z88.5 Allergy status to narcotic agent
CPT/HCPCS: 71045; 80053; 80320; 80324; 80345; 80346; 80349; 80353; 80358; 80361; 81003; 82948; 83992; 85025; 93005; 96374; 99284; J2060

== ENCOUNTER 2018-06-14 17:29 | Inpatient (IN) | payer OTHER ==
[2018-06-14 17:29] VITALS: BMI 21.6
--- NOTE | 2018-06-14 20:41 | ED PDOC ---
HPI: Psych/Substance Abuse Time Seen by Provider: 06/14/18 19:42 Chief Complaint (Nursing): Psychiatric Evaluation Chief Complaint (Provider): Psychiatric Evaluation History Per: Patient History/Exam Limitations: no limitations Onset/Duration Of Symptoms: Days (x2) Current Symptoms Are (Timing): Still Present Associated Symptoms: Depression Additional Complaint(s): 58 year old female, with a past medical history of depression and a nxiety, presents to the ED complaining of suicidal ideation. Patient was evaluated 2 days ago for similar complaints. She had been dependent on Ativan but was recently taken off of it. She found pills for Ativan 10 days ago and has been taking 5mg dialy. She states she ran out of seroquel which she was prescribed 800mg nightly and 200mg daily. She reports a suicidal feeling as well as severe anxiety but has no plan. At present patient has no suicidal ideation. PMD: Alejandro Joseph Pain Management: Dr. Deejay Martin Past Medical History Reviewed: Historical Data, Nursing Documentation, Vital Signs Vital Signs: Last Vital Signs Temp 98.2 F 06/14/18 17:42 Pulse 94 H 06/14/18 17:42 Resp 20 06/14/18 17:42 BP 115/72 06/14/18 17:42 Pulse Ox 96 06/14/18 17:42 - Medical History PMH: Anxiety, Bipolar Disorder, Depression, HTN Denies: Cardia Arrhythmia, CHF, Diabetes, Hepatitis, HIV, Hypercholesterolemia, Mitral Valve Prolapse, Paranoia, Peripheral Edema, Personality Disorder, Post Traumatic Stress Disorder, Chronic Kidney Disease, Schizophrenia, Seizures, Sexually Transmitted Disease - Surgical History Surgical History: Denies: Appendectomy, Cholecystectomy, Coronary Stent, Pacemaker Other surgeries: 3 neck sugeries for disc herniation - Family History Family History: States: Unknown Family Hx - Social History Current smoker - smoking cessation education provided: Yes - Home Medications Home Medications: Ambulatory Orders Medication Instructions Recorded RX: Famotidine [Pepcid] 20 mg PO DAILY #30 tab 04/28/18 RX: Gabapentin [Neurontin] 200 mg PO BID #120 cap 04/28/18 RX: Ibuprofen [Motrin Tab] 600 mg PO Q6 PRN tab 04/28/18 RX: Nicotine 21 mg/24 hr [Nicoderm 1 patch TD DAILY #30 patch 04/28/18 Cq] RX: QUEtiapine [SEROquel] 400 mg PO DAILY@2029 #60 tab 04/28/18 RX: QUEtiapine [Seroquel] 100 mg PO BID #60 tab 04/28/18 - Allergies Allergies/Adverse Reactions: Allergies Allergy/AdvReac Type Severity Reaction Status Date / Time No Known Allergies Allergy Verified 06/14/18 17:48 Review of Systems ROS Statement: Except As Marked, All Systems Reviewed And Found Negative Psych: Positive for: Anxiety, Depression, Suicidal ideation Physical Exam - Reviewed Nursing Documentation Reviewed: Yes Vital Signs Reviewed: Yes - Physical Exam Appears: Positive for: Non-toxic, No Acute Distress Head Exam: Positive for: ATRAUMATIC, NORMOCEPHALIC Skin: Positive for: Normal Color, Warm, Dry Eye Exam: Positive for: Normal appearance Neck: Positive for: Normal, Painless ROM Cardiovascular/Chest: Positive for: Regular Rate, Rhythm. Negative for: Murmur Respiratory: Positive for: Normal Breath Sounds. Negative for: Wheezing, Respiratory Distress Extremity: Positive for: Normal ROM, Other (Clubbing of the digits) Neurologic/Psych: Positive for: Alert, Oriented, Mood/Affect (anxious affect). Negative for: Motor/Sensory Deficits - Laboratory Results Result Diagrams: 06/15/18 04:20 06/15/18 05:10 - ECG O2 Sat by Pulse Oximetry: 96 (RA) Pulse Ox Interpretation: Normal Medical Decision Making Medical Decision Making: Initial Impression: 58 y/o female with anxiety and suicidal ideation insetting of bipolar disorder with hx of Ativan dependence Initial Plan: Crisis evaluation Seroquel 400mg PO Tylenol 975mg PO At 1AM pt evaluated by crisis and will be admitted for further tx Dx Depression Patient is medically stable for psychiatric admission Scribe Attestation: Documented by Yifan Grimes acting as a scribe for Trav Qiu MD. Provider Scribe Attestation: All medical record entries made by the Scribe were at my direction and personally dictated by me. I have reviewed the chart and agree that the record accurately reflects my personal performance of the history, physical exam, medical decision making, and the department course for this patient. I have also personally directed, reviewed, and agree with the discharge instructions and disposition. Disposition - Clinical Impression Clinical Impression: Depression - Patient ED Disposition Is Patient to be Admitted: Yes - Disposition Disposition Time: 01:00 Condition: STABLE
[2018-06-15 04:54] LABS: SQUAMOUS EPITHIAL < 1 /hpf (0-5); URINE BILIRUBIN NEGATIVE (NEGATIVE); URINE BLOOD NEGATIVE (NEGATIVE); URINE CLARITY CLEAR (Clear); URINE COLOR YELLOW (YELLOW); URINE GLUCOSE (UA) NEG (Normal); URINE LEUKOCYTE ESTERASE NEG Leu/uL (Negative); URINE PROTEIN NEGATIVE (NEGATIVE); URINE UROBILINOGEN 0.2-1.0 mg/dL (0.2-1.0)
[2018-06-15 05:02] LABS: BARBITURATES, UR NEGATIVE (NEGATIVE); BENZODIAZEPINES, UR NEGATIVE (NEGATIVE); OPIATES, UR POSITIVE (NEGATIVE)
[2018-06-15 05:12] LABS: BASO % 0.5 % (0.0-2.0); EOS # 0.1 K/uL (0.0-0.7); EOS % 1.3 % (0.0-4.0); HEMOGLOBIN 13.2 g/dL (12.0-16.0); LYMPH % 43.9 % (20.0-40.0); MEAN CORPUSCULAR HEMOGLOBIN 34.7 pg (27.0-31.0); MEAN PLATELET VOLUME 7.4 fl (7.2-11.7); MONO # 0.8 K/uL (0.0-0.8); MONO % 9.4 % (0.0-10.0); NEUT % 44.9 % (50.0-75.0); NRBC % 0.1 % (0.0-0.0); RBC 3.81 Mil/uL (3.80-5.20)
[2018-06-15 05:48] LABS: PHENCYCLIDINE, UR NEGATIVE (NEGATIVE)
[2018-06-15 06:01] VITALS: O2SAT 96
[2018-06-15 06:03] LABS: ALB/GLOB RATIO 1.1 (1.0-2.1); ALBUMIN 3.4 g/dL (3.5-5.0); ALT/SGPT 25 U/L (9-52); AST/SGOT 27 U/L (14-36); BLOOD UREA NITROGEN 9 mg/dl (7-17); CALCIUM 9.2 mg/dL (8.4-10.2); GFR NON-AFRICAN AMERICAN > 60
[2018-06-15] MEDS ORDERED: DiphenhydrAMINE 50 mg/ml Inj IM PRN (06:14)
[2018-06-15] MEDS ORDERED: Magnesium Hydroxide Susp 30 ml UD PO PRN (06:14)
--- NOTE | 2018-06-15 06:27 | PCM.BM ---
<Dinh Flores - Last Filed: 06/15/18 06:25> Treatment Plan Problems - Problems identified on initial assessmt Hopelessness/Helplessness Date Initiated: 06/15/18 Time Initiated: : Assessment reference: NA Status: Active Feelings of Worthlessness Date Initiated: 06/15/18 Time Initiated: 06: Assessment reference: NA Status: Active Altered Sleep Patterns Date Initiated: 06/15/18 Time Initiated: : Assessment reference: NA Status: Active Treatment assets and liabiliti Patient Assests: cooperative, insightful, motivated, ADL independent, good support system, cognitively intact, good interpersonal skills Patient Liabilities: physical pain, substance abuse, medical problems - Milieu Protocol Maintain good personal hygiene: every shift Encourage regular showers, every shift Remind patient to perform daily oral care, every shift Assist patient to perform ADL's Maintain personal safety: daily Educate patient to report safety concerns to staff, daily Monitor environment for contraband/sharps Medication safety: Monitor for expected outcome, potential side effects: daily, Assess barriers to learning: daily, Assess readiness for medication education: daily <Arabella Villarreal - Last Filed: 06/15/18 12:38> - Diagnosis (1) Bipolar disorder Status: Acute Interventions: Medication management, Individual and group therapy, Psychoeducation 06/15/18 12:39 <Sedrick Stanford - Last Filed: 06/19/18 23:49> Family Contact Family involvement: Family/SO is involved Family contact: Patient agrees to contact, Family has been contacted by patient, Telephone contact initiated by staff Family contact name: Víctor Thayer Son - Goals for Treatment Patient goals for treatment: Pt reported she would like her depression and anxiety decreased. Discharge/Continuing Care - Education Needs Education Needs: Family Medication, Family Diagnosis/Disease Process, Family Coping Skills, Family Community resources, Family Aftercare Safety Plan, Patient Medication, Patient Diagnosis/Disease Process, Patient Coping Skills, Patient Community resources, Patient Aftercare Safety Plan - Discharge Discharge Criteria: Tolerates medication w/o severe side effects, Free of Suicidal thoughts, Free of paranoid thoughts, Free of agitation, Normal sleep pattern, Reduction of target symptoms Discharge to:: Home, With Family - Treatment Team Participation Discussed with Family/SO: Yes Was Patient/Family/SO present at Treatment Team Meeting: Yes
--- NOTE | 2018-06-15 06:45 | CARD ---
APPROVED REPORT Date of service: 06/15/2018 EKG Measurement Heart [id number] <Conclusion> Normal sinus rhythm Rightward axis Borderline ECG
--- NOTE | 2018-06-15 07:58 | RAD ---
Date of service: 06/15/2018 HISTORY: admit COMPARISON: 04/12/2018 FINDINGS: LUNGS: No active pulmonary disease. PLEURA: No significant pleural effusion identified, no pneumothorax apparent. CARDIOVASCULAR: Normal. OSSEOUS STRUCTURES: Cervical fusion plating and multiple dental implants noted. Exuberant thoracic spondylosis. VISUALIZED UPPER ABDOMEN: Normal. OTHER FINDINGS: None. IMPRESSION: No interval acute cardiopulmonary pathology noted..
--- NOTE | 2018-06-15 12:43 | PCM.PSYCH ---
Initial Psychiatric Evaluation - Initial Psychiatric Evaluation Type of Admission: Voluntary Legal Status: Capacity Chief Complaint (in patient's own words): "I started using Ativan again." Patient's Reaction to Hospitalization: HPI: 58 yo female w/ h/o Bipolar Disorder, called [facility] yesterday stating that she wanted to kill herself and was brought to the ER. She reports that she has been feeling depressed and suicidal w/ plan to overdose on pills in the context of finding Ativan at home and starting to abuse it again. +Depressed mood +Anxiety +Sleep disturbances. Denies AH/VH/paranoia/delusions. She reports that she has taken Ativan for several years and that it is the only thing that has been helpful for her chronic anxiety. Denies current signs/symptoms of benzo withdrawal. PPHx: 3 previous psychiatric admissions, history of overdosing on pills and Ativan abuse PMHx: H/o Breast CA 2010 s/p lumpectomy/chemo/rad; Cervical spine surgery x 3, chronic nerve pain All: Codeine FHx: Denies h/o mental illness SHx: On SSI, , 1 adult son, lives w/ mom; smoke 1/2 ppd; denies etoh/drugs; recent Ativan abuse Current Medications: Active Medications Generic Name Dose Route Start Last Admin Trade Name Freq PRN Reason Stop Dose Admin Acetaminophen 650 mg 06/15/18 06:14 Tylenol 325mg Tab PO Q4 PRN Pain, moderate (4-7) Al Hydrox/Mg Hydrox/Simethicone 30 ml 06/15/18 06:14 Maalox Plus 30 Ml PO Q4 PRN Dyspepsia Diphenhydramine HCl 50 mg 06/15/18 06:14 Benadryl IM Q6 PRN Extrapyramidal S/S Unable PO Diphenhydramine HCl 50 mg 06/15/18 06:14 Benadryl PO Q6 PRN Extrapyramidal Symptoms Diphenhydramine HCl 50 mg 06/15/18 06:22 Benadryl PO HS PRN Sleep Famotidine 20 mg 06/15/18 12:45 Pepcid PO DAILY DEBI Gabapentin 200 mg 06/15/18 17:00 Neurontin PO BID DEBI Haloperidol 5 mg 06/15/18 06:14 Haldol PO Q4 PRN Agitation Haloperidol Lactate 5 mg 06/15/18 06:14 Haldol IM Q4 PRN Agitation, Unable to Take PO Ibuprofen 600 mg 06/15/18 12:32 Motrin Tab PO Q6 PRN Pain, moderate (4-7) Lorazepam 1 mg 06/15/18 06:14 Ativan IM Q8 PRN Anxiety/Agitation,Unable PO Lorazepam 1 mg 06/15/18 06:14 06/15/18 12:17 Ativan PO 1 mg Q8 PRN Administration Anxiety/Agitation Magnesium Hydroxide 30 ml 06/15/18 06:14 Milk Of Magnesia PO HS PRN Constipation Nicotine 1 patch 06/15/18 12:45 Nicoderm Cq TD DAILY [facility] Quetiapine Fumarate 400 mg 06/15/18 20:30 Seroquel PO DAILY@2030 [facility] Quetiapine Fumarate 100 mg 06/15/18 17:00 Seroquel PO BID [facility] Past Psychiatric History - Past Psychiatric History Pertinent Medical Hx (Current Medical&Sleep Prob, Allergies): Allergies Allergy/AdvReac Type Severity Reaction Status Date / Time No Known Allergies Allergy Verified 06/14/18 17:48 Famotidine [Pepcid] 20 mg PO DAILY #30 tab 04/28/18 Gabapentin [Neurontin] 200 mg PO BID #120 cap 04/28/18 Ibuprofen [Motrin Tab] 600 mg PO Q6 PRN tab 04/28/18 Nicotine 21 mg/24 hr [Nicoderm Cq] 1 patch TD DAILY #30 patch 04/28/18 QUEtiapine [SEROquel] 400 mg PO DAILY@2030 #60 tab 04/28/18 QUEtiapine [Seroquel] 100 mg PO BID #60 tab 04/28/18 Review of Systems - Psychiatric Psychiatric: As Per HPI, Abnormal Sleep Pattern, Anxiety, Behavioral Changes, Change in Appetite, Depression, Difficulty Concentrating, Mood Swings, Suicidal Ideation Mental Status Examination - Personal Presentation Personal Presentation: Looks older than stated age - Affect Affect: Constricted, Depressed - Motor Activity Motor Activity: Calm - Reliability in Providing Information Reliability in Providing Information: Fair - Speech Speech: Organized, Coherent - Mood Mood: Depressed, Anxious - Formal Thought Process Formal Thought Process: No Impairment - Hallucinations/Delusions Additional comments: No AH/VH/paranoia/delusions - Obsessions/Compulsions Obsessions: No Compulsions: No - Cognitive Functions Orientation: Person, Place, Situation, Time Sensorium: Alert Attention/Concentration: Attentive Judgement: Intact, as evidence by: Insight regarding need for hospitalization Memory: Recent intact, as evidence by: Ability to recall events of the day, Remote intact, as evidenced by: Abilit to recall sig. life events, Remote intact, as evidenced by: Ability to recall historical events - Risk Risk: Suicidal - Strength & Assets Inventory Strength & Assets Inventory: Cooperative DSM 5 DX - DSM 5 DSM 5 Diagnosis: Bipolar Disorder; Generalized Anxiety Disorder; Benzodiazepine Use Disorder - Recommended/Plan of Treatment Treatment Recommendations and Plan of Treatment: Bipolar Disorder; Generalized Anxiety Disorder; Benzodiazepine Use Disorder -Admit to psychiatry unit -Individual and group therapy -Nicotine patch -Gabapentin for neuropathy -Restart Seroquel, patient recently ran out of her medications -Monitor for signs/symptoms of benzo withdrawal (none currently present) -Medicine consult -Disposition planning Projected ELOS: 5-10 days Discharge Plan and Discharge Criteria: Discharge when patient is psychiatrically stable - Smoking Cessation Smoking Cessation Initiated: Yes
[2018-06-15] MEDS ORDERED: Pneumococcal 23-Valent Vaccine IM ONE (13:51)
[2018-06-16 09:47] LABS: T4 5.44 ug/dl (5.5-11.0)
--- NOTE | 2018-06-16 10:42 | PCM.PYCHPN ---
Psychiatric Progress Note - Psychiatric Progress Note Patient seen today, length of contact: Pt evaluated, case discussed with team, chart reviewed Patient Chief Complaint: "I'm depressed." Problems Identified/Issues Discussed: Patient continues to report depressed mood, anxiety, poor sleep/appetite and feelings of hopelessness. She denies acute AH/VH/SI/HI. She denies adverse effects to medications. Medication Change: No Medical Record Reviewed: Yes Consults ordered or reviewed: Medicine consult Mental Status Examination - Cognitive Function Orientation: Person, Place, Situation, Time Memory: Intact Attention: WNL Concentration: WNL Association: WNL Fund of Knowledge: [facility] Decription of patient's judgement and insights: Poor I/J - Mood Mood: Depressed, Anxious - Affect Affect: Constricted, Depressed - Speech Speech: Soft - Formal Thought Process Formal Thought Process: No Impairment Psychotic Thoughts and Behaviors: No AH/VH - Suicidal Ideation Suicidal Ideation: No - Homicidal Ideation Homicidal Ideation: No Goal/Treatment Plan - Goal/Treatment Plan Need for Continued Stay: Remain at risks for inpatient hospitalization, Severe depression anxiety Progress Toward Problem(s) and Goals/Treatment Plan: Bipolar Disorder; Generalized Anxiety Disorder; Benzodiazepine Use Disorder -Individual and group therapy -Nicotine patch -Gabapentin for neuropathy -Continue Seroquel -Medicine consult -Disposition planning Estimated Date of D/C: 06/21/18 - Smoking Cessation Smoking Cessation Initiated: Yes
[2018-06-16] MEDS ORDERED: Influenza Vaccine (5 YR UP)/PF 60 MCG/0.5 ML SYR IM ONE (15:00)
--- NOTE | 2018-06-17 11:27 | PCM.PYCHPN ---
Psychiatric Progress Note - Psychiatric Progress Note Patient seen today, length of contact: Pt evaluated, case discussed with team, chart reviewed Patient Chief Complaint: "I'm depressed." Problems Identified/Issues Discussed: Patient continues to report feeling depressed, anxious, hopeless, w/ passive suicidal wishes that she would . No active suicidal ideation/plan/intent. She continues to report chronic pain. She states that the only medication that has ever worked for her is Xanax. Psychoeducation provided that the patient was abusing benzodiazepines in the past and that the patient will not be restarted on treatment with benzodiazepines. Patient is somatically preoccupied and has various somatic complaints throughout the day. Patient states that prior to admission, she was taking a total of Seroquel 800 mg daily prior to running out of her medicaitons. She denies adverse effects to medications. Medication Change: Yes (Increase Seroquel to previous dosage; Increase Neurontin) Medical Record Reviewed: Yes Consults ordered or reviewed: Medicine consult Mental Status Examination - Cognitive Function Orientation: Person, Place, Situation, Time Memory: Intact Attention: WNL Concentration: WNL Association: WNL Fund of Knowledge: [facility] Decription of patient's judgement and insights: Poor I/J - Mood Mood: Depressed, Anxious - Affect Affect: Constricted, Depressed - Speech Speech: Soft - Formal Thought Process Formal Thought Process: No Impairment Psychotic Thoughts and Behaviors: No AH/VH - Suicidal Ideation Suicidal Ideation: Yes Plan: Passive SI - Homicidal Ideation Homicidal Ideation: No Goal/Treatment Plan - Goal/Treatment Plan Need for Continued Stay: Remain at risks for inpatient hospitalization, Severe depression anxiety, Discharge may exacerbated symptoms Progress Toward Problem(s) and Goals/Treatment Plan: Bipolar Disorder; Generalized Anxiety Disorder; Benzodiazepine Use Disorder -Individual and group therapy -Nicotine patch -Increase Gabapentin -Increase Seroquel -Medicine consult -Disposition planning Estimated Date of D/C: 06/21/18
--- NOTE | 2018-06-17 13:56 | CP.PCM.CON ---
History of Present Illness - History of Present Illness History of Present Illness: History taken from patient and review of medical record. This is a 58 year old female with PMHx of bipolar disorder admitted to psychi atry unit on 06/15/18 for suicidal ideation, depression and anxiety. Today, patient reports she feels anxious, has involuntary tremors of hands, and generalized aches and pain. Denies chest pain, dyspnea, nausea or vomiting, headache or dizziness. Patient has hx Ativan use disorder and states she has not taken it the last few days. PMHx: Right Breast Cancer in 2010 s/p Chemo and Radiotherapy with lumpectomy; Bipolar disorder, Involuntary Tremors PSHx: Cervical spine tumor removal X3; Right breast lumpectomy SH: smokes PPD; No Alcohol; Lorazepam abuse; Lives with mother FH: States: No known family hx Allergies: NKDA Medication: Reviewed Review of Systems - Review of Systems All systems: reviewed and no additional remarkable complaints except (as mentioned in HPI) Past Patient History - Infectious Disease Hx of Infectious Diseases: None - Past Medical History & Family History Past Medical History?: Yes - Past Social History Smoking Status: Light Smoker < 10 Cigarettes Daily - CARDIAC Hx Cardia Arrhythmia: No Hx Congestive Heart Failure: No Hx Hypercholesterolemia: No Hx Hypertension: Yes Hx Mitral Valve Prolapse: No Hx Pacemaker: No Hx Peripheral Edema: No - PULMONARY Hx Tuberculosis: No - NEUROLOGICAL Hx Seizures: No - HEENT Hx HEENT Problems: No - RENAL Hx Chronic Kidney Disease: No - ENDOCRINE/METABOLIC Hx Endocrine Disorders: No - HEMATOLOGICAL/ONCOLOGICAL Hx Human Immunodeficiency Virus (HIV): No - INTEGUMENTARY Hx Dermatological Problems: No - MUSCULOSKELETAL/RHEUMATOLOGICAL Hx Musculoskeletal Disorders: Yes Hx Falls: Yes Hx Spinal Stenosis: Yes (cervical fusion/plate) Other/Comment: Spinal Fusion - GASTROINTESTINAL Hx Gastrointestinal Disorders: No - GENITOURINARY/GYNECOLOGICAL Hx Sexually Transmitted Disorders: No - PSYCHIATRIC Hx Substance Use: No - SURGICAL HISTORY Hx Appendectomy: No Hx Cholecystectomy: No Hx Coronary Stent: No - ANESTHESIA Hx Anesthesia: Yes Hx Anesthesia Reactions: No Hx Malignant Hyperthermia: No Meds Allergies/Adverse Reactions: Allergies Allergy/AdvReac Type Severity Reaction Status Date / Time No Known Allergies Allergy Verified 06/14/18 17:48 - Medications Medications: Current Medications Acetaminophen (Tylenol 325mg Tab) 650 mg PO Q4 PRN PRN Reason: Pain, moderate (4-7) Al Hydrox/Mg Hydrox/Simethicone (Maalox Plus 30 Ml) 30 ml PO Q4 PRN PRN Reason: Dyspepsia Diphenhydramine HCl (Benadryl) 50 mg PO HS PRN PRN Reason: Sleep Last Admin: 06/16/18 00:01 Dose: 50 mg Famotidine (Pepcid) 40 mg PO HS [facility] Last Admin: 06/16/18 21:00 Dose: 40 mg Gabapentin (Neurontin) 300 mg PO TID [facility] Last Admin: 06/17/18 12:20 Dose: 300 mg Hydroxyzine Pamoate (Vistaril) 25 mg PO TID PRN PRN Reason: Anxiety Last Admin: 06/16/18 16:32 Dose: 25 mg Ibuprofen (Motrin Tab) 600 mg PO Q6 PRN PRN Reason: Pain, moderate (4-7) Last Admin: 06/16/18 20:39 Dose: 600 mg Magnesium Hydroxide (Milk Of Magnesia) 30 ml PO HS PRN PRN Reason: Constipation Nicotine (Nicoderm Cq) 1 patch TD DAILY [facility] Last Admin: 06/17/18 10:42 Dose: Not Given Ondansetron HCl (Zofran Odt) 4 mg PO Q8H PRN PRN Reason: Nausea/Vomiting Last Admin: 06/17/18 12:44 Dose: 4 mg Propranolol HCl (Inderal) 10 mg PO TID [facility] Last Admin: 06/17/18 12:20 Dose: 10 mg Quetiapine Fumarate (Seroquel) 600 mg PO HS [facility] Quetiapine Fumarate (Seroquel) 200 mg PO DAILY [facility] Trazodone HCl (Desyrel) 50 mg PO HS PRN PRN Reason: insomnia Last Admin: 06/16/18 22:51 Dose: 50 mg Physical Exam - Constitutional Appears: Non-toxic, No Acute Distress, Unkempt Additional comments: thin appearing - Head Exam Head Exam: NORMAL INSPECTION - Eye Exam Eye Exam: EOMI, Normal appearance - ENT Exam ENT Exam: Mucous Membranes Moist - Respiratory Exam Respiratory Exam: Clear to Auscultation Bilateral, NORMAL BREATHING PATTERN. absent: Rhonchi, Wheezes - Cardiovascular Exam Cardiovascular Exam: REGULAR RHYTHM, RRR, +S1, +S2 - GI/Abdominal Exam GI & Abdominal Exam: Normal Bowel Sounds, Soft. absent: Tenderness - Extremities Exam Extremities exam: Positive for: normal inspection - Neurological Exam Neurological exam: Alert, CN II-XII Intact, Oriented x3 Additional comments: B/L tremor of outstretched hands - Psychiatric Exam Psychiatric exam: Anxious - Skin Skin Exam: Normal Color, Warm Results - Vital Signs Recent Vital Signs: Last Vital Signs Temp 98.4 F 06/16/18 16:16 Pulse 81 06/17/18 12:20 Resp 18 06/16/18 16:16 BP 101/69 06/17/18 12:20 Pulse Ox 96 06/15/18 06:50 - Labs Result Diagrams: 06/15/18 04:20 06/15/18 05:10 Labs: Laboratory Results - last 24 hr 06/16/18 08:30 RPR Nonreactive Assessment & Plan - Assessment and Plan (Free Text) Assessment: 58 year old female with PMHx of bipolar disorder admitted to psychiatry unit on 06/15/18 for suicidal ideation, depression and anxiety Plan: Manage as per psychiatry team start propranolol 10 mg PO TID for tremor continue with home medication GI prophylaxis: famotidine 40 mg po hs DVT prophylaxis: encourage ambulation Patient seen, examined and plan d/w Dr. Connie Crespo, pgy-2 .
[2018-06-17] MEDS: Alum-Mag Hydrox-Simethicone Susp (30 mL) PO PRN (17:44)
[2018-06-17] MEDS: QUEtiapine 300 MG TABLET PO SCH (21:03)
[2018-06-18] MEDS: Alum-Mag Hydrox-Simethicone Susp (30 mL) PO PRN ×2 (06:22→13:46)
[2018-06-18] MEDS: Multivitamin With Minerals Tab PO SCH (08:24)
--- NOTE | 2018-06-18 13:15 | PCM.PYCHPN ---
Psychiatric Progress Note - Psychiatric Progress Note Patient seen today, length of contact: Pt evaluated, case discussed with team, chart reviewed Patient Chief Complaint: I still feel anxious Problems Identified/Issues Discussed: pt seen in bed continues to report feeling anxious, anxious affect, denied perceptual disturbances, denied S/H I DSM 5 Symptoms Update: depression anxiety Medication Change: Yes (Increase Seroquel to previous dosage; Increase Neurontin) Medical Record Reviewed: Yes Mental Status Examination - Cognitive Function Orientation: Person, Place, Situation, Time Memory: Intact Attention: WNL Concentration: WNL Association: WNL Fund of Knowledge: WNL - Mood Mood: Depressed, Anxious - Affect Affect: Constricted, Depressed - Speech Speech: Soft - Formal Thought Process Formal Thought Process: No Impairment - Suicidal Ideation Suicidal Ideation: Yes - Homicidal Ideation Homicidal Ideation: No Goal/Treatment Plan - Goal/Treatment Plan Need for Continued Stay: Remain at risks for inpatient hospitalization, Severe depression anxiety, Discharge may exacerbated symptoms Progress Toward Problem(s) and Goals/Treatment Plan: CONTINUE CURRENT MANAGEMENT Estimated Date of D/C: 06/21/18
[2018-06-18] MEDS: QUEtiapine 300 MG TABLET PO SCH (21:08)
[2018-06-19] MEDS: Multivitamin With Minerals Tab PO SCH (08:18)
--- NOTE | 2018-06-19 13:56 | PCM.PYCHPN ---
Psychiatric Progress Note - Psychiatric Progress Note Patient seen today, length of contact: Pt evaluated, case discussed with team, chart reviewed Patient Chief Complaint: I think I need more medicine Problems Identified/Issues Discussed: pt seen in bed continues to report feeling anxious, anxious affect,requesting more medication , denied perceptual disturbances, denied S/H I DSM 5 Symptoms Update: anxiety depression Medication Change: No Medical Record Reviewed: Yes Mental Status Examination - Cognitive Function Orientation: Person, Place, Situation, Time Memory: Intact Attention: WNL Concentration: WNL Association: WNL Fund of Knowledge: WNL - Mood Mood: Depressed, Anxious - Affect Affect: Constricted, Depressed - Speech Speech: Soft - Formal Thought Process Formal Thought Process: No Impairment - Suicidal Ideation Suicidal Ideation: Yes - Homicidal Ideation Homicidal Ideation: No Goal/Treatment Plan - Goal/Treatment Plan Need for Continued Stay: Remain at risks for inpatient hospitalization, Severe depression anxiety, Discharge may exacerbated symptoms Progress Toward Problem(s) and Goals/Treatment Plan: CONTINUE CURRENT MANAGEMENT cbt group and supportive therapy Estimated Date of D/C: 06/21/18
[2018-06-19] MEDS: Alum-Mag Hydrox-Simethicone Susp (30 mL) PO PRN (18:56)
[2018-06-19] MEDS: QUEtiapine 300 MG TABLET PO SCH (21:17)
[2018-06-20] MEDS: Multivitamin With Minerals Tab PO SCH (08:48)
[2018-06-20] MEDS: Alum-Mag Hydrox-Simethicone Susp (30 mL) PO PRN (10:38)
--- NOTE | 2018-06-20 11:09 | PCM.PYCHPN ---
Psychiatric Progress Note - Psychiatric Progress Note Patient seen today, length of contact: Pt evaluated, case discussed with team, chart reviewed Patient Chief Complaint: "I'm anxious." Problems Identified/Issues Discussed: Patient reports that her mood is improving, but she continues to feel anxious, especially when discussing being discharged back to home. She continues to be dramatic at times, with various somatic complaints, including pain and she is seeking pain medications. She denies acute suicidal ideation/plan/intent. Patient has a history of making vague suicidal threats when she is upset/frustrated. No adverse effects to medications reported. Medication Change: No Medical Record Reviewed: Yes Consults ordered or reviewed: Medicine consult Mental Status Examination - Cognitive Function Orientation: Person, Place, Situation, Time Memory: Intact Attention: WNL Concentration: WNL Association: WNL Fund of Knowledge: WNL Decription of patient's judgement and insights: Improving I/J - Mood Mood: Anxious - Affect Affect: Constricted, Depressed - Speech Speech: Appropriate - Formal Thought Process Formal Thought Process: No Impairment Psychotic Thoughts and Behaviors: No AH/VH/paranoia/delusions - Suicidal Ideation Suicidal Ideation: No - Homicidal Ideation Homicidal Ideation: No Goal/Treatment Plan - Goal/Treatment Plan Need for Continued Stay: Severe depression anxiety Progress Toward Problem(s) and Goals/Treatment Plan: Bipolar Disorder; Generalized Anxiety Disorder; Benzodiazepine Use Disorder -Individual and group therapy -Nicotine patch -Continue Gabapentin and Seroquel -Medicine consult -Disposition planning Estimated Date of D/C: 06/21/18
[2018-06-20] MEDS: QUEtiapine 300 MG TABLET PO SCH (21:08)
--- NOTE | 2018-06-21 08:05 | PCM.PYCHPN ---
Psychiatric Progress Note - Psychiatric Progress Note Patient seen today, length of contact: Pt evaluated, case discussed with team, chart reviewed Patient Chief Complaint: "I'm anxious." Problems Identified/Issues Discussed: Patient reports that her mood is improving, but she continues to feel anxious and intermittently hopeless at times. We discussed the importance of compliance with treatment and medications. She is more redirectable on conversation and less labile. Yesterday she made vague suicidal threats, without plan or intent. Patient has a history of making vague suicidal threats when upset and frustrated. Psychoeducation provided on other coping strategies and less dramatic forms of communication. She denies current active suicidal ideation/plan/intent. No adverse effects to medications reported. We discussed likely discharge tomorrow as the patient continues to improve clinically and coping strategies to deal with her life stressors when she is discharged. Medication Change: No Medical Record Reviewed: Yes Consults ordered or reviewed: Medicine consult Mental Status Examination - Cognitive Function Orientation: Person, Place, Situation, Time Memory: Intact Attention: WNL Concentration: WNL Association: WNL Fund of Knowledge: WNL Decription of patient's judgement and insights: Improving I/J - Mood Mood: Anxious - Affect Affect: Constricted, Depressed - Speech Speech: Appropriate - Formal Thought Process Formal Thought Process: No Impairment Psychotic Thoughts and Behaviors: No AH/VH/paranoia/delusions - Suicidal Ideation Suicidal Ideation: No - Homicidal Ideation Homicidal Ideation: No Goal/Treatment Plan - Goal/Treatment Plan Need for Continued Stay: Severe depression anxiety Progress Toward Problem(s) and Goals/Treatment Plan: Bipolar Disorder; Generalized Anxiety Disorder; Benzodiazepine Use Disorder -Individual and group therapy -Nicotine patch -Continue Gabapentin, Seroquel, Trazodone -Medicine consult -Disposition planning- likely discharge to home tomorrow Estimated Date of D/C: 06/22/18 - Smoking Cessation Smoking Cessation Initiated: Yes
[2018-06-21] MEDS: Multivitamin With Minerals Tab PO SCH (08:20)
[2018-06-21] MEDS: QUEtiapine 300 MG TABLET PO SCH (21:02)
[2018-06-22 05:47] VITALS: BP 141/82; PULSE 83; RESP 19; TEMP 97.6
[2018-06-22] MEDS: Multivitamin With Minerals Tab PO SCH (08:35)
--- NOTE | 2018-06-22 08:46 | PCM.PYCHDC ---
Mental Status Examination - Mental Status Examination Orientation: Person, Place, Situation, Time Memory: Intact Mood: Neutral Affect: Broad Speech: Appropriate Attention: WNL Concentration: WNL Association: WNL Fund of Knowledge: WNL Formal Thought Process: No Impairment Description of patient's judgement and insight: Fair I/J Psychotic Thoughts and Behaviors: No AH/VH/paranoia/delusions Suicidal Ideation: No Current Homicidal Ideation?: No Discharge Summary - Discharge Note Reason for Hospitalization: HPI: 58 yo female w/ h/o Bipolar Disorder, called [facility] yesterday stating that she wanted to kill herself and was brought to the ER. She reports that she has been feeling depressed and suicidal w/ plan to overdose on pills in the context of finding Ativan at home and starting to abuse it again. +Depressed mood +Anxiety +Sleep disturbances. Denies AH/VH/paranoia/delusions. She reports that she has taken Ativan for several years and that it is the only thing that has been helpful for her chronic anxiety. Denies current signs/symptoms of benzo withdrawal. PPHx: 3 previous psychiatric admissions, history of overdosing on pills and Ativan abuse PMHx: H/o Breast CA 2010 s/p lumpectomy/chemo/rad; Cervical spine surgery x 3, chronic nerve pain All: Codeine FHx: Denies h/o mental illness SHx: On SSI, , 1 adult son, lives w/ mom; smoke 1/2 ppd; denies etoh/drugs; recent Ativan abuse Consultations:: List each consultation separately and include: 1. Reason for request. 2. Findings. 3. Follow-up Consultations: Medicine consult Summary of Hospital Course include:: 1. Description of specific treatment plan utilized for patients during their course of treatmen. 2. Summarize the time- course for resolution of acute symptoms and/or regressed behaviors. 3. Describe issues identified and worked on during hospitalization. 4. Describe medication utilized. 5. Describe medical problems identified and treated. 6. Reassessment of suicide risk Summary of Hospital Course: Patient was admitted to the psychiatry unit. Individual and group therapy were provided. Patient was stabilized on Seroquel 200 mg PO Daily/600 mg PO HS, Neurontin 300 mg PO TID and Trazodone 50 mg PO HS. She reports improvement in mood. She denies acute depression/anxiety/AH/VH/SI/HI. Psychoeducation provided on the importance of compliance with treatment and medications. Patient is psychiatrically stable for discharge with outpatient follow-up. - Diagnosis (1) Bipolar disorder Current Visit: Yes Status: Chronic - Final Diagnosis (DSM 5) Condition upon Discharge: STABLE DSM 5: Bipolar Disorder Disposition: HOME/ ROUTINE Follow-up Treatment Plan: Bipolar Disorder; Generalized Anxiety Disorder; Benzodiazepine Use Disorder -Individual and group therapy -Nicotine patch -Continue Gabapentin, Seroquel, Trazodone -Medicine consult -Discharge to home with outpatient follow-up Prescriptions/Medication Reconciliation: Gabapentin [Neurontin] 300 mg PO TID #90 cap QUEtiapine [SEROquel] 200 mg PO DAILY #30 tab QUEtiapine [SEROquel] 600 mg PO HS #60 tab traZODone [Desyrel] 50 mg PO HS #30 tab - Smoking Cessation Smoking Cessation Medication prescribed: Yes - Antipsychotic Medications Pt discharged on 2 or more routine antipsychotic medications: No
== END 2018-06-22 13:20 | disposition home or self-care (01) | DRG 430 ==
LOC: H.ER 17:29 → H.ERHOLD 06-15 02:38 → H.PSYCH 06-15 06:11 → H.STEP 06-15 15:04
PROVIDERS: ADMIT Psychiatry & Neurology Psychiatry; ATTEND Psychiatry & Neurology Psychiatry
PROC: GZHZZZZ Group Psychotherapy (ICD-10-PCS; principal; 2018-06-15)
PROC: GZ58ZZZ Individual Psychotherapy, Cognitive-Behavioral (ICD-10-PCS; 2018-06-15)
PROC: GZ56ZZZ Individual Psychotherapy, Supportive (ICD-10-PCS; 2018-06-15)
PROC: 3E02340 Introduction of Influenza Vaccine into Muscle, Percutaneous Approach (ICD-10-PCS; 2018-06-16)
DX: F31.9 Bipolar disorder, unspecified (principal); F13.10 Sedative, hypnotic or anxiolytic abuse, uncomplicated; F41.1 Generalized anxiety disorder; G62.9 Polyneuropathy, unspecified; G89.29 Other chronic pain; I10 Essential (primary) hypertension; R45.851 Suicidal ideations; Z79.899 Other long term (current) drug therapy; Z85.3 Personal history of malignant neoplasm of breast; Z92.21 Personal history of antineoplastic chemotherapy; Z98.1 Arthrodesis status; M48.02 Spinal stenosis, cervical region; F17.210 Nicotine dependence, cigarettes, uncomplicated; Z23 Encounter for immunization